=== PATIENT | male | born 1950 | race Caucasian/White ===

== ENCOUNTER 2019-11-18 07:13 | Inpatient (IN) | payer MEDICARE, SELFPAY ==
[2019-11-18] VITALS (26 sets, daily range): BP systolic 80–144; BP diastolic 56–99; PULSE 71–95; RESP 13–24; TEMP 36.4–38.2; O2SAT 86–100; BMI 41.2
--- NOTE | ~2019-11-18 | US_ITS ---
EXAMINATION: US renal BI DATE: 11/18/2019 12:39 INDICATION: Acute kidney injury. TECHNIQUE: Multiple ultrasound grayscale images of the kidneys were obtained. COMPARISON: Abdomen ultrasound 06/03/2017, CT abdomen and pelvis 05/30/2017 FINDINGS: The right kidney measures cm. The left kidney measures 11.8 x 5.9 x 4.8 cm. There is cortical thinnin g of the kidneys. The kidneys demonstrate normal parenchymal echogenicity. There is a 3.4 cm cyst in left kidney. There is a 4.0 cm mass of right kidney. There is a 14 mm cyst in right kidney. There is no hydronephrosis. The bladder is not well distended. IMPRESSION: 1. Cortical thinning of the kidneys. No hydronephrosis. 2. 4.0 cm mass in right kidney, worsened from 3.1 cm on 06/03/2017, consistent with renal cell carcin edy. Reviewed, dictated and finalized at location A. IMPRESSION: 1. Cortical thinning of the kidneys. No hydronephrosis. 2. 4.0 cm mass in right kidney, worsened from 3.1 cm on 06/03/2017, consistent with renal cell carcinoma.
--- NOTE | ~2019-11-18 | XR_ITS ---
EXAMINATION: XR ankle LT 2V DATE: 11/19/2019 20:14 INDICATION: Left ankle pain TECHNIQUE: Two views of the left ankle are obtained. COMPARISON: None. FINDINGS: Bone alignment is normal. No fracture is identified. There is mild lateral soft tissue swel ling of the ankle. A plantar calcaneal enthesophyte is noted. There is mild osteoarthritis of the mid foot. IMPRESSION: 1. No acute osseous abnormality. Reviewed, dictated and finalized at location A.
--- NOTE | ~2019-11-18 | XR_ITS ---
EXAMINATION: XR chest 1V portable EXAM DATE: 11/20/2019 05:48 INDICATION: Pneumonia. TECHNIQUE: Portable AP frontal chest x-ray was obtained. Comparison is made to prior examination from 11/19/2019. FINDINGS: Sternotomy wires are present without findings to suggest sternal dehiscence. Cardiac silhou ette is enlarged but stable in size compared to prior exam. Cardiac valve replacement. Some abnormal reticulation bilaterally, could be edema and/or pneumonia. There is no significant interval change. T here is no pneumothorax suspected. IMPRESSION: 1. Persistent mildly abnormal reticulation, could be pneumonia and/or edema. 2. Cardiomegaly. Reviewed, dictated and finalized at location A.
--- NOTE | ~2019-11-18 | US_ITS ---
EXAMINATION: US venous doppler [facility] DATE: 11/22/2019 11:17 INDICATION: Lower limb swelling. Shortness of breath. TECHNIQUE: Grayscale ultrasound images without and with compression and Doppler ultrasound images of the bilateral lower extremity veins were obtained. COMPARISON: None. FINDINGS: The visualized portions of right common femoral vein, profunda (deep) femoral vein, femoral vein, pop liteal vein, posterior tibial veins, peroneal veins, gastrocnemius vein and greater saphenous vein ou tflow are patent. The visualized portions of left common femoral vein, profunda femoral vein, femoral vein, popliteal v ein, posterior tibial veins, peroneal veins, gastrocnemius vein and greater saphenous vein outflow ar e patent. IMPRESSION: 1. No deep venous thrombosis in either lower limb. Reviewed, dictated and finalized at location A.
--- NOTE | ~2019-11-18 | XR_ITS ---
EXAMINATION: XR chest 1V portable DATE: 11/22/2019 06:23 INDICATION: Pneumonia TECHNIQUE: frontal view of the chest was obtained. COMPARISON: Chest radiograph dated 11/20/2019 and 11/21/[address] dated 02/26/2019 FINDINGS: No significant interval change in primarily reticular opacities in the bilateral lower lung zones. No pleural effusion or pneumothorax. Cardiomegaly. Median sternotomy wires and mitral valve repair. Sta ble appearance of widening of the central mediastinum likely resulting from unfolding of the aortic a rch exaggerated by rightward rotation of the patient. IMPRESSION: 1. Unchanged reticular opacities in the bilateral lower lung zones which could represent atelectasis, pulmonary edema or pneumonia. 2. Cardiomegaly. Reviewed, dictated and finalized at location A.
--- NOTE | ~2019-11-18 | XR_ITS ---
EXAMINATION: XR chest 1V portable INDICATION: Shortness of breath TECHNIQUE: Portable AP chest at 0831 hours COMPARISON: 04/29/2019 FINDINGS: The lung volumes are low. There are patchy bilateral airspace opacities. Cardiomegaly is no cherie. There is no pleural effusion or pneumothorax. There are changes of cardiac valve surgery. IMPRESSION: 1. Diffuse lung disease which could reflect pneumonia, atelectasis, or pulmonary edema. Reviewed, dictated and finalized at location A. IMPRESSION: 1. Diffuse lung disease which could reflect pneumonia, atelectasis, or pulmonar y edema.
--- NOTE | ~2019-11-18 | XR_ITS ---
EXAMINATION: XR chest 1V portable DATE: 11/23/2019 06:15 INDICATION: Pneumonia TECHNIQUE: frontal view of the chest was obtained. COMPARISON: Chest radiograph dated 11/22/2019 FINDINGS: No significant interval change in mild opacities at the bilateral lower lung zones. No pneumothorax o r definitive pleural effusion. Cardiomegaly. Median sternotomy wires and mitral valve repair. Unchang ed mediastinal silhouette suggesting unfolding of the aortic arch is exaggerated by rightward rotatio n of the patient. IMPRESSION: 1. Unchanged mild opacities in the bilateral lower lung zones which could represent atelectasis, pulm onary edema or pneumonia. 2. Cardiomegaly. Reviewed, dictated and finalized at location A. IMPRESSION: 1. Unchanged mild opacities in the bilateral lower lung zones which could repre sent atelectasis, pulmonary edema or pneumonia. 2. Cardiomegaly.
--- NOTE | ~2019-11-18 | XR_ITS ---
EXAMINATION: XR chest 1V portable DATE: 11/19/2019 05:49 INDICATION: Pneumonia. TECHNIQUE: A single frontal view of the chest was obtained. COMPARISON: Chest single view 11/18/2019, chest CT 02/26/2019 FINDINGS: There are mild airspace opacities in right mid and lower lung zones and left lower lung zon e. No pleural effusion or pneumothorax. Cardiomegaly is noted. There are changes of mitral valve repl acement. IMPRESSION: 1. Slightly worsened mild airspace opacities in right mid and lower lung zones and left lower lung zo ne, consistent with atelectasis versus pneumonia. 2. Cardiomegaly. Reviewed, dictated and finalized at location A. IMPRESSION: 1. Slightly worsened mild airspace opacities in right mid and lower lung zones and left lower lung zone, consistent with atelectasis versus pneumonia. 2. Cardiomegaly.
--- NOTE | ~2019-11-18 | XR_ITS ---
EXAMINATION: XR chest 1V portable EXAM DATE: 11/21/2019 06:31 INDICATION: Pneumonia. TECHNIQUE: Portable AP frontal chest x-ray was obtained. Comparison is made to prior examination from 11/20/2019. FINDINGS: Sternotomy wires are present without findings to suggest sternal dehiscence. Cardiac silho uette is enlarged but stable in size compared to prior exam. Cardiac valve replacement. Some abnormal reticulation bilaterally, could be edema and/or pneumonia. There is no significant interval change. There is no pneumothorax suspected. IMPRESSION: 1. Persistent mildly abnormal reticulation, could be pneumonia and/or edema. 2. Cardiomegaly. Reviewed, dictated and finalized at location A.
--- NOTE | ~2019-11-18 | NM_ITS ---
EXAMINATION: NM pulmonary perfusion DATE: 11/22/2019 10:45 INDICATION: Shortness of breath. Elevated d-dimer. TECHNIQUE: 5.2 mCi Tc-99m MAA by intravenous route. Scintigraphic images of the chest were obtained . COMPARISON: FINDINGS: There is relatively homogeneous perfusion throughout the lungs. No focal perfusion defects appreciate d. IMPRESSION: 1. Low probability for pulmonary embolism. Reviewed, dictated and finalized at location A.
--- NOTE | 2019-11-18 07:17 | ECG_ITS ---
Measurements Intervals Force Rate: 95 P: 263 DC: 126 QRS: -24 QRSD: 113 T: -2 QT: 365 QTc: 460 Interpretive Statements SINUS OR ECTOPIC ATRIAL RHYTHM RSR' IN V1 OR V2, CONSIDER RIGHT VENTRICULAR HYPERTROPHY OR RIGHT VCD BORDERLINE ST-T WAVE ABNORMALITY- ANTERIOR LEADS BASELINE ARTIFACT- I, II, III, AVR, AVL, AVF, V1-V3 ABNORMAL ECG Electronically Signed On 11-18-2019 7:24:56 CDT by Александр Covarrubias D.O.
[2019-11-18 07:28] LABS: Basophils Percent Auto 0.2 % (0.2-1.2); Eosinophils Absolute Auto 0.1 K/mm3 (0-0.3); Eosinophils Percent Auto 0.4 % (0-4.4); Hematocrit 39.2 % (42.0-52.0); Hemoglobin 12.1 g/dL (14.0-18.0); Immature Granulocyte Absolute 0.03 K/mm3 (0.00-0.031); Immature Granulocyte Percent A 0.2 % (0-0.5); Lymphocytes Absolute Auto 1.26 K/mm3 (0.9-3.2); Mean Corpuscular HGB Conc 30.9 g/dl (32-36); Mean Corpuscular Volume 97.3 fl (80-100); Mean Platelet Volume 9.7 fl (7.4-10.4); Monocytes Absolute Auto 0.6 K/mm3 (0.1-0.6); Monocytes Percent Auto 5.1 % (2.6-8.5); Neutrophils Absolute Auto 10.5 K/mm3 (1.3-6.7); Neutrophils Percent Auto 84.1 % (45.5-73.1); Platelet Count Result 291 k/mm3 (150-375); Red Blood Count 4.03 M/mm3 (4.6-6.20); Red Cell Distribution Width 15.4 % (11.5-14.5); White Blood Count 12.5 K/mm3 (4.5-10.0)
[2019-11-18 07:42] LABS: Alanine Aminotransferase 29 U/L (4-50); Albumin Level 4.5 g/dL (3.5-5.1); Alkaline Phosphatase 107 U/L (38-126); Aspartate Amino Transferase 64 U/L (17-59); Bilirubin,Total 0.7 mg/dL (0.2-1.3); Blood Urea Nitrogen 36 mg/dL (9-20); Calcium 9.6 mg/dL (8.4-10.2); Carbon Dioxide 28 mmol/L (22-30); Chloride 98 mmol/L (98-107); Estimated Glomerular Filt Rate 22; Glucose 111 mg/dL (75-110); Potassium 4.4 mmol/L (3.4-5.0); Sodium 135 mmol/L (137-145)
[2019-11-18] MEDS: SODIUM CHLORIDE 0.9% IV 1,000 ML 999 ML IV CONT ×2 (07:50→09:35)
[2019-11-18 08:00] LABS: Add Urine Microscopic? YES; Appearance Urine Clear (Clear); Bacteria Urine Trace /hpf; Bilirubin Urine Negative (Negative); Blood Urine Negative (Negative); Color Urine Yellow (Yellow); Glucose Urine UA Negative (Negative); Hyaline Casts Urine 20-29 /lpf; Ketones Urine Negative (Negative); Leukocyte Esterase Ur Negative LEU/UL (Negative); Mucus Urine Rare /lpf; Nitrate Urine Negative (Negative); Protein Urine 1+ mg/dL (Negative); Specific Grav Ur 1.014 (1.001-1.035); Squamous Epithelial Cell Urine Occasional /hpf (Few); Urobilinogen Urine Negative mg/dL (<2.0)
[2019-11-18 08:06] LABS: Lactic Acid 2.5 mmol/L (0.7-2.1)
[2019-11-18] MEDS: ACETAMINOPHEN 325 MG TABLET 650 MG PO (09:00)
--- NOTE | 2019-11-18 09:34 | ED.GENADULT ---
HPI - General Adult General Chief complaint: Weakness Stated complaint: WEAKNESS Time Seen by Provider: 11/18/19 07:29 Source: patient, family and EMS Mode of arrival: EMS Limitations: no limitations History of Present Illness HPI narrative: 68-year-old with a history of hypertension, CHF, A. fib was brought in by ambulance from home with the complaints of marked weakness. Patient states that he woke up to use the bathroom felt extremely weak and dizzy. He denies any chest pain, shortness of breath, cough. He states that he was feeling normal yesterday. No sick contacts at home. No history of nausea, vomiting or diarrhea. Onset (ago): hour(s) (2) Severity scale (1-10): 7 Exacerbating factors: none Associated symptoms: fever/chills Treatments prior to arrival: none Related Data Home Medications Medication Instructions Recorded Confirmed aspirin [Aspir-81] 11/18/19 buspirone mg 11/18/19 carvedilol 12.5 mg PO BID 11/18/19 duloxetine 30 mg PO DAILY 11/18/19 escitalopram oxalate [Lexapro] 10 mg PO DAILY 11/18/19 furosemide 40 mg PO DAILY 11/18/19 gabapentin 100 mg PO TID 11/18/19 lisinopril 5 mg PO DAILY 11/18/19 metoclopramide HCl 11/18/19 pantoprazole PO 11/18/19 polyethylene glycol 3350 [Miralax] 17 g PO DAILY 11/18/19 potassium chloride meq PO 11/18/19 ropinirole [Requip] 0.25 mg PO BID 11/18/19 sotalol 80 mg PO BID 11/18/19 tamsulosin 0.4 mg PO DAILY 11/18/19 trazodone 11/18/19 Allergies Allergy/AdvReac Type Severity Reaction Status Date / Time [id number] Reductase AdvReac Muscle Pain Verified 11/18/19 08:01 Inhibitor Review of Systems Review of Systems: All systems reviewed & are unremarkable except as noted in HPI and below Constitutional: Constitutional: Reports no additional constitutional complaints Eyes: Eyes: Reports no additional eye complaints ENT: Reports system reviewed and no additional complaints, except as documented Cardiovascular: Cardiovascular: Reports no additional cardiovascular complaints Respiratory: Respiratory: Reports no additional respiratory complaints Gastrointestinal: Gastrointestinal: Reports no additional gastrointestinal complaints Musculoskeletal: Musculoskeletal: Reports no additional musculoskeletal complaints Neurologic: Reports system reviewed and no additional complaints, except as documented PMFSH Past Medical History Medical History (Updated 11/18/19 @ 09:51 by Natanael Hawkins MD) Atrial fibrillation CAD (coronary artery disease) CHF (congestive heart failure) Hypertension Surgical History Surgical History (Updated 11/18/19 @ 09:51 by Natanael Hawkins MD) History of knee replacement Hx of CABG Hx of cholecystectomy Social History Social History (Updated 11/18/19 @ 09:52 by Natanael Hawkins MD) Smoking status: Never smoker Alcohol intake: never Substance use: never Living arrangements: with family Occupation/Education: retired Gender identity (if verbalized by the patient): Female Exam Narrative: Exam Narrative: GENERAL: Well-appearing, well-nourished, and in no acute distress. HEAD: Normocephalic, atraumatic. EYES: PERRLA and EOMI. ENT: Nares clear, no rhinorrhea or epistaxis. Mucous membranes moist. NECK: Supple. CHEST: Clear to auscultation. No respiratory distress. HEART: Regular rate and rhythm. No murmur heard. Normal peripheral pulses. ABDOMEN: Soft, non tender, non distended, normal active bowel sounds. EXTREMITIES: Normal range of motion. No edema. SKIN: Warm, dry, no rash. NEURO: No focal deficits. Alert and oriented x3. PSYCH: Normal mood and affect. Course Vital Signs Vital signs: Vital Signs Temperature 38.2 C H 11/18/19 07:18 Pulse Rate 94 11/18/19 07:18 Respiratory Rate 24 H 11/18/19 07:18 Blood Pressure 104/73 11/18/19 07:18 Pulse Oximetry 86 L 11/18/19 07:18 Temperature 37.2 C 11/18/19 09:17 Pulse Rate 82 11/18/19 09:00 Respiratory Rate 19
[2019-11-18 09:46] LABS: Alveolar/Arterial O2 Gradient 73.8 mmHg; Base Excess ABG -2.9 mEq/l (+/-2.0); Fractional Inspired Oxygen 32 %; HCO3 ABG 21.8 mEq/l (22.0-26.0); Oxygen Content ABG 15.4 %vol (16.0-22.0); Oxyhemoglobin 95.8 % THb (90.0-100.0); PCO2 ABG 37.8 mmHg (35.0-45.0); PO2 ABG 110.1 mmHg (80.0-100.0); PO2 FiO2 Ratio Arterial Blood 3.44 %; Total Hemoglobin 11.3 g/dL (12.0-18.0); pH ABG 7.379 (7.350-7.450)
[2019-11-18 09:47] LABS: Device NASAL CANNULA; Modified Allen's Test Pass; Site Drawn LEFT RADIAL
[2019-11-18 09:49] LABS: Lactate Dehydrogenase 430 U/L (313-618)
[2019-11-18 09:52] LABS: D Dimer 3.75 ug/mL (<0.48)
--- NOTE | 2019-11-18 09:53 | ED.WEAKNESS ---
HPI - Weakness General Chief complaint: Weakness Stated complaint: WEAKNESS Time Seen by Provider: 11/18/19 07:29 Source: patient, family and EMS Mode of arrival: EMS Limitations: no limitations History of Present Illness HPI Narrative: 68-year-old with a history of hypertension, CAD, status post CABG, atrial fibrillation, CHF here with complaints of marked weakness since this morning. Patient states he was feeling fine yesterday woke up to use the restroom felt extremely weak and dizzy family called 911 upon arrival to the ER patient denies any chest pain, shortness of breath. He states that he just feels weak. No sick contacts at home. He denies any nausea, vomiting or diarrhea. Patient states that his temperature yesterday at home was 97. MD Complaint: generalized weakness Onset (ago): hour(s) (2) Duration: constant Location: generalized Severity scale (1-10): 7 Related Data Home Medications Medication Instructions Recorded Confirmed aspirin [Aspir-81] 11/18/19 buspirone mg 11/18/19 carvedilol 12.5 mg PO BID 11/18/19 duloxetine 30 mg PO DAILY 11/18/19 escitalopram oxalate [Lexapro] 10 mg PO DAILY 11/18/19 furosemide 40 mg PO DAILY 11/18/19 gabapentin 100 mg PO TID 11/18/19 lisinopril 5 mg PO DAILY 11/18/19 metoclopramide HCl 11/18/19 pantoprazole PO 11/18/19 polyethylene glycol 3350 [Miralax] 17 g PO DAILY 11/18/19 potassium chloride meq PO 11/18/19 ropinirole [Requip] 0.25 mg PO BID 11/18/19 sotalol 80 mg PO BID 11/18/19 tamsulosin 0.4 mg PO DAILY 11/18/19 trazodone 11/18/19 Allergies Allergy/AdvReac Type Severity Reaction Status Date / Time [id number]-Fon-Fde Reductase AdvReac Muscle Pain Verified 11/18/19 08:01 Inhibitor Review of Systems Review of Systems: All systems reviewed & are unremarkable except as noted in HPI and below Constitutional: Constitutional: Reports as per HPI Eyes: Eyes: Reports no additional eye complaints ENT: Reports system reviewed and no additional complaints, except as documented Cardiovascular: Cardiovascular: Reports no additional cardiovascular complaints Respiratory: Respiratory: Reports no additional respiratory complaints Gastrointestinal: Gastrointestinal: Reports no additional gastrointestinal complaints Genitourinary: Genitourinary: Reports no additional male genitourinary complaints Musculoskeletal: Musculoskeletal: Reports no additional musculoskeletal complaints Neurologic: Reports system reviewed and no additional complaints, except as documented PMFSH Past Medical History Medical History (Updated 11/18/19 @ 09:51 by Natanael Hawkins MD) Atrial fibrillation CAD (coronary artery disease) CHF (congestive heart failure) Hypertension Surgical History Surgical History (Updated 11/18/19 @ 09:51 by Natanael Hawkins MD) History of knee replacement Hx of CABG Hx of cholecystectomy Social History Social History (Updated 11/18/19 @ 09:52 by Natanael Hawkins MD) Smoking status: Never smoker Alcohol intake: never Substance use: never Living arrangements: with family Occupation/Education: retired Gender identity (if verbalized by the patient): Female Exam Narrative: Exam Narrative: GENERAL: Well-appearing, well-nourished, and in no acute distress. HEAD: Normocephalic, atraumatic. EYES: PERRLA and EOMI. ENT: Nares clear, Mucous membranes moist. NECK: Supple. CHEST: Clear to auscultation. No respiratory distress. HEART: Regular rate and rhythm. No murmur heard. Normal peripheral pulses. ABDOMEN: Soft, non tender, non distended, normal active bowel sounds. EXTREMITIES: Normal range of motion. No edema. SKIN: Warm, dry, no rash. NEURO: No focal deficits. Alert and oriented x3. PSYCH: Normal mood and affect. Course Vital Signs Vital signs: Vital Signs Temperature 38.2 C H 11/18/19 07:18 Pulse Rate 94 11/18/19 07:18 Respiratory Rate 24 H 11/18/19 07:18 Blood Pressure 104/73 11/18/19 07:18 Pulse
--- NOTE | 2019-11-18 10:47 | ADMGEN ---
This patient, Emil Wallis, was admitted to Intensive Care Unit-7. Patient/family oriented to hospital policies and general routines including ID bracelet, bed and alarms, visiting hours, pain management, procedures, bathroom and other care routines, personal items, smoking policy, room service/diet, and visiting hours. Valuables list has been completed. Information on how to activate the Rapid Response Team has been discussed. Patient/Family are encouraged to report perceived risks to care and to ask questions if they do not understand what they are told or what they should do.
--- NOTE | 2019-11-18 11:28 | WPDCNINT ---
Assessment and Plan Assessment and plan (1) Sepsis: Qualifiers: Sepsis acute organ dysfunction status: unspecified Sepsis type: sepsis due to unspecified organism Qualified Code(s): A41.9 - Sepsis, unspecified organism Code(s): A41.9 - Sepsis, unspecified organism Status: Acute Assessment and Plan: patient presented with generalized weakness, leukocytosis, lactic acidosis, pneumonia on chest x-ray - repeat lactic acid levels are normal - patient given 2 L IV fluid bolus in the ED and continue patient on maintenance IV fluids - ceftriaxone and azithromycin have been started - blood pressures have been stable, will continue to monitor - blood cultures have been sent (2) Pneumonia: Qualifiers: Laterality: bilateral Lung location: lower lobe of lung Pneumonia type: due to unspecified organism Qualified Code(s): J18.9 - Pneumonia, unspecified organism Code(s): J18.9 - Pneumonia, unspecified organism Status: Acute Assessment and Plan: chest x-ray showed bilateral infiltrates - continue antibiotics as above - Ruling out COVID-19 (3) Generalized weakness: Code(s): R53.1 - Weakness Status: Acute Assessment and Plan: patient with generalized weakness could be related to kidney injury and uremia. Denies any myalgias as such - UA showed multiple hyaline casts, patient could be volume depleted - also with possible pneumonia on chest x-ray patient can be weak - will continue to monitor manage underlying issues (4) Acute kidney injury: Code(s): N17.9 - Acute kidney failure, unspecified Status: Acute Assessment and Plan: creatinine of 2.9 on admission - patient has been given 2 L IV fluids - continue maintenance IV fluids - lactic acid has normalized - will continue monitor renal function, electrolytes and urine output - renal ultrasound has been ordered to rule out obstructive uropathy, also patient stated that there was a lesion on one of his kidneys. (5) Suspected 2019 novel coronavirus infection: Code(s): R68.89 - Other general symptoms and signs Status: Acute Assessment and Plan: Patient presented with weakness, pneumonia on chest x-ray, leukocytosis, fevers of 100.8? F in the ED - [id number]-COV-[id number] PCR swab was sent on 11/18/2019 from the ED. (6) DVT prophylaxis: Code(s): Z29.9 - Encounter for prophylactic measures, unspecified Status: Acute Assessment and Plan: Lovenox renally dosed Additional Plan discussed with patient and updated him with his condition and plan of care. I answered all questions. Patient will be started on healthy diet code status: Full code Critical care time spent: 43 minutes Due to a high probability of clinically significant, life threatening deterioration, the patient required my highest level of preparedness to intervene emergently and I personally spent this critical care time directly and personally managing the patient. This critical care time included obtaining a history; examining the patient; pulse oximetry; ordering and review of studies; arranging urgent treatment with development of a management plan; evaluation of patient's response to treatment; frequent reassessment; and discussions with other providers. It was exclusive of separately billable procedures and treating other patients and teaching time. Please see Assessment and Plan section and the rest of the note for further information on patient assessment and treatment Shift Superintendent Caustic Cresylate Consult Note Consult date: 11/18/19 Time Seen: 10:54 Reason for consult: pneumonia, sepsis, rule out COVID-19, acute kidney injury, lactic acidosis HPI: Emil Wallis is a 68 year old male with past medical history of atrial fibrillation, coronary artery disease with history of CABG, history of CHF, hypertension, history of cholecystectomy and history of knee replacement presented to the ED on
--- NOTE | 2019-11-18 13:19 | PM.IMHP ---
H&P: HPI History of Present Illness Chief complaint: pneumonia Narrative: Emil Wallis is a 68 year old male with sleep apnea and CAD here for weakness. Patient states yesterday was having chills. Had chest ?pressure? off and on for an hour. There is no radiation of the painor shortness of breath. No cough. He denies fever. He has been feeling weak and dizzy. He had a T medications at home. Does feel confused although is oriented. Denies any abdominal pain or diarrhea. No dysuria or hematuria. He denies any exposure to COVID. No sick contacts. No neck pain. He feels weak 'all over'. Patient this morning but up to use the bathroom. As patient try to rise, he slid to the floor. He denies falling. He crawled on the floor until EMS was contacted. Patient was brought to the emergency room for evaluation. In the ER, the patietn noted to have a BP of 80/65 treated with IV fluids. Temp 100.8. CXR reviewed personally showing diffuse lung disease. He was started on Rocephin and Azithromycin. Blood Cx collected. He was tested for COVID. He was admitted for further care. Talked with . PCP started patient on Morphine 15mg Q6hr scheduled. Since starting morphine, patietn more confused and having low BP. Morphine dose was decreased 7.5mg Q6hr about 2 weeks ago with improvement but has been increasing slowly back to the 15mg Q6hr. 2 days ago he was on 15mg Q6hr but yesterday patient was weak and decreased Morphine. No morphine given today. states patient having occasional SOB but could felt to be chronic. Decreasing appetite over the past few weeks. Was on Bactrim (started on 11/09) for the tendon surgery to the right 2nd toe past week. Review of Systems Review of Systems: All systems reviewed & are unremarkable except as noted in HPI and below PMFSH Past Medical History Medical History (System 11/22/19 @ 11:01 by Millie English) Atrial fibrillation CAD (coronary artery disease) with 6 stents CHF (congestive heart failure) Echo in February 2019 EF 40-45% Chronic pain syndrome CKD (chronic kidney disease) stage 3, GFR 30-59 ml/min Depression with anxiety Hyperlipidemia Hypertension Mitral valve regurgitation CHI (obstructive sleep apnea) intolerant to CPAP Renal mass [place] to have Renal Cell CA Spinal stenosis Thoracic aortic aneurysm Surgical History Surgical History (System 11/22/19 @ 11:01 by Millie English) H/O mitral valve replacement [facility] in February 2019 showing severe MR History of knee replacement History of tonsillectomy and adenoidectomy History of total left knee replacement History of total right knee replacement Hx of CABG x3v in 2016 Hx of cholecystectomy Hx of hernia repair Hx of repair of right rotator cuff Hx of toe surgery Family History Family History (System 11/22/19 @ 11:01 by Millie English) Father Pancreatic cancer Father Family history of malignant neoplasm Mother Family history of malignant neoplasm Social History Social History (System 11/22/19 @ 11:01 by Millie English) Social History: Lifelong nonsmoker. Denies drug use. Drinks occasional alcholic beverage. Lives as home with his . 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 He is a full code. he nominates his to be the individual who would make decisions for him if he is unable Smoking status: Never smoker Alcohol intake: never Substance use: never Substance use type: does not use Living arrangements: with family Occupation/Education: retired Gender identity (if verbalized by the patient): Male Spiritual care concerns: No Agree to blood products: Yes Meds Home Medications and Allergies Home Medications Medication Instructions Recorded Confirmed Type furosemide 40 mg tablet 40 mg PO BID #180 tablet 06/10/19 Rx aspirin 81 mg tablet,delayed 81 mg PO DAILY 06/18/19 History release docusate sodium 100 mg capsule 100 mg PO
[2019-11-18] MEDS: PANTOPRAZOLE SODIUM IV 40 MG VIAL IV PUSH (14:20)
[2019-11-18] MEDS: ENOXAPARIN 30 MG/0.3 ML SYRINGE SUB-Q (14:20)
[2019-11-18] MEDS: ESCITALOPRAM OXALATE 10 MG TABLET PO (14:21)
[2019-11-18] MEDS: busPIRone HCL 10 MG TABLET PO ×2 (14:21→20:26)
[2019-11-18] MEDS: DULOXETINE HCL 30 MG CAPSULE.DR 90 MG PO (14:21)
[2019-11-18] MEDS: GABAPENTIN 100 MG CAPSULE PO ×2 (14:22→17:16)
[2019-11-18 21:19] LABS: Influenza Control Positive
[2019-11-19] VITALS (17 sets, daily range): BP systolic 108–142; BP diastolic 65–88; PULSE 86–98; RESP 14–24; TEMP 36.8–37.5; O2SAT 94–100
[2019-11-19] LABS: Creatinine Urine 95.6 mg/dL
[2019-11-19 00:14] LABS: Sodium Urine Random 49 meq/L
[2019-11-19 04:31] LABS: Base Excess ABG -0.1 mEq/l (+/-2.0); Carboxyhemoglobin 0.6 % THb (0-2.0); Fractional Inspired Oxygen 36 %; HCO3 ABG 25.2 mEq/l (22.0-26.0); Methemoglobin ABG 0.3 %THb (0-1.5); Oxygen Content ABG 14.3 %vol (16.0-22.0); Oxygen Saturation ABG 95.9 % (95.0-100.0); Oxyhemoglobin 94.3 % THb (90.0-100.0); PCO2 ABG 43.3 mmHg (35.0-45.0); PO2 ABG 82.5 mmHg (80.0-100.0); PO2 FiO2 Ratio Arterial Blood 2.29 %; Reduced Hemoglobin 4.8 %THb (0-5.0); Total Hemoglobin 10.7 g/dL (12.0-18.0); pH ABG 7.382 (7.350-7.450)
[2019-11-19 04:32] LABS: Device NASAL CANNULA; Modified Allen's Test Pass; Site Drawn LEFT RADIAL
[2019-11-19 05:18] LABS: Basophils Percent Auto 0.4 % (0.2-1.2); Eosinophils Absolute Auto 0.1 K/mm3 (0-0.3); Eosinophils Percent Auto 1.1 % (0-4.4); Hematocrit 33.8 % (42.0-52.0); Hemoglobin 10.7 g/dL (14.0-18.0); Immature Granulocyte Absolute 0.02 K/mm3 (0.00-0.031); Immature Granulocyte Percent A 0.2 % (0-0.5); Lymphocytes Absolute Auto 1.12 K/mm3 (0.9-3.2); Lymphocytes Percent Auto 13.8 % (18.3-44.2); Mean Corpuscular HGB Conc 31.7 g/dl (32-36); Mean Corpuscular Hemoglobin 30.1 pg (26-34); Mean Corpuscular Volume 95.2 fl (80-100); Mean Platelet Volume 9.9 fl (7.4-10.4); Monocytes Absolute Auto 0.7 K/mm3 (0.1-0.6); Monocytes Percent Auto 8.1 % (2.6-8.5); Neutrophils Absolute Auto 6.2 K/mm3 (1.3-6.7); Neutrophils Percent Auto 76.4 % (45.5-73.1); Platelet Count Result 270 k/mm3 (150-375); Red Blood Count 3.55 M/mm3 (4.6-6.20); Red Cell Distribution Width 15.2 % (11.5-14.5); White Blood Count 8.1 K/mm3 (4.5-10.0)
[2019-11-19 05:39] LABS: Blood Urea Nitrogen 30 mg/dL (9-20); Calcium 8.8 mg/dL (8.4-10.2); Carbon Dioxide 24 mmol/L (22-30); Chloride 103 mmol/L (98-107); Estimated CRCL calculation 47 ml/min; Estimated Glomerular Filt Rate 37; Glucose 102 mg/dL (75-110); Lactic Acid 0.7 mmol/L (0.7-2.1); Magnesium 1.8 mg/dL (1.6-2.3); Phosphorus 3.9 mg/dL (2.5-4.5); Potassium 4.1 mmol/L (3.4-5.0); Sodium 137 mmol/L (137-145)
[2019-11-19 05:43] LABS: Complement C3 141 mg/dL (88-165)
[2019-11-19] MEDS: PANTOPRAZOLE SODIUM IV 40 MG VIAL IV PUSH (08:12)
[2019-11-19] MEDS: ENOXAPARIN 30 MG/0.3 ML SYRINGE SUB-Q (08:12)
[2019-11-19] MEDS: GABAPENTIN 100 MG CAPSULE PO ×3 (08:13→16:13)
[2019-11-19] MEDS: DULOXETINE HCL 30 MG CAPSULE.DR 90 MG PO (08:13)
[2019-11-19] MEDS: ESCITALOPRAM OXALATE 10 MG TABLET PO (08:13)
[2019-11-19] MEDS: busPIRone HCL 10 MG TABLET PO ×2 (08:13→20:44)
[2019-11-19] MEDS: polyethylene glycoL 3350 17 GM POWD.PACK PO (08:13)
[2019-11-19 08:19] LABS: Creatine Kinase 780 U/L (55-170)
[2019-11-19] MEDS: ACETAMINOPHEN 325 MG TABLET 650 MG PO ×2 (08:22→20:46)
[2019-11-19] MEDS: ONDANSETRON INJ 4 MG/2 ML VIAL IV PUSH (08:35)
--- NOTE | 2019-11-19 10:07 | PM.IMPN ---
Progress Note: A&P Assessment and Plan (1) Sepsis: Qualifiers: Sepsis acute organ dysfunction status: unspecified Sepsis type: sepsis due to unspecified organism Qualified Code(s): A41.9 - Sepsis, unspecified organism Code(s): A41.9 - Sepsis, unspecified organism Status: Acute Assessment and Plan: Present on admission with fever, tachypnea, hypoxia and leukocytosis. Lactic acid 2.5 and patient with HoTN responsive to IVF. Related to PNA with CXR showing diffuse lung disease. Currently on Rocephin and Azithromycin. (2) Pneumonia: Qualifiers: Laterality: bilateral Lung location: lower lobe of lung Pneumonia type: due to unspecified organism Qualified Code(s): J18.9 - Pneumonia, unspecified organism Code(s): J18.9 - Pneumonia, unspecified organism Status: Acute Assessment and Plan: CXR as mentioned above. Concern for COVID and that his symptoms may worsen. Now on 4L. Continue close observation but okaty to move to IMU. (3) Suspected 2019 novel coronavirus infection: Code(s): R68.89 - Other general symptoms and signs Status: Acute Assessment and Plan: SARS-CcV-2 RNA ordered out of ER. DDimer 3.75 but LDH and Ferritin normal. Influenza negative. Persistent hypoxia and now up to 4L. CXR showing multilobar airspace disease. Continue to follow serial CXR. (4) Acute on chronic kidney failure: Qualifiers: Acute renal failure type: unspecified Chronic kidney disease stage: stage 3 (moderate) Qualified Code(s): N17.9 - Acute kidney failure, unspecified; N18.3 - Chronic kidney disease, stage 3 (moderate) Code(s): N17.9 - Acute kidney failure, unspecified; N18.9 - Chronic kidney disease, unspecified Status: Acute Assessment and Plan: Cr 2.9 on admission. Baseline Cr runs 1.3-1.8 in 2019 so patient well above baseline. states patient has not been eating well over the past few weeks probably related to the morphine. Patient is on Lasix at home. The Bactrim could also have caused MIRNA as well. Also consider related to current infectious process or possibly multifactorial. IVF started and Cr back down to 1.8. Good UOP and pateitn able to tolerate oral intake. DALTON showing no obstructive process. Follow renal function. IVF stopped. (5) Generalized weakness: Code(s): R53.1 - Weakness Status: Acute Assessment and Plan: Suspect this is related to the scheduled Morphine and PNA. His spinal stenosis may also be contributing to his weakness. The severe MR noted by Echo last year also could be causing the weakness as well. He christelle need PT/OT when more stable. Will have him out of bed today. (6) CHF (congestive heart failure): Qualifiers: Heart failure chronicity: chronic Heart failure type: systolic Qualified Code(s): I50.22 - Chronic systolic (congestive) heart failure Code(s): I50.9 - Heart failure, unspecified Status: Acute Assessment and Plan: Echo in February 2019 showing EF 40-45%. CXR reviewed but doubt pulmonary edema. Lasix, Coreg and Lisinopril on hold. Monitor closely. (7) Renal mass: Code(s): N28.89 - Other specified disorders of kidney and ureter Status: Acute Assessment and Plan: Patient with know renal mass concerning for renal cell CA. This has been noted back in 2017 but slow growing. Defer to outpatient for further workup. (8) Atrial fibrillation: Qualifiers: Atrial fibrillation type: paroxysmal Qualified Code(s): I48.0 - Paroxysmal atrial fibrillation Code(s): I48.91 - Unspecified atrial fibrillation Status: Acute Assessment and Plan: Patient with a hx of AFib. Tele showing NSR. Sotalol on hold currently. QTc 460 by EKG on admission. Also on Coreg but not on anticoagulation. Will add back Sotalol and monitor QTc since patient on Azithro as well. Hold Coreg for now.
[2019-11-19] MEDS: MORPHINE SULFATE 2 MG/ML INJ IV PUSH ×2 (10:14→16:11)
[2019-11-19] MEDS: ASPIRIN 81 MG ENTERIC TABLET PO (11:38)
[2019-11-19] MEDS: TAMSULOSIN HCL 0.4 MG CAPSULE PO (11:38)
--- NOTE | 2019-11-19 12:26 | WPDINTPN ---
Progress Note: A&P Assessment and Plan (1) Sepsis: Qualifiers: Sepsis acute organ dysfunction status: unspecified Sepsis type: sepsis due to unspecified organism Qualified Code(s): A41.9 - Sepsis, unspecified organism Code(s): A41.9 - Sepsis, unspecified organism Status: Acute Assessment and Plan: patient presented with generalized weakness, leukocytosis, lactic acidosis, pneumonia on chest x-ray - Lactic acid has normalized, patient taking adequate p.o. intake, urine output has been adequate,creatinine trending down - continue ceftriaxone and azithromycin. - blood pressures have been stable, will continue to monitor - blood cultures have been sent (2) Pneumonia: Qualifiers: Laterality: bilateral Lung location: lower lobe of lung Pneumonia type: due to unspecified organism Qualified Code(s): J18.9 - Pneumonia, unspecified organism Code(s): J18.9 - Pneumonia, unspecified organism Status: Acute Assessment and Plan: chest x-ray showed bilateral infiltrates - continue antibiotics as above - Ruling out COVID-19, SARS-COV-2 PCR has been obtained (3) Generalized weakness: Code(s): R53.1 - Weakness Status: Acute Assessment and Plan: patient with generalized weakness could be related to Uremia, possible weakness secondary to chronic morphine use, Possible due to severe MR. Denies any myalgias as such . Strength 5/5 in all extremities, sensations intact - UA showed multiple hyaline casts, patient could be volume depleted - also with possible pneumonia on chest x-ray, could be causing some weakness - patient will require PT/OT evaluation (4) Acute kidney injury: Code(s): N17.9 - Acute kidney failure, unspecified Status: Acute Assessment and Plan: creatinine of 2.9 on admission - patient was adequately fluid resuscitated, adequate p.o. intake. IV fluids were discontinued on 11/18/2019. - Creatinine down to 1.7 today - lactic acid has normalized - will continue monitor renal function, electrolytes and urine output - renal ultrasound 11/18/2019 showed cortical thickening of kidneys, no hydronephrosis. 4.0 cm mass in the right kidney, worsened from 3.1 cm on 06/03/2017 consistent with renal cell carcinoma. (5) Suspected 2019 novel coronavirus infection: Code(s): R68.89 - Other general symptoms and signs Status: Acute Assessment and Plan: Patient presented with weakness, pneumonia on chest x-ray, leukocytosis, fevers of 100.8? F in the ED - KRUPA-COV-2 PCR swab was sent on 11/18/2019 from the ED - Patient has been afebrile overnight (6) DVT prophylaxis: Code(s): Z29.9 - Encounter for prophylactic measures, unspecified Status: Acute Assessment and Plan: Lovenox renally dosed Additional Plan discussed with patient and updated him with his condition and plan of care. I answered all questions. code status: Full code Critical care time spent: 32 minutes Due to a high probability of clinically significant, life threatening deterioration, the patient required my highest level of preparedness to intervene emergently and I personally spent this critical care time directly and personally managing the patient. This critical care time included obtaining a history; examining the patient; pulse oximetry; ordering and review of studies; arranging urgent treatment with development of a management plan; evaluation of patient's response to treatment; frequent reassessment; and discussions with other providers. It was exclusive of separately billable procedures and treating other patients and teaching time. Please see Assessment and Plan section and the rest of the note for further information on patient assessment and treatment Subjective Date/time seen: 11/19/19 12:26 Reason for consult: pneumonia, sepsis, rule out COVID-19, acute kidney injury, lactic acidosis 11/18
[2019-11-19 13:31] LABS: SARS-CoV-2 RNA PCR Negative
--- NOTE | 2019-11-19 14:52 | PCDIET ---
This patient, Emil Wallis, was received from ICU-7 on 11/19/19 at 1452. Personal belongings list checked and signed. Patient/family oriented to unit policies and routines
[2019-11-19] MEDS: SOTALOL HCL 80 MG TABLET PO (16:13)
[2019-11-19] MEDS: TRAZODONE HCL 50 MG TABLET 100 MG PO (20:45)
[2019-11-19] MEDS: ALPRAZOLAM 0.5 MG TABLET PO (20:48)
[2019-11-20] VITALS (18 sets, daily range): BP systolic 121–137; BP diastolic 68–86; PULSE 81–110; RESP 20–30; TEMP 36.6–39.8; O2SAT 93–99
[2019-11-20] MEDS: MORPHINE SULFATE 2 MG/ML INJ IV PUSH ×3 (00:40→20:49)
[2019-11-20] MEDS: ACETAMINOPHEN 325 MG TABLET 650 MG PO ×2 (04:33→18:47)
[2019-11-20] MEDS: ALPRAZOLAM 0.5 MG TABLET PO (04:33)
[2019-11-20 04:53] LABS: Hematocrit 32.5 % (42.0-52.0); Hemoglobin 10.3 g/dL (14.0-18.0); Mean Corpuscular HGB Conc 31.7 g/dl (32-36); Mean Corpuscular Hemoglobin 30.4 pg (26-34); Mean Corpuscular Volume 95.9 fl (80-100); Mean Platelet Volume 10.2 fl (7.4-10.4); Platelet Count Result 260 k/mm3 (150-375); Red Blood Count 3.39 M/mm3 (4.6-6.20); Red Cell Distribution Width 15.5 % (11.5-14.5)
[2019-11-20 05:06] LABS: Lactic Acid 0.8 mmol/L (0.7-2.1)
[2019-11-20 05:13] LABS: Blood Urea Nitrogen 22 mg/dL (9-20); Carbon Dioxide 27 mmol/L (22-30); Chloride 102 mmol/L (98-107); Estimated CRCL calculation 60 ml/min; Estimated Glomerular Filt Rate 50; Glucose 110 mg/dL (75-110); Magnesium 1.7 mg/dL (1.6-2.3); Phosphorus 3.8 mg/dL (2.5-4.5); Potassium 4.1 mmol/L (3.4-5.0); Sodium 136 mmol/L (137-145)
--- NOTE | 2019-11-20 07:00 | ECG_ITS ---
Measurements Intervals [place] Rate: 81 P: -78 UT: 123 QRS: -22 QRSD: 112 T: 19 QT: 398 QTc: 465 Interpretive Statements SINUS OR ECTOPIC ATRIAL RHYTHM ATRIAL AND VENTRICULAR PREMATURE COMPLEXES INTRAVENTRICULAR CONDUCTION DELAY VOLTAGE CRITERIA FOR LVH NONSPECIFIC ST & T-WAVE ABNORMALITY- ANTEROLAT/LAT LEADS ABNORMAL ECG Electronically Signed On 11-20-2019 7:56:12 CDT by Александр Covarrubias D.O.
[2019-11-20] MEDS: SOTALOL HCL 80 MG TABLET PO ×2 (08:44→18:47)
[2019-11-20] MEDS: ENOXAPARIN 30 MG/0.3 ML SYRINGE SUB-Q (08:44)
[2019-11-20] MEDS: GABAPENTIN 100 MG CAPSULE PO ×3 (08:44→18:47)
[2019-11-20] MEDS: DULOXETINE HCL 30 MG CAPSULE.DR 90 MG PO (08:44)
[2019-11-20] MEDS: busPIRone HCL 10 MG TABLET PO ×2 (08:44→20:48)
[2019-11-20] MEDS: PANTOPRAZOLE 40 MG TABLET PO (08:44)
[2019-11-20] MEDS: TAMSULOSIN HCL 0.4 MG CAPSULE PO (08:45)
[2019-11-20] MEDS: polyethylene glycoL 3350 17 GM POWD.PACK PO (08:45)
[2019-11-20] MEDS: ESCITALOPRAM OXALATE 10 MG TABLET PO (08:45)
[2019-11-20] MEDS: ASPIRIN 81 MG ENTERIC TABLET PO (08:45)
--- NOTE | 2019-11-20 11:56 | PM.IMPN ---
Progress Note: A&P Assessment and Plan (1) Sepsis: Qualifiers: Sepsis acute organ dysfunction status: unspecified Sepsis type: sepsis due to unspecified organism Qualified Code(s): A41.9 - Sepsis, unspecified organism Code(s): A41.9 - Sepsis, unspecified organism Status: Acute Assessment and Plan: Present on admission with fever, tachypnea, hypoxia and leukocytosis. Lactic acid 2.5 and patient with HoTN responsive to IVF. Related to PNA with CXR showing persistent reticulation. Currently on Rocephin and Azithromycin. Wean O2 as toelrated. Consider Lasix as BP toerlates. (2) Pneumonia: Qualifiers: Laterality: bilateral Lung location: lower lobe of lung Pneumonia type: due to unspecified organism Qualified Code(s): J18.9 - Pneumonia, unspecified organism Code(s): J18.9 - Pneumonia, unspecified organism Status: Acute Assessment and Plan: CXR as mentioned above. Was on 4L but wean to 3.5 L now. Continue IV Rocephin and azithromycin. Wean oxygen as tolerated. Blood cultures no growth to date. (3) Suspected 2019 novel coronavirus infection: Code(s): R68.89 - Other general symptoms and signs Status: Acute Assessment and Plan: SARS-CcV-2 RNA ordered out of ER but negative. (4) Acute on chronic kidney failure: Qualifiers: Acute renal failure type: unspecified Chronic kidney disease stage: stage 3 (moderate) Qualified Code(s): N17.9 - Acute kidney failure, unspecified; N18.3 - Chronic kidney disease, stage 3 (moderate) Code(s): N17.9 - Acute kidney failure, unspecified; N18.9 - Chronic kidney disease, unspecified Status: Acute Assessment and Plan: Cr 2.9 on admission. Baseline Cr runs 1.3-1.8 in 2019 so patient well above baseline. states patient has not been eating well over the past few weeks probably related to the morphine. Patient is on Lasix at home. The Bactrim could also have caused MIRNA as well. Also consider related to current infectious process or possibly multifactorial. IVF given and Cr dropped to 1.8. Cr continues to improve off Lasix to 1.4. DALTON showing no obstructive process. Tolerating small amounts of oral intake. Add supplements. Continue to hold lisinopril and Lasix for now. (5) Generalized weakness: Code(s): R53.1 - Weakness Status: Acute Assessment and Plan: Suspect this is related to the scheduled Morphine and PNA. His spinal stenosis may also be contributing to his weakness. The severe MR noted by Echo last year also could be causing the weakness as well. PT/OT started. Adjust pain medications. (6) CHF (congestive heart failure): Qualifiers: Heart failure type: systolic Heart failure chronicity: chronic Qualified Code(s): I50.22 - Chronic systolic (congestive) heart failure Code(s): I50.9 - Heart failure, unspecified Status: Acute Assessment and Plan: Echo in February 2019 showing EF 40-45%. CXR reviewed but doubt pulmonary edema. Lasix, Coreg and Lisinopril on hold. Will resume Coreg first. Monitor closely. (7) Renal mass: Code(s): N28.89 - Other specified disorders of kidney and ureter Status: Acute Assessment and Plan: Patient with know renal mass concerning for renal cell CA. This has been noted back in 2017 but slow growing. Defer to outpatient for further workup/treatment. (8) Atrial fibrillation: Qualifiers: Atrial fibrillation type: paroxysmal Qualified Code(s): I48.0 - Paroxysmal atrial fibrillation Code(s): I48.91 - Unspecified atrial fibrillation Status: Acute Assessment and Plan: Patient with a hx of AFib. Tele showing NSR. Sotalol resumed. QTc 460 on admission and now at 465. Coreg on hold. BP and HR stable so will resume. Per , patient no longer on Xarelto. Continue tele. (9) Depression with anxiety: Code(s): F41
[2019-11-20] MEDS: MAGNESIUM SULF 2 GM/WATER 50ML 2 GM/50 ML BAG IVPB (12:41)
[2019-11-20 19:17] LABS: Complement Total CH50 >60 U/mL (31-60)
[2019-11-20] MEDS: carvediloL 12.5 MG TABLET PO (20:48)
[2019-11-20] MEDS: TRAZODONE HCL 50 MG TABLET 100 MG PO (20:49)
[2019-11-21] VITALS (19 sets, daily range): BP systolic 98–130; BP diastolic 65–88; PULSE 79–119; RESP 18–30; TEMP 36.3–38.4; O2SAT 91–100
[2019-11-21] MEDS: MORPHINE SULFATE 2 MG/ML INJ IV PUSH (02:45)
[2019-11-21] MEDS: ALPRAZOLAM 0.5 MG TABLET PO (04:19)
[2019-11-21 04:52] LABS: Blood Urea Nitrogen 20 mg/dL (9-20); Calcium 9.3 mg/dL (8.4-10.2); Carbon Dioxide 29 mmol/L (22-30); Chloride 99 mmol/L (98-107); Estimated CRCL calculation 69 ml/min; Estimated Glomerular Filt Rate 60; Glucose 111 mg/dL (75-110); Magnesium 1.9 mg/dL (1.6-2.3); Potassium 4.1 mmol/L (3.4-5.0); Sodium 133 mmol/L (137-145)
[2019-11-21] MEDS: ESCITALOPRAM OXALATE 10 MG TABLET PO (08:14)
[2019-11-21] MEDS: TAMSULOSIN HCL 0.4 MG CAPSULE PO (08:14)
[2019-11-21] MEDS: ASPIRIN 81 MG ENTERIC TABLET PO (08:15)
[2019-11-21] MEDS: SOTALOL HCL 80 MG TABLET PO ×2 (08:15→17:43)
[2019-11-21] MEDS: PANTOPRAZOLE 40 MG TABLET PO (08:15)
[2019-11-21] MEDS: DULOXETINE HCL 30 MG CAPSULE.DR 90 MG PO (08:15)
[2019-11-21] MEDS: carvediloL 12.5 MG TABLET PO ×2 (08:15→20:42)
[2019-11-21] MEDS: GABAPENTIN 100 MG CAPSULE PO ×3 (08:15→17:43)
[2019-11-21] MEDS: ENOXAPARIN 30 MG/0.3 ML SYRINGE SUB-Q (08:15)
[2019-11-21] MEDS: AZITHROMYCIN 250 MG TABLET PO (08:15)
[2019-11-21] MEDS: polyethylene glycoL 3350 17 GM POWD.PACK PO (08:15)
[2019-11-21] MEDS: busPIRone HCL 10 MG TABLET PO ×2 (08:15→20:43)
[2019-11-21] MEDS: ACETAMINOPHEN 325 MG TABLET 650 MG PO ×2 (10:11→18:44)
--- NOTE | 2019-11-21 16:31 | PM.IMPN ---
Progress Note: A&P Assessment and Plan (1) Sepsis: Qualifiers: Sepsis acute organ dysfunction status: unspecified Sepsis type: sepsis due to unspecified organism Qualified Code(s): A41.9 - Sepsis, unspecified organism Code(s): A41.9 - Sepsis, unspecified organism Status: Acute Assessment and Plan: Present on admission with fever, tachypnea, hypoxia and leukocytosis. Lactic acid 2.5 and patient with HoTN responsive to IVF. Related to PNA. Currently on Rocephin and Azithromycin. CXR today reviewed showing persistent reticulation. Still having fevers. Wean O2 as tolerated. Consider adjusting abx if fevers persist. (2) Pneumonia: Qualifiers: Laterality: bilateral Lung location: lower lobe of lung Pneumonia type: due to unspecified organism Qualified Code(s): J18.9 - Pneumonia, unspecified organism Code(s): J18.9 - Pneumonia, unspecified organism Status: Acute Assessment and Plan: CXR as mentioned above. Was on 4L but wean to 2L now. Better overall except still with fevers. Continue IV Rocephin and azithromycin. Wean oxygen as tolerated. Blood cultures no growth to date. (3) Suspected 2019 novel coronavirus infection: Code(s): R68.89 - Other general symptoms and signs Status: Acute Assessment and Plan: SARS-CoV-2 RNA ordered out of ER and negative. D-Dimer was positive and felt related to COVID. Could be related to the PNA but will check for VTE now that the COVID test was negative. Was on anticoagulation recently after his knee replacement. Will give Eliquis one dose to cover while awaiting for study results. (4) Acute on chronic kidney failure: Qualifiers: Acute renal failure type: unspecified Chronic kidney disease stage: stage 3 (moderate) Qualified Code(s): N17.9 - Acute kidney failure, unspecified; N18.3 - Chronic kidney disease, stage 3 (moderate) Code(s): N17.9 - Acute kidney failure, unspecified; N18.9 - Chronic kidney disease, unspecified Status: Acute Assessment and Plan: Cr 2.9 on admission. Baseline Cr runs 1.3-1.8 in 2019 so patient well above baseline. states patient has not been eating well over the past few weeks probably related to the morphine. Patient is on Lasix at home. The Bactrim could also have caused MIRNA as well. Also consider related to current infectious process or possibly multifactorial. IVF given and Cr dropped to 1.8. Cr continues to improve off IV fluids to 1.2 today. DALTON showing no obstructive process. Encourage oral intake. Continue to hold lisinopril and Lasix for now given the soft BP (98/48). (5) Generalized weakness: Code(s): R53.1 - Weakness Status: Acute Assessment and Plan: Suspect this is related to the scheduled Morphine and PNA. His spinal stenosis may also be contributing to his weakness. The severe MR noted by Echo last year also could be causing the weakness as well. Continue PT/OT. Advance the Ultram and change Morphine to Percocet. (6) CHF (congestive heart failure): Qualifiers: Heart failure chronicity: chronic Heart failure type: systolic Qualified Code(s): I50.22 - Chronic systolic (congestive) heart failure Code(s): I50.9 - Heart failure, unspecified Status: Acute Assessment and Plan: Echo in February 2019 showing EF 40-45%. CXR as mentioned above. Lasix and Lisinopril on hold. Continue Coreg. Monitor closely. Check Echo given the severe MR. (7) Renal mass: Code(s): N28.89 - Other specified disorders of kidney and ureter Status: Acute Assessment and Plan: Patient with know renal mass concerning for renal cell CA. This has been noted back in 2017 but slow growing. Defer to outpatient for further workup/treatment. (8) Atrial fibrillation: Qualifiers: Atrial fibrillation type: paroxysmal Qualified Code(s): I48.0 - Paroxysmal atr
[2019-11-21] MEDS: TRAZODONE HCL 50 MG TABLET 200 MG PO (20:42)
[2019-11-21] MEDS: APIXABAN 5 MG TABLET 10 MG PO (20:43)
[2019-11-21 22:10] LABS: ANCA Screen Negative (Negative)
[2019-11-22] VITALS (23 sets, daily range): BP systolic 98–130; BP diastolic 50–96; PULSE 75–93; RESP 16–30; TEMP 36.3–36.9; O2SAT 92–99
--- NOTE | 2019-11-22 | ECHO_ITS ---
Patient Info Name: Emil Wallis Age: 68 years : 1950 Gender: Male Ht: 70 in Wt: 285 lbs BSA: 2.58 m2 HR: 80 bpm BP: 127 / 80 mmHg Heart Rhythm: Sinus Rhythm Technical Quality: Poor Exam Date: 11/22/2019 1:04 PM Exam Location: [facility] Pulmonary Patient Status: Inpatient Admit Date: 11/18/2019 Staff Ordering Physician: Mundo Farr MD Trommel Tender: Sharda Lawrence RDCS Attending Provider: Mundo Farr MD Exam Type: CA echo dop color flow w con Study Info Indications - mitral reguritation Complete two-dimensional, color flow and Doppler transthoracic echocardiogram is performed with contrast to opacify the left ventrical and to improve the deliniation of the left ventrical endocarial boarders. Contrast/Agitated Saline Contrast/Ag. Saline: Definity Amount: 1.00 ml Reason for Poor Study: patient body habitus Summary 1. Left ventricular chamber dimension is normal. 2. Left ventricular systolic function is normal, estimated at 55-60%. 3. Left atrial chamber dimension is moderately enlarged. 4. There is mild aortic valve sclerosis. 5. There is trace mitral valve regurgitation. 6. 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 7. Compared to the prior exam from February of 2019 there is no apparent difference. Mitral valve repair continues to be nicely intact. 8. There is some hypokinesis of the inferior segment. Left Ventricle Left ventricular chamber dimension is normal. Left ventricular systolic function is normal, estimated at 55-60%. The left ventricular diastolic function is normal. There is some hypokinesis of the inferior segment. Right Ventricle Right ventricular chamber dimension is normal. Left Atria Left atrial chamber dimension is moderately enlarged. Right Atria Right atrial chamber dimension is normal. Aortic Valve The aortic valve is trileaflet. There is mild aortic valve sclerosis. Pulmonic Valve The pulmonic valve is not well visualized. Mitral Valve The mitral valve has normal leaflets. There is trace mitral valve regurgitation. 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 Tricuspid Valve The tricuspid valve leaflets are normal. Pericardium/Pleural The pericardium appears normal. Aorta The aortic root size at the sinus of Valsalva is normal. Left Ventricular Outflow Tract Name Value Normal LVOT 2D LVOT Diameter 2.44 cm LVOT Doppler LVOT Peak Gradient 4 mmHg LVOT Mean Gradient 3 mmHg LVOT VTI 19.92 cm LVOT VTI/AV VTI Ratio 0.73 LVOT Stroke Volume 92.78 ml LVOT CO 7.99 l/min LVOT CI 3.09 L/min/m2 Pulmonic Valve Name Value Normal RVOT Doppler
[2019-11-22] MEDS: ACETAMINOPHEN 325 MG TABLET 650 MG PO (02:36)
[2019-11-22 04:31] LABS: Albumin 3.4 g/dL (3.8-4.8); Alpha 1 Globulin 0.4 g/dL (0.2-0.3); Alpha 2 Globulin 0.7 g/dL (0.5-0.9); Beta 1 Globulin 0.4 g/dL (0.4-0.6); Protein, Total 6.4 g/dL (6.1-8.1)
[2019-11-22 05:22] LABS: Blood Urea Nitrogen 26 mg/dL (9-20); Calcium 9.3 mg/dL (8.4-10.2); Carbon Dioxide 27 mmol/L (22-30); Chloride 97 mmol/L (98-107); Estimated CRCL calculation 57 ml/min; Estimated Glomerular Filt Rate 50; Glucose 103 mg/dL (75-110); Magnesium 1.8 mg/dL (1.6-2.3); Potassium 3.9 mmol/L (3.4-5.0); Sodium 134 mmol/L (137-145)
[2019-11-22] MEDS: APIXABAN 5 MG TABLET 10 MG PO (09:31)
[2019-11-22] MEDS: ASPIRIN 81 MG ENTERIC TABLET PO (09:32)
[2019-11-22] MEDS: AZITHROMYCIN 250 MG TABLET PO (09:33)
[2019-11-22] MEDS: busPIRone HCL 10 MG TABLET PO ×2 (09:33→20:14)
[2019-11-22] MEDS: carvediloL 12.5 MG TABLET PO ×2 (09:33→20:14)
[2019-11-22] MEDS: GABAPENTIN 100 MG CAPSULE PO ×3 (09:38→18:18)
[2019-11-22] MEDS: PANTOPRAZOLE 40 MG TABLET PO (09:38)
[2019-11-22] MEDS: DULOXETINE HCL 30 MG CAPSULE.DR 90 MG PO (09:38)
[2019-11-22] MEDS: SOTALOL HCL 80 MG TABLET PO ×2 (09:39→18:18)
[2019-11-22] MEDS: polyethylene glycoL 3350 17 GM POWD.PACK PO ×2 (09:40→18:17)
[2019-11-22] MEDS: TAMSULOSIN HCL 0.4 MG CAPSULE PO (09:40)
--- NOTE | 2019-11-22 10:20 | PCOTNOTE ---
Patient unavailable to be seen for OT, in procedure. Will attempt later again this date.
[2019-11-22] MEDS: ESCITALOPRAM OXALATE 10 MG TABLET PO (12:30)
--- NOTE | 2019-11-22 13:46 | PM.IMPN ---
Progress Note: A&P Assessment and Plan (1) Sepsis: Qualifiers: Sepsis acute organ dysfunction status: unspecified Sepsis type: sepsis due to unspecified organism Qualified Code(s): A41.9 - Sepsis, unspecified organism Code(s): A41.9 - Sepsis, unspecified organism Status: Acute Assessment and Plan: Present on admission with fever, tachypnea, hypoxia and leukocytosis. Lactic acid 2.5 and patient with HoTN responsive to IVF. Probably related to PNA. Currently on Rocephin and Azithromycin. CXR today(11/21) showing unchanged reticular opacities. Still with fever again last night. Fevers seem to occur at night. Check MRSA nasal swab and add Vanco. (2) Pneumonia: Qualifiers: Laterality: bilateral Lung location: lower lobe of lung Pneumonia type: due to unspecified organism Qualified Code(s): J18.9 - Pneumonia, unspecified organism Code(s): J18.9 - Pneumonia, unspecified organism Status: Acute Assessment and Plan: CXR as mentioned above. Was on 4L but wean to 2L and remaining stable. Continue IV Rocephin and azithromycin. Vanco to be added today. Wean oxygen as tolerated. Blood cultures no growth to date. (3) Suspected 2019 novel coronavirus infection: Code(s): R68.89 - Other general symptoms and signs Status: Acute Assessment and Plan: SARS-CoV-2 RNA ordered out of ER and negative. D-Dimer was positive and initally felt related to COVID. Bilateral LE venous doppler negative. VQ scan low probability. Resume Lovenox for DVT prophylaxis. (4) Acute on chronic kidney failure: Qualifiers: Acute renal failure type: unspecified Chronic kidney disease stage: stage 3 (moderate) Qualified Code(s): N17.9 - Acute kidney failure, unspecified; N18.3 - Chronic kidney disease, stage 3 (moderate) Code(s): N17.9 - Acute kidney failure, unspecified; N18.9 - Chronic kidney disease, unspecified Status: Acute Assessment and Plan: Cr 2.9 on admission. Baseline Cr runs 1.3-1.8 in 2019 so patient well above baseline. states patient has not been eating well over the past few weeks probably related to the morphine. Patient is on Lasix at home. The Bactrim could also have caused MIRNA as well. Also consider related to current infectious process or possibly multifactorial. IVF given and Cr back to baseline. DALTON showing no obstructive process. BP better so will add back low dose oral Lasix and advance as tolerated. Monitor closely (5) Generalized weakness: Code(s): R53.1 - Weakness Status: Acute Assessment and Plan: Suspect this is related to the scheduled Morphine and PNA. His spinal stenosis may also be contributing to his weakness. The severe MR noted by [facility] last year also could be causing the weakness as well. Continue PT/OT. Pain medications adjusted. Continue to follow. Will likely need SNF placement. (6) CHF (congestive heart failure): Qualifiers: Heart failure chronicity: chronic Heart failure type: systolic Qualified Code(s): I50.22 - Chronic systolic (congestive) heart failure Code(s): I50.9 - Heart failure, unspecified Status: Acute Assessment and Plan: Echo in February 2019 showing EF 40-45%. CXR as mentioned above. Lasix and Lisinopril on hold. Continue Coreg. Echo ordered given the severe MR and is pending. Low dose lasix. (7) Renal mass: Code(s): N28.89 - Other specified disorders of kidney and ureter Status: Acute Assessment and Plan: Patient with know renal mass concerning for renal cell CA. This has been noted back in 2017 but slow growing. Defer to outpatient for further workup/treatment. (8) Atrial fibrillation: Qualifiers: Atrial fibrillation type: paroxysmal Qualified Code(s): I48.0 - Paroxysmal atrial fibrillation Code(s): I48.91 - Unspecified atrial fibrillation Status: Acute
[2019-11-22] MEDS: PERFLUTREN LIPID MICROSPHERES 1.5 ML VIAL DILUTED TO 10 ML TOTAL VOLUME (13:47)
[2019-11-22] MEDS: FUROSEMIDE 20 MG TABLET PO ×2 (15:24→18:19)
[2019-11-22] MEDS: TRAMADOL HCL 50 MG TABLET PO (15:25)
[2019-11-22] MEDS: TRAZODONE HCL 50 MG TABLET 200 MG PO (20:13)
[2019-11-22] MEDS: ALPRAZOLAM 0.5 MG TABLET PO (21:47)
[2019-11-22 23:13] LABS: Abnormal Protein Band 1 3 mg/dL; Creatinine, Random Urine 95 mg/dL (20-320); Total Protein/Creatinine Ratio 137 mg/g creat (22-128)
[2019-11-23] VITALS (14 sets, daily range): BP systolic 121–136; BP diastolic 55–99; PULSE 64–88; RESP 16–30; TEMP 36.7–37.7; O2SAT 92–94
[2019-11-23 05:20] LABS: Basophils Percent Auto 0.2 % (0.2-1.2); Eosinophils Absolute Auto 0.1 K/mm3 (0-0.3); Eosinophils Percent Auto 0.8 % (0-4.4); Hematocrit 28.1 % (42.0-52.0); Hemoglobin 9.2 g/dL (14.0-18.0); Immature Granulocyte Absolute 0.03 K/mm3 (0.00-0.031); Immature Granulocyte Percent A 0.4 % (0-0.5); Lymphocytes Absolute Auto 1.61 K/mm3 (0.9-3.2); Lymphocytes Percent Auto 19.5 % (18.3-44.2); Mean Corpuscular HGB Conc 32.7 g/dl (32-36); Mean Corpuscular Hemoglobin 30.4 pg (26-34); Mean Corpuscular Volume 92.7 fl (80-100); Mean Platelet Volume 10.4 fl (7.4-10.4); Monocytes Absolute Auto 1.3 K/mm3 (0.1-0.6); Monocytes Percent Auto 15.8 % (2.6-8.5); Neutrophils Absolute Auto 5.2 K/mm3 (1.3-6.7); Neutrophils Percent Auto 63.3 % (45.5-73.1); Platelet Count Result 307 k/mm3 (150-375); Red Blood Count 3.03 M/mm3 (4.6-6.20); Red Cell Distribution Width 15.7 % (11.5-14.5); White Blood Count 8.3 K/mm3 (4.5-10.0)
[2019-11-23 05:41] LABS: Blood Urea Nitrogen 29 mg/dL (9-20); Calcium 8.9 mg/dL (8.4-10.2); Carbon Dioxide 30 mmol/L (22-30); Chloride 97 mmol/L (98-107); Estimated CRCL calculation 67 ml/min; Estimated Glomerular Filt Rate 60; Glucose 94 mg/dL (75-110); Magnesium 1.7 mg/dL (1.6-2.3); Potassium 3.9 mmol/L (3.4-5.0); Sodium 133 mmol/L (137-145)
[2019-11-23] MEDS: TRAMADOL HCL 50 MG TABLET PO ×2 (08:02→18:53)
[2019-11-23] MEDS: SOTALOL HCL 80 MG TABLET PO ×2 (08:04→20:44)
[2019-11-23] MEDS: GABAPENTIN 100 MG CAPSULE PO ×3 (08:04→20:36)
[2019-11-23] MEDS: PANTOPRAZOLE 40 MG TABLET PO (08:04)
[2019-11-23] MEDS: busPIRone HCL 10 MG TABLET PO ×2 (08:04→20:37)
[2019-11-23] MEDS: carvediloL 12.5 MG TABLET PO ×2 (08:05→20:36)
[2019-11-23] MEDS: FUROSEMIDE 20 MG TABLET PO ×2 (08:06→20:39)
[2019-11-23] MEDS: DULOXETINE HCL 30 MG CAPSULE.DR 90 MG PO (08:06)
[2019-11-23] MEDS: ASPIRIN 81 MG ENTERIC TABLET PO (08:06)
[2019-11-23] MEDS: ESCITALOPRAM OXALATE 10 MG TABLET PO (08:09)
[2019-11-23] MEDS: polyethylene glycoL 3350 17 GM POWD.PACK PO ×2 (08:10→18:53)
[2019-11-23] MEDS: TAMSULOSIN HCL 0.4 MG CAPSULE PO (08:11)
--- NOTE | 2019-11-23 10:37 | PM.IMPN ---
Progress Note: A&P Assessment and Plan (1) Sepsis: Qualifiers: Sepsis acute organ dysfunction status: unspecified Sepsis type: sepsis due to unspecified organism Qualified Code(s): A41.9 - Sepsis, unspecified organism Code(s): A41.9 - Sepsis, unspecified organism Status: Acute Assessment and Plan: Criteria met on admission. Result of pneumonia. Remains on IV vancomycin, ceftriaxone and azithromycin. Currently without fever and on room air. Telemetry reviewed on 11/23/2019 with sinus rhythm. Will transfer to medical floor as improving. Continue PT/OT. Anticipate will need SNF at discharge. (2) Pneumonia: Qualifiers: Laterality: bilateral Lung location: lower lobe of lung Pneumonia type: due to unspecified organism Qualified Code(s): J18.9 - Pneumonia, unspecified organism Code(s): J18.9 - Pneumonia, unspecified organism Status: Acute Assessment and Plan: Chest x-ray on admission with diffuse lung disease. Follow up chest x-ray on 11/23/2019 with unchanged mild opacities in bilateral lower lung zones. Clinically appears improved. Will continue IV vancomycin and ceftriaxone. On room air. Will monitor. (3) Acute on chronic kidney failure: Qualifiers: Acute renal failure type: unspecified Chronic kidney disease stage: stage 3 (moderate) Qualified Code(s): N17.9 - Acute kidney failure, unspecified; N18.3 - Chronic kidney disease, stage 3 (moderate) Code(s): N17.9 - Acute kidney failure, unspecified; N18.9 - Chronic kidney disease, unspecified Status: Acute Assessment and Plan: Creatinine elevated on admission but now improved to 1.20 today. No longer on IV fluids. Will monitor. (4) Generalized weakness: Code(s): R53.1 - Weakness Status: Acute Assessment and Plan: Suspect this is related to the scheduled morphine and pneumonia. His spinal stenosis may also be contributing to his weakness. Severe MR noted by [facility] last year also could be causing the weakness as well. Continue PT/OT. Pain medications adjusted. Anticipate need for SNF as noted above. (5) Suspected 2019 novel coronavirus infection: Code(s): R68.89 - Other general symptoms and signs Status: Acute Assessment and Plan: SARS-CoV-2 RNA ordered out of ER and negative. D-Dimer was positive and initally felt related to COVID. Bilateral lower extremity venous Dopplers negative. V/Q scan low probability. (6) Renal mass: Code(s): N28.89 - Other specified disorders of kidney and ureter Status: Acute Assessment and Plan: Patient with know renal mass concerning for renal cell cancer. This has been noted back in 2017 but slow growing. Will need follow-up as outpatient. (7) CHF (congestive heart failure): Qualifiers: Heart failure chronicity: chronic Heart failure type: systolic Qualified Code(s): I50.22 - Chronic systolic (congestive) heart failure Code(s): I50.9 - Heart failure, unspecified Status: Acute Assessment and Plan: Echocardiogram in February 2019 with EF 40-45%. New echocardiogram with EF 55-60%. Some hypokinesis of inferior segment. CXR as mentioned above. Continue Coreg and Lasix. Resume lisinopril in a.m.. Will monitor. (8) Atrial fibrillation: Qualifiers: Atrial fibrillation type: paroxysmal Qualified Code(s): I48.0 - Paroxysmal atrial fibrillation Code(s): I48.91 - Unspecified atrial fibrillation Status: Acute Assessment and Plan: Current telemetry with sinus rhythm. Continue sotalol and Coreg. No longer on Xarelto. Will monitor. (9) DVT prophylaxis: Code(s): Z29.9 - Encounter for prophylactic measures, unspecified Status: Acute Assessment and Plan: Lovenox. Time Spent With Patient Time with patient: 15 - 25 minutes Subjective Date/time seen: 11/23/19 10:37 Interval history: Date of Service: 11/22
[2019-11-23] MEDS: ENOXAPARIN 40 MG/0.4 ML SYRINGE SUB-Q (10:59)
[2019-11-23] MEDS: TOLNAFTATE 1% POWDER 45 GM BTL 1 APPLIC TOPICAL ×2 (12:30→20:45)
[2019-11-23] MEDS: ALPRAZOLAM 0.5 MG TABLET PO (12:31)
--- NOTE | 2019-11-23 13:56 | PC.NURSE ---
1030- status changed to med/surg status; 1350- report given to Angelica RN - pt transferred to room [id number] bed accompanied by staff
--- NOTE | 2019-11-23 14:00 | PC.NURSE ---
Transfer received from IMU. Report received from BASIL Ch.
--- NOTE | 2019-11-23 16:45 | PC.NURSE ---
Call to pharmacy to request 1700 meds. Meds will be administered when delivered from pharmacy.
[2019-11-23] MEDS: TRAZODONE HCL 50 MG TABLET 200 MG PO (20:39)
[2019-11-24] VITALS (13 sets, daily range): BP systolic 103–130; BP diastolic 53–78; PULSE 70–98; RESP 16–22; TEMP 36.3–37.7; O2SAT 91–100; BMI 10.0
[2019-11-24 07:00] LABS: Blood Urea Nitrogen 27 mg/dL (9-20); Carbon Dioxide 29 mmol/L (22-30); Chloride 97 mmol/L (98-107); Estimated CRCL calculation 67 ml/min; Estimated Glomerular Filt Rate 60; Glucose 103 mg/dL (75-110); Magnesium 1.8 mg/dL (1.6-2.3); Sodium 134 mmol/L (137-145)
[2019-11-24] MEDS: ALPRAZOLAM 0.5 MG TABLET PO ×2 (07:00→17:33)
[2019-11-24] MEDS: ENOXAPARIN 40 MG/0.4 ML SYRINGE SUB-Q (08:57)
[2019-11-24] MEDS: TOLNAFTATE 1% POWDER 45 GM BTL 1 APPLIC TOPICAL ×2 (09:02→20:28)
[2019-11-24] MEDS: lisinopriL 5 MG TABLET PO (09:02)
[2019-11-24] MEDS: PANTOPRAZOLE 40 MG TABLET PO (09:03)
[2019-11-24] MEDS: DULOXETINE HCL 30 MG CAPSULE.DR 90 MG PO (09:03)
[2019-11-24] MEDS: ESCITALOPRAM OXALATE 10 MG TABLET PO (09:03)
[2019-11-24] MEDS: ASPIRIN 81 MG ENTERIC TABLET PO (09:03)
[2019-11-24] MEDS: TAMSULOSIN HCL 0.4 MG CAPSULE PO (09:04)
[2019-11-24] MEDS: carvediloL 12.5 MG TABLET PO ×2 (09:04→20:38)
[2019-11-24] MEDS: SOTALOL HCL 80 MG TABLET PO ×2 (09:05→16:40)
[2019-11-24] MEDS: FUROSEMIDE 20 MG TABLET PO (09:05)
[2019-11-24] MEDS: GABAPENTIN 100 MG CAPSULE PO ×3 (09:05→16:35)
[2019-11-24] MEDS: busPIRone HCL 10 MG TABLET PO ×2 (09:06→20:27)
[2019-11-24] MEDS: polyethylene glycoL 3350 17 GM POWD.PACK PO (09:06)
--- NOTE | 2019-11-24 15:31 | PM.IMPN ---
Progress Note: A&P Assessment and Plan (1) Sepsis: Qualifiers: Sepsis acute organ dysfunction status: unspecified Sepsis type: sepsis due to unspecified organism Qualified Code(s): A41.9 - Sepsis, unspecified organism Code(s): A41.9 - Sepsis, unspecified organism Status: Acute Assessment and Plan: Criteria met on admission. Result of pneumonia. On IV vancomycin and ceftriaxone. Conmpleted azithromycin. Blood and urine cultures all final and negative. Continue PT/ OT. Has been accepted at [facility] for SNF. Will discharge today as stable. (2) Pneumonia: Qualifiers: Laterality: bilateral Lung location: lower lobe of lung Pneumonia type: due to unspecified organism Qualified Code(s): J18.9 - Pneumonia, unspecified organism Code(s): J18.9 - Pneumonia, unspecified organism Status: Acute Assessment and Plan: Chest x-ray on admission with diffuse lung disease. Follow up chest x-ray on 11/23/2019 with unchanged mild opacities in bilateral lower lung zones. Clinically now improved. Has been on IV antibiotics since 11/18/2019. Remaining on room air. Will not continue antibiotics at nursing facility as he has had 7 days IV here and clinically improved. (3) Acute on chronic kidney failure: Qualifiers: Acute renal failure type: unspecified Chronic kidney disease stage: stage 3 (moderate) Qualified Code(s): N17.9 - Acute kidney failure, unspecified; N18.3 - Chronic kidney disease, stage 3 (moderate) Code(s): N17.9 - Acute kidney failure, unspecified; N18.9 - Chronic kidney disease, unspecified Status: Acute Assessment and Plan: Creatinine elevated on admission but now improved and stable at 1.20 again today. No longer on IV fluids. Can follow at SNF. (4) Generalized weakness: Code(s): R53.1 - Weakness Status: Acute Assessment and Plan: Suspect this is related to the scheduled morphine and pneumonia. His spinal stenosis may also be contributing to his weakness. Severe MR noted by [facility] last year also could be causing the weakness as well. Continue PT/OT. Pain medications adjusted. Plan to discharge to [facility] as noted above. (5) Suspected 2019 novel coronavirus infection: Code(s): R68.89 - Other general symptoms and signs Status: Ruled-out Assessment and Plan: SARS-CoV-2 RNA ordered out of ER and negative. D-Dimer was positive and initally felt related to COVID. Bilateral lower extremity venous Dopplers negative. V/Q scan low probability. (6) Renal mass: Code(s): N28.89 - Other specified disorders of kidney and ureter Status: Acute Assessment and Plan: Patient with known renal mass concerning for renal cell cancer. This has been noted back in 2017 but slow growing. Will need follow-up as outpatient. (7) CHF (congestive heart failure): Qualifiers: Heart failure type: systolic Heart failure chronicity: chronic Qualified Code(s): I50.22 - Chronic systolic (congestive) heart failure Code(s): I50.9 - Heart failure, unspecified Status: Acute Assessment and Plan: Echocardiogram in February 2019 with EF 40-45%. New echocardiogram with EF 55-60%. Some hypokinesis of inferior segment. CXR as mentioned above. Currently stable. Continue Coreg, lisinopril and Lasix. (8) Atrial fibrillation: Qualifiers: Atrial fibrillation type: paroxysmal Qualified Code(s): I48.0 - Paroxysmal atrial fibrillation Code(s): I48.91 - Unspecified atrial fibrillation Status: Acute Assessment and Plan: Remains in sinus rhythm. Continue sotalol and Coreg. No longer on Xarelto. (9) DVT prophylaxis: Code(s): Z29.9 - Encounter for prophylactic measures, unspecified Status: Acute Assessment and Plan: Lovenox. Time Spent With Patient Time with patient: 15 - 25 minutes Subjective Date/time seen: 11/24/19
--- NOTE | 2019-11-24 17:43 | PM.DS ---
DS: Diagnosis Admitting Diagnosis Admitting Diagnosis: Sepsis, unspecified organism Discharge Diagnosis (1) Sepsis: Qualifiers: Sepsis acute organ dysfunction status: unspecified Sepsis type: sepsis due to unspecified organism Qualified Code(s): A41.9 - Sepsis, unspecified organism Code(s): A41.9 - Sepsis, unspecified organism Status: Acute (2) Pneumonia: Qualifiers: Laterality: bilateral Lung location: lower lobe of lung Pneumonia type: due to unspecified organism Qualified Code(s): J18.9 - Pneumonia, unspecified organism Code(s): J18.9 - Pneumonia, unspecified organism Status: Acute (3) Acute on chronic kidney failure: Qualifiers: Acute renal failure type: unspecified Chronic kidney disease stage: stage 3 (moderate) Qualified Code(s): N17.9 - Acute kidney failure, unspecified; N18.3 - Chronic kidney disease, stage 3 (moderate) Code(s): N17.9 - Acute kidney failure, unspecified; N18.9 - Chronic kidney disease, unspecified Status: Acute (4) Generalized weakness: Code(s): R53.1 - Weakness Status: Acute (5) Suspected 2019 novel coronavirus infection: Code(s): R68.89 - Other general symptoms and signs Status: Ruled-out (6) Renal mass: Code(s): N28.89 - Other specified disorders of kidney and ureter Status: Acute (7) CHF (congestive heart failure): Qualifiers: Heart failure chronicity: chronic Heart failure type: systolic Qualified Code(s): I50.22 - Chronic systolic (congestive) heart failure Code(s): I50.9 - Heart failure, unspecified Status: Acute (8) Atrial fibrillation: Qualifiers: Atrial fibrillation type: paroxysmal Qualified Code(s): I48.0 - Paroxysmal atrial fibrillation Code(s): I48.91 - Unspecified atrial fibrillation Status: Acute DS: Summary Hospital Course Reason for hospitalization: Weakness. Hospital Course: Date of Service of Discharge: November 24, 2019. History of Present Illness: Patient is a 68-year-old male with sleep apnea and coronary artery disease who presented to the emergency room with complaint of weakness. Patient also reports having chest pressure off and on for 1 hour along with chills the day before presentation. No radiation of pain or shortness of breath. No recorded fever. He did notice dizziness in addition to weakness. Reports feeling confused although oriented. No abdominal pain or diarrhea. No urinary symptoms. No exposure to COVID to his knowledge. Patient reports getting up to the bathroom on the morning of presentation. As he tried to rise, he slid to the floor was unable to get up. He was able to crawl on the floor until EMS was contacted and subsequently brought into the emergency room. In the emergency room, he was noted to be hypotensive with low-grade temperature of 100.8?. Chest x-ray with diffuse lung disease. Of note, recently patient was started on morphine scheduled. Given his findings, COVID-19 testing was initiated patient was admitted for further evaluation and treatment. Course in Hospital: Patient was initially admitted to the IMU with isolation until COVID-19 testing was negative. He was started on IV azithromycin and ceftriaxone for pneumonia. Eventually IV vancomycin was added as he was still having some fevers but this resolved prior to discharge. Azithromycin was changed from IV to oral formulation prior to completion of that treatment. Blood cultures were performed and negative. Urine culture was negative. Respiratory status gradually improved with patient having no cough or shortness of breath by discharge. Lungs were clear. Patient was not requiring oxygen at discharge. He was actually able to transfer from the IMU to the medical floor on 11/23/2019 and remained there for the duration of his stay. He was also noted to have acute kidney injury which improved with rehydration. He does
[2019-11-24] MEDS: TRAMADOL HCL 50 MG TABLET PO (19:37)
[2019-11-24] MEDS: TRAZODONE HCL 50 MG TABLET 200 MG PO (20:27)
[2019-11-24] MEDS: ACETAMINOPHEN 325 MG TABLET 650 MG PO (20:37)
== END 2019-11-24 21:35 | DRG 871 ==
LOC: ANHED 09:41 → ANHICU 11-19 14:38 → ANHIMU 11-19 23:18 → ANH3MED 11-23 15:17 → ANHICU 11-26 07:59 → ANHIMU 11-26 07:59
PROVIDERS: Internal Medicine; Admitting Provider Internal Medicine; Emergency Provider Family Medicine; PCP Internal Medicine; Visit Provider Hospitalist
DX: A41.9 Sepsis, unspecified organism (principal); J18.9 Pneumonia, unspecified organism; I13.0 Hypertensive heart and chronic kidney disease with heart failure and stage 1 through stage 4 chronic kidney disease, or unspecified chronic kidney disease; I50.22 Chronic systolic (congestive) heart failure; I48.20 Chronic atrial fibrillation, unspecified; N17.9 Acute kidney failure, unspecified; N18.3 Chronic kidney disease, stage 3 (moderate); Z20.828 Contact with and (suspected) exposure to other viral communicable diseases; I25.10 Atherosclerotic heart disease of native coronary artery without angina pectoris; F41.8 Other specified anxiety disorders; G89.4 Chronic pain syndrome; G47.33 Obstructive sleep apnea (adult) (pediatric); M48.00 Spinal stenosis, site unspecified; E78.5 Hyperlipidemia, unspecified; N28.89 Other specified disorders of kidney and ureter; Z95.2 Presence of prosthetic heart valve; Z96.653 Presence of artificial knee joint, bilateral; Z95.1 Presence of aortocoronary bypass graft; Z90.49 Acquired absence of other specified parts of digestive tract; E66.01 Morbid (severe) obesity due to excess calories; Z68.38 Body mass index [BMI] 38.0-38.9, adult
CPT/HCPCS: 36415; 36600; 51701; 71045; 73600; 76775; 78580; 80048; 80053; 81001; 82375; 82550; 82570; 82728; 82805; 83050; 83605; 83615; 83735; 84100; 84155; 84156; 84165; 84166; 84300; 85025; 85027; 85380; 85999; 86021; 86038; 86140; 86160; 86162; 87040; 87086; 87088; 87635; 87804; 93005; 93970; 96361; 96365; 96375; 97110; 97116; 97161; 97165; 97530; 97535; 99285; A9270; A9540; C8929; C9113; J0456; J0696; J1650; J2270; J2405; J3370; J3475; J7030; Q9957; U0003

== ENCOUNTER 2019-12-20 14:31 | Outpatient (CLI) | payer MEDICARE, SELFPAY ==
--- NOTE | ~2019-12-20 | CT_ITS ---
EXAMINATION: CT wrist RT wo con DATE: 12/20/2019 15:22 INDICATION: Right wrist pain TECHNIQUE: High resolution computed tomography (CT) of the right wrist was performed without intraven ous contrast. Additional sagittal and coronal reconstructions were performed. Automated exposure cont rol and iterative reconstruction technique were employed. The dose-length product was 286.66 mGy-cm. COMPARISON: None FINDINGS: Bone alignment is normal. No fracture. There is chondrocalcinosis and dystrophic calcifications in th e soft tissues surrounding the joints of the wrist and carpus. There are several small juxta articula r erosions with overhanging edges including at the distal pole of the scaphoid, at the triquetrum, at the radial styloid process and at the base of the fourth and fifth metacarpals. Mild polyarticular o steoarthritis at the wrist, triscaphe and first and second carpal metacarpal joints. Subarticular lyt ic lesions at the second carpometacarpal joint which could represent osteoarthritis related degenerat norma subarticular cysts or additional erosions. IMPRESSION: 1. Several scattered small juxta articular erosions along with large amount of dystrophic calcificati on in the soft tissues about the carpus which is strongly suggestive of a crystalline arthropathy suc h as gout or calcium pyrophosphate deposition (CPPD) disease. Reviewed, dictated and finalized at location A. IMPRESSION: 1. Several scattered small juxta articular erosions along with large amount of dystrophic calcification in the soft tissues about the carpus which is strongly suggestive of a crystalline arthropathy such as gout or calcium pyrophosphate deposition (CPPD) disease.
[2019-12-20 15:37] LABS: Basophils Percent Auto 0.5 % (0.2-1.2); Eosinophils Absolute Auto 0.2 K/mm3 (0-0.3); Eosinophils Percent Auto 2.5 % (0-4.4); Hematocrit 35.8 % (42.0-52.0); Immature Granulocyte Absolute 0.01 K/mm3 (0.00-0.031); Immature Granulocyte Percent A 0.1 % (0-0.5); Lymphocytes Percent Auto 27.5 % (18.3-44.2); Mean Corpuscular HGB Conc 30.7 g/dl (32-36); Mean Corpuscular Hemoglobin 28.5 pg (26-34); Mean Corpuscular Volume 92.7 fl (80-100); Mean Platelet Volume 9.7 fl (7.4-10.4); Monocytes Absolute Auto 0.9 K/mm3 (0.1-0.6); Monocytes Percent Auto 10.7 % (2.6-8.5); Neutrophils Absolute Auto 4.7 K/mm3 (1.3-6.7); Neutrophils Percent Auto 58.7 % (45.5-73.1); Platelet Count Result 408 k/mm3 (150-375); Red Blood Count 3.86 M/mm3 (4.6-6.20); Red Cell Distribution Width 16.9 % (11.5-14.5)
[2019-12-20 15:51] LABS: Alanine Aminotransferase 18 U/L (4-50); Albumin Level 3.9 g/dL (3.5-5.1); Alkaline Phosphatase 114 U/L (38-126); Aspartate Amino Transferase 22 U/L (17-59); Bilirubin,Total 0.4 mg/dL (0.2-1.3); Blood Urea Nitrogen 24 mg/dL (9-20); Calcium 9.3 mg/dL (8.4-10.2); Carbon Dioxide 33 mmol/L (22-30); Chloride 102 mmol/L (98-107); Estimated Glomerular Filt Rate 55; Glucose 67 mg/dL (75-110); Potassium 4.4 mmol/L (3.4-5.0); Sodium 139 mmol/L (137-145)
== END 2019-12-20 14:32 | disposition home or self-care (01) ==
PROVIDERS: PCP Internal Medicine; Visit Provider Internal Medicine
DX: D64.9 Anemia, unspecified (principal); M25.531 Pain in right wrist; I10 Essential (primary) hypertension; Z79.899 Other long term (current) drug therapy; M79.89 Other specified soft tissue disorders
CPT/HCPCS: 36415; 73200; 80053; 85025

== ENCOUNTER 2020-01-17 15:33 | Outpatient (CLI) | payer MEDICARE, SELFPAY ==
--- NOTE | ~2020-01-17 | XR_ITS ---
EXAMINATION: XR foot RT min 3V DATE: 01/17/2020 16:28 INDICATION: 10 months of right foot pain TECHNIQUE: Dorsoplantar, two oblique and lateral views of the right foot were obtained. COMPARISON: 01/28/2019 FINDINGS: Mild varus angulation at the fifth metatarsophalangeal joint. Third hammertoes deformity and clot fou rth toe. Second toe crosses over the dorsum of the tip of the great toe. No acute fracture. [place] d fracture deformity versus sessile osteochondroma at the posterior right fibular diaphysis. Polyarti cular osteoarthritis, moderate severity at the first tarsal metatarsal joint and mild at many of the remaining tarsal metatarsal, metatarsophalangeal and interphalangeal joints. Moderate-sized plantar c alcaneal spur. IMPRESSION: 1. By articular osteoarthritis in the right mid and forefoot. No acute osseous abnormality. Reviewed, dictated and finalized at location A.
--- NOTE | ~2020-01-17 | XR_ITS ---
EXAMINATION: XR foot LT min 3V DATE: 01/17/2020 16:28 INDICATION: 10 month of left foot pain TECHNIQUE: Dorsoplantar, two oblique and lateral views of the left foot were obtained. COMPARISON: None. FINDINGS: Mild varus angulation at the fifth metatarsophalangeal joint. Alignment is otherwise normal. No acute fracture. The articular osteoarthritis, moderate severity at the first tarsal metatarsal joint and m ild at multiple tarsometatarsal, metatarsophalangeal and interphalangeal joints. Small plantar calcan eal spur. Diffuse mild soft tissue swelling over the dorsum of the fore and midfoot. No left ankle eddi int effusion. IMPRESSION: 1. Polyarticular osteoarthritis in the mid and forefoot. No acute osseous abnormality. Reviewed, dictated and finalized at location A. IMPRESSION: 1. Polyarticular osteoarthritis in the mid and forefoot. No acute osseous abnor mality.
== END 2020-01-17 15:34 | disposition home or self-care (01) ==
PROVIDERS: PCP Internal Medicine; Visit Provider Internal Medicine
DX: M19.071 Primary osteoarthritis, right ankle and foot (principal); M19.072 Primary osteoarthritis, left ankle and foot
CPT/HCPCS: 73630

== ENCOUNTER 2020-01-31 15:31 | Outpatient (CLI) | payer MEDICARE, SELFPAY ==
[2020-01-31 16:17] LABS: Basophils Absolute Auto 0.1 K/mm3 (0.0-0.1); Basophils Percent Auto 0.7 % (0.2-1.2); Eosinophils Absolute Auto 0.1 K/mm3 (0-0.3); Eosinophils Percent Auto 1.5 % (0-4.4); Hematocrit 41.9 % (42.0-52.0); Hemoglobin 13.4 g/dL (14.0-18.0); Immature Granulocyte Absolute 0.02 K/mm3 (0.00-0.031); Immature Granulocyte Percent A 0.3 % (0-0.5); Lymphocytes Absolute Auto 2.19 K/mm3 (0.9-3.2); Lymphocytes Percent Auto 31.9 % (18.3-44.2); Mean Corpuscular Hemoglobin 28.7 pg (26-34); Mean Corpuscular Volume 89.7 fl (80-100); Mean Platelet Volume 9.7 fl (7.4-10.4); Monocytes Absolute Auto 0.7 K/mm3 (0.1-0.6); Monocytes Percent Auto 10.8 % (2.6-8.5); Neutrophils Absolute Auto 3.8 K/mm3 (1.3-6.7); Neutrophils Percent Auto 54.8 % (45.5-73.1); Platelet Count Result 294 k/mm3 (150-375); Red Blood Count 4.67 M/mm3 (4.6-6.20); Red Cell Distribution Width 18.3 % (11.5-14.5); White Blood Count 6.9 K/mm3 (4.5-10.0)
[2020-01-31 16:28] LABS: Partial Thromboplastin Time 31.1 SECONDS (22.3-36.8)
== END 2020-01-31 15:32 | disposition home or self-care (01) ==
PROVIDERS: PCP Internal Medicine
DX: N28.89 Other specified disorders of kidney and ureter (principal); Z01.818 Encounter for other preprocedural examination
CPT/HCPCS: 36415; 85025; 85610; 85730

== ENCOUNTER 2020-04-01 17:11 | Inpatient (IN) | payer MEDICARE, SELFPAY ==
[2020-04-01] VITALS (9 sets, daily range): BP systolic 139–148; BP diastolic 85–99; PULSE 93–105; RESP 20–30; TEMP 36.9–38.2; O2SAT 90–96; BMI 40.0
--- NOTE | ~2020-04-01 | XR_ITS ---
EXAMINATION: XR chest 1V portable 04/01/2020 18:14 INDICATION: Weakness. Dyspnea. PROCEDURE: AP portable chest COMPARISON: Comparison to multiple prior studies sequentially, with oldest reviewed study dated 11/19. FINDINGS: The lungs are clear. The lungs are hyperinflated which is consistent with, but not diagnost ic of chronic obstructive pulmonary disease. Status post median sternotomy for CABG. The cardiomedias tinal silhouette is within normal limits. There are no pleural effusions. There is no pneumothorax suspected. IMPRESSION: 1: NO ACUTE CARDIOPULMONARY DISEASE. Reviewed, dictated and finalized at location A.
--- NOTE | ~2020-04-01 | US_ITS ---
EXAMINATION: US venous doppler [facility] DATE: 04/02/2020 12:30 INDICATION: Lower limb pain and swelling TECHNIQUE: Grayscale ultrasound images without and with compression and Doppler ultrasound images of the bilateral lower extremity veins were obtained. COMPARISON: None. FINDINGS: The visualized portions of right common femoral vein, profunda (deep) femoral vein, femoral vein, pop liteal vein, posterior tibial veins, peroneal veins, gastrocnemius vein and greater saphenous vein ou tflow are patent. The visualized portions of left common femoral vein, profunda femoral vein, femoral vein, popliteal v ein, posterior tibial veins, peroneal veins, gastrocnemius vein and greater saphenous vein outflow ar e patent. IMPRESSION: 1. No deep venous thrombosis in either lower limb. Reviewed, dictated and finalized at location A.
--- NOTE | ~2020-04-01 | CT_ITS ---
EXAMINATION: CTA chest PE protocol DATE: 04/01/2020 20:25 CDT INDICATION: Possible pneumonia.. Shortness of breath. Weakness. TECHNIQUE: Computed tomographic angiography (CTA) of the chest was performed with 100 mL Omnipaque-35 0 intravenous contrast. The dose-length product was 946.20 mGy-cm. Maximum intensity projection 3D-re constructions of the aorta and other arteries were constructed by the technologist on a separate work station. Automated exposure control and iterative reconstruction technique were employed. COMPARISON: CT dated 02/26/2019 FINDINGS: Moderate atherosclerosis. Cardiomegaly. No thoracic lymphadenopathy. No significant pleural or pericardial effusion. There is subcutaneous gas in the anterior wall of the abdomen and chest. Th ere are cholecystectomy clips. Study is limited for evaluation of pulmonary embolism no large central pulmonary embolism. There is patchy right upper and lower lobe airspace disease, compatible with pne umonia. No pneumothorax. No endobronchial lesion. Mild thoracic spondylosis with accentuated kyphosis . Status post median sternotomy for CABG. IMPRESSION: 1. No large central pulmonary embolism. Evaluation for peripheral pulmonary arteries limited by contr ast bolus timing. 2: Patchy right upper and lower lobe airspace disease, compatible with pneumonia. 3: Right anterior abdominal and chest wall of uncertain origin. 4: Cardiomegaly. Reviewed, dictated and finalized at location A. IMPRESSION: 1. No large central pulmonary embolism. Evaluation for peripheral pulmonary art eries limited by contrast bolus timing. 2: Patchy right upper and lower lobe airspace disease, compatible with pneumoni a. 3: Right anterior abdominal and chest wall of uncertain origin. 4: Cardiomegaly.
--- NOTE | ~2020-04-01 | CT_ITS ---
EXAMINATION: CT brain wo con DATE: 04/01/2020 20:13 INDICATION: Weakness. TECHNIQUE: Computed tomography (CT) of the head was performed without intravenous contrast. The dose- length product was 946.20 mGy-cm. The mA was adjusted according to patient size. Iterative reconstruc tion technique was employed. COMPARISON: CT dated 11/10/2018 FINDINGS: Chronic right lacunar infarction of the internal capsule. Mild atrophy. There are scattered mild periventricular and subcortical white matter changes, most likely related to small vessel ische brittany disease (microangiopathy). No acute intracranial hemorrhage, infarction, mass or mass effect. Bas ilar cisterns are patent. There is intracranial atherosclerosis. Paranasal sinuses and mastoids are p neumatized. IMPRESSION: 1. No acute intracranial abnormality. 2: Chronic right lacunar infarction. 3: Chronic age-related findings. Reviewed, dictated and finalized at location A.
--- NOTE | 2020-04-01 17:43 | ECG_ITS ---
Measurements Intervals Benedict Rate: 86 P: -74 AL: 143 QRS: -22 QRSD: 105 T: 36 QT: 377 QTc: 451 Interpretive Statements SINUS OR ECTOPIC ATRIAL RHYTHM INCOMPLETE RIGHT BUNDLE BRANCH BLOCK LEFT VENTRICULAR HYPERTROPHY AND ST-T CHANGE INFERIOR INFARCT, AGE INDETERMINATE BORDERLINE ST-T WAVE ABNORMALITY- ANTEROLAT/HIGH LAT LEADS BASELINE WANDER- V6 ABNORMAL ECG Electronically Signed On 04-02-2020 7:25:52 CDT by Александр Covarrubias D.O.
[2020-04-01 17:52] LABS: Basophils Absolute Auto 0.1 K/mm3 (0.0-0.1); Basophils Percent Auto 1.5 % (0.2-1.2); Eosinophils Absolute Auto 0.2 K/mm3 (0-0.3); Eosinophils Percent Auto 3.5 % (0-4.4); Hematocrit 39.5 % (42.0-52.0); Hemoglobin 12.9 g/dL (14.0-18.0); Immature Granulocyte Absolute 0.02 K/mm3 (0.00-0.031); Immature Granulocyte Percent A 0.4 % (0-0.5); Lymphocytes Absolute Auto 0.89 K/mm3 (0.9-3.2); Lymphocytes Percent Auto 16.4 % (18.3-44.2); Mean Corpuscular HGB Conc 32.7 g/dl (32-36); Mean Corpuscular Hemoglobin 29.9 pg (26-34); Mean Corpuscular Volume 91.4 fl (80-100); Mean Platelet Volume 10.2 fl (7.4-10.4); Monocytes Percent Auto 18.3 % (2.6-8.5); Neutrophils Absolute Auto 3.3 K/mm3 (1.3-6.7); Neutrophils Percent Auto 59.9 % (45.5-73.1); Platelet Count Result 328 k/mm3 (150-375); Red Blood Count 4.32 M/mm3 (4.6-6.20); Red Cell Distribution Width 16.1 % (11.5-14.5); White Blood Count 5.4 K/mm3 (4.5-10.0)
[2020-04-01 18:03] LABS: Alanine Aminotransferase 23 U/L (4-50); Albumin Level 4.3 g/dL (3.5-5.1); Alkaline Phosphatase 106 U/L (38-126); Anion Gap 9 mmol/L (8-16); Aspartate Amino Transferase 33 U/L (17-59); Bilirubin,Total 0.5 mg/dL (0.2-1.3); Blood Urea Nitrogen 22 mg/dL (9-20); Calcium 9.1 mg/dL (8.4-10.2); Carbon Dioxide 25 mmol/L (22-30); Chloride 104 mmol/L (98-107); Estimated CRCL calculation 59 ml/min; Estimated Glomerular Filt Rate 50; Glucose 93 mg/dL (75-110); Sodium 138 mmol/L (137-145)
[2020-04-01 19:07] LABS: Add Urine Microscopic? YES; Appearance Urine Clear (Clear); Bilirubin Urine Negative (Negative); Blood Urine Negative (Negative); Color Urine Amber (Yellow); Glucose Urine UA Negative (Negative); Ketones Urine Negative (Negative); Leukocyte Esterase Ur Negative LEU/UL (Negative); Mucus Urine Rare /lpf; Nitrate Urine Negative (Negative); Protein Urine 1+ mg/dL (Negative); Specific Grav Ur 1.017 (1.001-1.035); Squamous Epithelial Cell Urine Rare /hpf (Few); Urobilinogen Urine Negative mg/dL (<2.0); WBC Urine 0-3 /hpf
--- NOTE | 2020-04-01 19:43 | ED.WEAKNESS ---
HPI - Weakness General Chief complaint: Weakness Stated complaint: covid + worsening weakness Time Seen by Provider: 04/01/20 19:00 Source: patient Mode of arrival: ambulatory Limitations: no limitations History of Present Illness HPI Narrative: This patient is a 69 year old male who presents for evaluation of weakness. He states he was diagnosed with COVID on Friday. He states at that time he did not have any symptoms but his thought she had it so they got tested. AFter his diagnosis he has developed progressive generalized weakness. He states he is working harder to get up and walk around. He denies cough, chest pain, abdominal pain, nausea, vomiting or diarrhea. He reports chronic shortness of breath. He also had a surgery 2 weeks ago to have lesions of RCC removed. He denies any worsening pain from the surgery. Related Data Home Medications Medication Instructions Recorded Confirmed aspirin [Aspir-81] 81 mg PO DAILY 11/18/19 04/01/20 buspirone 10 mg PO TID 11/18/19 04/01/20 duloxetine 90 mg PO DAILY 11/18/19 04/01/20 escitalopram oxalate [Lexapro] 10 mg PO DAILY 11/18/19 04/01/20 gabapentin 100 mg PO TID 11/18/19 04/01/20 nitroglycerin 0.4 mg SUBLINGUAL Q5-15M PRN 11/18/19 04/01/20 pantoprazole 40 mg PO DAILY 11/18/19 04/01/20 polyethylene glycol 3350 [Miralax] 17 g PO DAILY 11/18/19 04/01/20 ropinirole [Requip] 0.5 mg PO BID 11/18/19 04/01/20 sotalol 80 mg PO BID 11/18/19 04/01/20 tamsulosin 0.4 mg PO DAILY 11/18/19 04/01/20 trazodone 200 mg PO HS PRN 11/18/19 04/01/20 metoclopramide HCl 10 mg PO BID 04/01/20 04/01/20 metoclopramide HCl 10 mg PO BID PRN 04/01/20 04/01/20 oxycodone-acetaminophen [Percocet] 1 tablet PO Q6H PRN 04/01/20 04/01/20 Allergies Allergy/AdvReac Type Severity Reaction Status Date / Time [id number] Reductase AdvReac Muscle Pain Verified 04/01/20 17:44 Inhibitor Review of Systems Review of Systems: All systems reviewed & are unremarkable except as noted in HPI and below Constitutional: Constitutional: Denies chills, Denies fever(s) and Reports weakness ENT: Denies nasal congestion and Denies sore throat Cardiovascular: Cardiovascular: Denies chest pain Respiratory: Respiratory: Denies cough, Reports dyspnea and Denies wheezing Gastrointestinal: Gastrointestinal: Denies abdominal pain, Denies diarrhea, Denies nausea and Denies vomiting Genitourinary: Genitourinary: Denies hematuria and Denies oliguria Neurologic: Denies vertigo, Denies focal weakness and Denies numbness PMFSH Past Medical History Medical History Atrial fibrillation CAD (coronary artery disease) with 6 stents CHF (congestive heart failure) Echo in February 2019 EF 40-45% Chronic pain syndrome CKD (chronic kidney disease) stage 3, GFR 30-59 ml/min Depression with anxiety Hyperlipidemia Hypertension Mitral valve regurgitation CHI (obstructive sleep apnea) intolerant to CPAP Renal mass [place] to have Renal Cell CA Spinal stenosis Thoracic aortic aneurysm Surgical History Surgical History (System 11/22/19 @ 11:01 by Millie English) H/O mitral valve replacement [facility] in February 2019 showing severe MR History of knee replacement History of tonsillectomy and adenoidectomy History of total left knee replacement History of total right knee replacement Hx of CABG x3v in 2016 Hx of cholecystectomy Hx of hernia repair Hx of repair of right rotator cuff Hx of toe surgery Social History Social History (System 11/22/19 @ 11:01 by Millie English) Social History: Lifelong nonsmoker. Denies drug use. Drinks occasional alcholic beverage. Lives as home with his . 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 He is a full code. he nominates his to be the individual who would make decisions for him if he is unable Smoking status: Never smoker Alcohol intake: never Substance use: never Substanc
[2020-04-01] MEDS: SODIUM CHLORIDE 0.9% IV 500 ML 999 ML IV CONT (20:20)
[2020-04-01 21:27] LABS: Alveolar/Arterial O2 Gradient 54.4 mmHg; Base Excess ABG -0.3 mEq/l (+/-2.0); Carboxyhemoglobin 1.1 % THb (0-2.0); Fractional Inspired Oxygen 21 %; HCO3 ABG 22.6 mEq/l (22.0-26.0); Methemoglobin ABG 0.3 %THb (0-1.5); Oxygen Content ABG 17.3 %vol (16.0-22.0); Oxygen Saturation ABG 91.8 % (95.0-100.0); Oxyhemoglobin 89.3 % THb (90.0-100.0); PCO2 ABG 31.8 mmHg (35.0-45.0); PO2 ABG 57.3 mmHg (80.0-100.0); PO2 FiO2 Ratio Arterial Blood 2.73 %; Reduced Hemoglobin 9.3 %THb (0-5.0); Total Hemoglobin 13.8 g/dL (12.0-18.0); pH ABG 7.469 (7.350-7.450)
[2020-04-01 21:28] LABS: Device ROOM AIR; Modified Allen's Test Pass; Site Drawn LEFT RADIAL
[2020-04-01 22:09] LABS: CRP 2.4 mg/dL (<1.0); Lactate Dehydrogenase 488 U/L (313-618)
[2020-04-01] MEDS: DEXAMETHASONE 2 MG TABLET 6 MG PO (22:09)
--- NOTE | 2020-04-01 23:00 | ADMGEN ---
This patient, Emil Wallis, was admitted to 3 Med Surg Room 328-01. Patient/family oriented to hospital policies and general routines including ID bracelet, bed and alarms, visiting hours, pain management, procedures, bathroom and other care routines, personal items, smoking policy, room service/diet, and visiting hours. Valuables list has been completed. Information on how to activate the Rapid Response Team has been discussed. Patient/Family are encouraged to report perceived risks to care and to ask questions if they do not understand what they are told or what they should do.
[2020-04-01] MEDS: SOTALOL HCL 80 MG TABLET PO (23:50)
[2020-04-02] VITALS (10 sets, daily range): BP systolic 114–120; BP diastolic 67–105; PULSE 78–101; RESP 16–20; TEMP 36.2–36.9; O2SAT 92–96
[2020-04-02] MEDS: SOTALOL HCL 80 MG TABLET PO ×3 (00:27→20:39)
[2020-04-02] MEDS: carvediloL 12.5 MG TABLET PO ×3 (00:27→20:39)
[2020-04-02] MEDS: oxyCODONE/ACETAMINOPHEN 5-325 MG TABLET 1 TABLET PO ×2 (00:27→12:27)
[2020-04-02 07:04] LABS: Basophils Percent Auto 0.8 % (0.2-1.2); Hematocrit 38.2 % (42.0-52.0); Hemoglobin 12.2 g/dL (14.0-18.0); Immature Granulocyte Absolute 0.01 K/mm3 (0.00-0.031); Immature Granulocyte Percent A 0.3 % (0-0.5); Lymphocytes Absolute Auto 0.81 K/mm3 (0.9-3.2); Mean Corpuscular HGB Conc 31.9 g/dl (32-36); Mean Corpuscular Hemoglobin 29.5 pg (26-34); Mean Corpuscular Volume 92.5 fl (80-100); Mean Platelet Volume 10.1 fl (7.4-10.4); Monocytes Absolute Auto 0.2 K/mm3 (0.1-0.6); Monocytes Percent Auto 4.2 % (2.6-8.5); Neutrophils Absolute Auto 2.8 K/mm3 (1.3-6.7); Neutrophils Percent Auto 73.7 % (45.5-73.1); Platelet Count Result 316 k/mm3 (150-375); Red Blood Count 4.13 M/mm3 (4.6-6.20); Red Cell Distribution Width 16.2 % (11.5-14.5); White Blood Count 3.9 K/mm3 (4.5-10.0)
[2020-04-02 07:14] LABS: Alanine Aminotransferase 26 U/L (4-50); Albumin Level 4.2 g/dL (3.5-5.1); Alkaline Phosphatase 95 U/L (38-126); Anion Gap 10 mmol/L (8-16); Aspartate Amino Transferase 38 U/L (17-59); Bilirubin,Total 0.5 mg/dL (0.2-1.3); Blood Urea Nitrogen 21 mg/dL (9-20); Calcium 9.3 mg/dL (8.4-10.2); Carbon Dioxide 25 mmol/L (22-30); Chloride 103 mmol/L (98-107); Estimated CRCL calculation 58 ml/min; Estimated Glomerular Filt Rate 50; Glucose 153 mg/dL (75-110); Potassium 4.1 mmol/L (3.4-5.0); Sodium 138 mmol/L (137-145)
[2020-04-02] MEDS: DEXAMETHASONE 2 MG TABLET 6 MG PO (08:13)
[2020-04-02] MEDS: polyethylene glycoL 3350 17 GM POWD.PACK PO (08:13)
[2020-04-02] MEDS: PANTOPRAZOLE 40 MG TABLET PO (08:13)
[2020-04-02] MEDS: METOCLOPRAMIDE HCL 10 MG TABLET PO ×2 (08:13→17:14)
[2020-04-02] MEDS: FUROSEMIDE 40 MG TABLET PO (08:13)
[2020-04-02] MEDS: GABAPENTIN 100 MG CAPSULE PO ×3 (08:14→17:12)
[2020-04-02] MEDS: busPIRone HCL 10 MG TABLET PO ×3 (08:14→17:12)
[2020-04-02] MEDS: TAMSULOSIN HCL 0.4 MG CAPSULE PO (08:14)
[2020-04-02] MEDS: POTASSIUM CHLORIDE 20 MEQ TABLET.ER PO (08:14)
[2020-04-02] MEDS: rOPINIRole HCL 0.25 MG TABLET 0.5 MG PO ×2 (08:14→17:12)
[2020-04-02] MEDS: lisinopriL 5 MG TABLET PO (08:14)
[2020-04-02] MEDS: ASPIRIN 81 MG ENTERIC TABLET PO (08:15)
[2020-04-02] MEDS: ESCITALOPRAM OXALATE 10 MG TABLET PO (08:15)
[2020-04-02] MEDS: ONDANSETRON INJ 4 MG/2 ML VIAL IV PUSH (08:18)
--- NOTE | 2020-04-02 10:55 | PM.IMHP ---
H&P: HPI History of Present Illness Date/Time: 04/02/20 1100 Chief complaint: Weakness Narrative: Date of Service 04/02/20 The supervising physician for this history and physical is Dr. Acosta. Mr. Wallis is a pleasant 69yo M with history of coronary artery disease s/p coronary stents and CABG x2, CHF, atrial fibrillation, obstructive sleep apnea intolerant to CPAP, chronic kidney disease, hypertension, recently diagnosed renal cell carcinoma who presented to the ED for evaluation of generalized weakness. He describes his began feeling sick last week and they both got tested for COVID. He was asymptomatic at the time but he did test positive for COVID-19 on 03/31/20. The following day, yesterday, he noted that he began to feel very fatigued, weak all over, and having some shortness of breath with activity. He is also having nausea without vomiting. He denies any chest pain. ER documentation notes the patient was saturating 88% on room air and was then placed on 4 L nasal cannula. He does not use oxygen at home. Workup thus far includes a CTA chest which demonstrates no large central PE but evaluation of the peripheral pulmonary arteries is limited, cardiomegaly, patchy right upper and lower lobe airspace disease compatible with pneumonia. He was started on oral dexamethasone and admitted to the hospitalist service for further management of COVID-19 pneumonia. I suspect he will require at least a 2 midnight stay for treatment of same and other comorbidities. Review of Systems Review of Systems: Narrative: Patient's biggest concern is generalized weakness that began 2 days ago after tested positive for COVID. He reports some mild shortness of breath with activity. Denies chest pain. Reports nausea without vomiting. No diarrhea, constipation, hematochezia, melena, hematemesis. No dysuria or hematuria. No dizziness, lightheadedness, syncope. Twelve systems were reviewed with pertinent positives and negatives as per HPI. Except as documented, all other systems were reviewed and are negative. [facility] Past Medical History Medical History (Updated 04/02/20 @ 18:01 by Madelyn Cohen PA-C) Anxiety CAD (coronary artery disease) with 6 stents CHF (congestive heart failure) Echo in November 2019 EF 55-60%; improved from a previous echocardiogram in February 2019 demonstrating EF 40-45%. Chronic pain syndrome CKD (chronic kidney disease) stage 3, GFR 30-59 ml/min Depression with anxiety Hyperlipidemia Hypertension Mitral valve regurgitation CHI (obstructive sleep apnea) intolerant to CPAP Paroxysmal atrial fibrillation Cardioversion February 2019 Renal cell carcinoma Diagnosed by right renal mass biopsy 02/07/20. Right partial nephrectomy at [place] 03/14/20. Urologist is Dr. Israel at [facility]. Spinal stenosis Thoracic aortic aneurysm Surgical History Surgical History (Updated 04/02/20 @ 17:37 by Madelyn Cohen PA-C) H/O mitral valve replacement TORY in February 2019 showing severe MR History of knee replacement History of partial nephrectomy 03/14/20 right -secondary to renal cell carcinoma. History of tonsillectomy and adenoidectomy History of total left knee replacement History of total right knee replacement Hx of CABG History of CABG x2; most recent was 3 vessel in 2015 Hx of cholecystectomy Hx of hernia repair Hx of repair of right rotator cuff Hx of toe surgery Family History Family History Father Pancreatic cancer Father Family history of malignant neoplasm Mother Family history of malignant neoplasm Social History Social History (Updated 04/02/20 @ 17:39 by Madelyn Cohen PA-C) Social History: Mr. Wallis lives at home in [place] with his , Laverne. 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 Drinks occasional alcoholic beverage. Never smoker. No other drug use. He designates his , Laverne, to be his surrogate
[2020-04-02] MEDS: ENOXAPARIN 40 MG/0.4 ML SYRINGE SUB-Q ×2 (12:27→20:39)
[2020-04-02] MEDS: DULoxetine HCL 30 MG CAPSULE.DR 90 MG PO (12:29)
[2020-04-02] MEDS: REMDESIVIR 200 MG/NS 250 ML 200 MG/250 ML BAG 250 MG IVPB (13:47)
[2020-04-02] MEDS: diphenhydrAMINE HCl CAP 25 MG CAPSULE PO (21:36)
[2020-04-03] VITALS (9 sets, daily range): BP systolic 119–140; BP diastolic 76–94; PULSE 61–93; RESP 18–20; TEMP 36.3–36.7; O2SAT 92–97
[2020-04-03 05:24] LABS: Hematocrit 36.5 % (42.0-52.0); Hemoglobin 11.7 g/dL (14.0-18.0); Mean Corpuscular HGB Conc 32.1 g/dl (32-36); Mean Corpuscular Hemoglobin 29.8 pg (26-34); Mean Corpuscular Volume 92.9 fl (80-100); Mean Platelet Volume 10.2 fl (7.4-10.4); Platelet Count Result 296 k/mm3 (150-375); Red Blood Count 3.93 M/mm3 (4.6-6.20); Red Cell Distribution Width 16.6 % (11.5-14.5); White Blood Count 4.9 K/mm3 (4.5-10.0)
[2020-04-03 05:38] LABS: Potassium 4.1 mmol/L (3.4-5.0)
[2020-04-03 05:39] LABS: Alanine Aminotransferase 22 U/L (4-50)
[2020-04-03 05:58] LABS: Band Neutrophils Percent 3 % (0-6); Lymphocytes Absolute Manual 1.51 K/mm3 (1.1-4.5); Monocytes Absolute Manual 0.73 K/mm3 (0.1-0.90); Monocytes Percent Manual 15 % (3-9); Neutrophils Absolute Manual 2.64 K/mm3 (1.3-6.7); Neutrophils Percent Manual 51 % (46-73); Platelet Estimate Adequate (Adequate); Total Cells Counted 100
[2020-04-03] MEDS: SOTALOL HCL 80 MG TABLET PO ×2 (08:41→21:38)
[2020-04-03] MEDS: METOCLOPRAMIDE HCL 10 MG TABLET PO ×2 (08:41→17:13)
[2020-04-03] MEDS: DEXAMETHASONE 2 MG TABLET 6 MG PO (08:41)
[2020-04-03] MEDS: rOPINIRole HCL 0.25 MG TABLET 0.5 MG PO ×2 (08:41→17:13)
[2020-04-03] MEDS: polyethylene glycoL 3350 17 GM POWD.PACK PO (08:41)
[2020-04-03] MEDS: DULoxetine HCL 30 MG CAPSULE.DR 90 MG PO (08:42)
[2020-04-03] MEDS: GABAPENTIN 100 MG CAPSULE PO ×3 (08:42→17:13)
[2020-04-03] MEDS: FUROSEMIDE 40 MG TABLET PO (08:42)
[2020-04-03] MEDS: lisinopriL 5 MG TABLET PO (08:42)
[2020-04-03] MEDS: ESCITALOPRAM OXALATE 10 MG TABLET PO (08:42)
[2020-04-03] MEDS: TAMSULOSIN HCL 0.4 MG CAPSULE PO (08:42)
[2020-04-03] MEDS: busPIRone HCL 10 MG TABLET PO ×3 (08:42→17:13)
[2020-04-03] MEDS: carvediloL 12.5 MG TABLET PO ×2 (08:42→21:38)
[2020-04-03] MEDS: ASPIRIN 81 MG ENTERIC TABLET PO (08:42)
[2020-04-03] MEDS: POTASSIUM CHLORIDE 20 MEQ TABLET.ER PO (08:42)
[2020-04-03] MEDS: PANTOPRAZOLE 40 MG TABLET PO (08:43)
[2020-04-03 10:42] LABS: Alanine Aminotransferase 23 U/L (4-50); Albumin Level 3.7 g/dL (3.5-5.1); Alkaline Phosphatase 80 U/L (38-126); Anion Gap 8 mmol/L (8-16); Aspartate Amino Transferase 34 U/L (17-59); Bilirubin,Total 0.3 mg/dL (0.2-1.3); Blood Urea Nitrogen 31 mg/dL (9-20); CRP 2.3 mg/dL (<1.0); Calcium 8.7 mg/dL (8.4-10.2); Carbon Dioxide 27 mmol/L (22-30); Chloride 103 mmol/L (98-107); Estimated CRCL calculation 58 ml/min; Estimated Glomerular Filt Rate 50; Glucose 106 mg/dL (75-110); Lactate Dehydrogenase 422 U/L (313-618); Sodium 138 mmol/L (137-145)
[2020-04-03 10:44] LABS: Potassium 4.1 mmol/L (3.4-5.0)
[2020-04-03] MEDS: REMDESIVIR 100 MG/NS 250 ML 100 MG/250 ML BAG 250 MG IVPB (12:53)
--- NOTE | 2020-04-03 15:31 | PCOTNOTE ---
The OT treatment was unable to be completed today, 04/03/2020. Will continue plan of care tomorrow, 04/04/2020.
--- NOTE | 2020-04-03 15:38 | P.PNIM_ITS ---
Progress Note: A&P Assessment and Plan (1) COVID-19: Code(s): U07.1 - COVID-19 Status: Acute Assessment and Plan: * Pneumonia secondary to COVID-19. Tested positive 03/31/20. * Continue oral dexamethasone (day 3) and IV Remdesivir (day 2). * Continue supportive care with supplemental O2, albuterol if needed, ant ipyretics. Incentive spirometer. * Improving with decreasing O2 requirements today. (2) Generalized weakness: Code(s): R53.1 - Weakness Status: Acute Assessment and Plan: * His main complaint. Suspect secondary to above. Appreciate PT/OT evaluations. He discharged to [facility] after hospitalization in November this year. Doing home health PT/OT up until a few weeks ago. DC plan is home with home health. (3) Acute respiratory failure with hypoxia: Code(s): J96.01 - Acute respiratory failure with hypoxia Status: Acute Assessment and Plan: * Secondary to COVID-19 pneumonia. Wean O2 as tolerated to keep O2 saturations > 90%. * No acute respiratory distress today. (4) Renal cell carcinoma: Qualifiers: Laterality: right Qualified Code(s): C64.1 - Malignant neoplasm of right kidney, except renal pelvis Code(s): C64.9 - Malignant neoplasm of unspecified kidney, except renal pelvis Status: Acute Assessment and Plan: * He was diagnosed with renal cell carcinoma in February 2020. Recently underwent right partial nephrectomy 03/14/2020 at [place] by . (5) Essential hypertension: Code(s): I10 - Essential (primary) hypertension Status: Chronic Assessment and Plan: * Stable. Maintained on his home lisinopril, Coreg and Lasix (decreased dose). Monitor BP and adjust treatment as needed. (6) Paroxysmal atrial fibrillation: Code(s): I48.0 - Paroxysmal atrial fibrillation Status: Chronic Assessment and Plan: * Rate controlled on his home metoprolol and sotalol. He used to be anticoagulated with Xarelto, discontinued by his oxygen therapy teacher earlier this year per the patient. * He follows with Dr. Sue. (7) CAD (coronary artery disease): Qualifiers: Coronary Disease-Associated Artery/Lesion type: bypass graft [place] vs. transplanted heart: [place] heart Associated angina: without angina Qualified Code(s): I25.810 - Atherosclerosis of coronary artery bypass graft(s) without angina pectoris Code(s): I25.10 - Atherosclerotic heart disease of [place] coronary artery without angina pectoris Status: Chronic Assessment and Plan: * History of multiple coronary stents and CABG x2. Stable. No chest pain. Continue his home medications. (8) CHF (congestive heart failure): Qualifiers: Heart failure type: systolic Heart failure chronicity: chronic Qualified Code(s): I50.22 - Chronic systolic (congestive) heart failure Code(s): I50.9 - Heart failure, unspecified Status: Acute Assessment and Plan: * Chronic diastolic. Appears well compensated. Most recent echocardiogram demonstrated EF of 55-60% in November 2019. * Continue his home beta-blockade, KAMILLA-inhibitor and diuresis. (9) CKD (chronic kidney disease) stage 3, GFR 30-59 ml/min: Code(s): N18.3 -
--- NOTE | 2020-04-03 15:38 | PM.IMPN ---
Progress Note: A&P Assessment and Plan (1) COVID-19: Code(s): U07.1 - COVID-19 Status: Acute Assessment and Plan: Pneumonia secondary to COVID-19. Tested positive 03/31/20. Continue oral dexamethasone (day 3) and IV Remdesivir (day 2). Continue supportive care with supplemental O2, albuterol if needed, antipyretics. Incentive spirometer. Improving with decreasing O2 requirements today. (2) Generalized weakness: Code(s): R53.1 - Weakness Status: Acute Assessment and Plan: His main complaint. Suspect secondary to above. Appreciate PT/OT evaluations. He discharged to [facility] after hospitalization in November this year. Doing home health PT/OT up until a few weeks ago. DC plan is home with home health. (3) Acute respiratory failure with hypoxia: Code(s): J96.01 - Acute respiratory failure with hypoxia Status: Acute Assessment and Plan: Secondary to COVID-19 pneumonia. Wean O2 as tolerated to keep O2 saturations > 90%. No acute respiratory distress today. (4) Renal cell carcinoma: Qualifiers: Laterality: right Qualified Code(s): C64.1 - Malignant neoplasm of right kidney, except renal pelvis Code(s): C64.9 - Malignant neoplasm of unspecified kidney, except renal pelvis Status: Acute Assessment and Plan: He was diagnosed with renal cell carcinoma in February 2020. Recently underwent right partial nephrectomy 03/14/2020 at [place] by . (5) Essential hypertension: Code(s): I10 - Essential (primary) hypertension Status: Chronic Assessment and Plan: Stable. Maintained on his home lisinopril, Coreg and Lasix (decreased dose). Monitor BP and adjust treatment as needed. (6) Paroxysmal atrial fibrillation: Code(s): I48.0 - Paroxysmal atrial fibrillation Status: Chronic Assessment and Plan: Rate controlled on his home metoprolol and sotalol. He used to be anticoagulated with Xarelto, discontinued by his technical business analyst earlier this year per the patient. He follows with Dr. Sue. (7) CAD (coronary artery disease): Qualifiers: Coronary Disease-Associated Artery/Lesion type: bypass graft [place] vs. transplanted heart: [place] heart Associated angina: without angina Qualified Code(s): I25.810 - Atherosclerosis of coronary artery bypass graft(s) without angina pectoris Code(s): I25.10 - Atherosclerotic heart disease of [place] coronary artery without angina pectoris Status: Chronic Assessment and Plan: History of multiple coronary stents and CABG x2. Stable. No chest pain. Continue his home medications. (8) CHF (congestive heart failure): Qualifiers: Heart failure type: systolic Heart failure chronicity: chronic Qualified Code(s): I50.22 - Chronic systolic (congestive) heart failure Code(s): I50.9 - Heart failure, unspecified Status: Acute Assessment and Plan: Chronic diastolic. Appears well compensated. Most recent echocardiogram demonstrated EF of 55-60% in November 2019. Continue his home beta-blockade, KAMILLA-inhibitor and diuresis. (9) CKD (chronic kidney disease) stage 3, GFR 30-59 ml/min: Code(s): N18.3 - Chronic kidney disease, stage 3 (moderate) Status: Chronic Assessment and Plan: Cr appears to be near his baseline. Avoid nephrotoxic medications and monitor renal function. Subjective Date/time seen: 04/03/20 1345 Interval history: Mr. Wallis is a 69yo M admitted for COVID pneumonia. He reports feeling improved to
[2020-04-03] MEDS: oxyCODONE/ACETAMINOPHEN 5-325 MG TABLET 1 TABLET PO (18:47)
[2020-04-03] MEDS: ENOXAPARIN 40 MG/0.4 ML SYRINGE SUB-Q (21:38)
[2020-04-04] VITALS (8 sets, daily range): BP systolic 120–145; BP diastolic 67–91; PULSE 63–101; RESP 16–22; TEMP 36.3–37.4; O2SAT 92–96
[2020-04-04 06:47] LABS: Hematocrit 38.8 % (42.0-52.0); Hemoglobin 12.6 g/dL (14.0-18.0); Immature Granulocyte Absolute 0.02 K/mm3 (0.00-0.031); Immature Granulocyte Percent A 0.4 % (0-0.5); Lymphocytes Absolute Auto 1.67 K/mm3 (0.9-3.2); Lymphocytes Percent Auto 35.3 % (18.3-44.2); Mean Corpuscular HGB Conc 32.5 g/dl (32-36); Mean Corpuscular Volume 92.4 fl (80-100); Mean Platelet Volume 10.4 fl (7.4-10.4); Monocytes Absolute Auto 0.6 K/mm3 (0.1-0.6); Monocytes Percent Auto 11.8 % (2.6-8.5); Neutrophils Absolute Auto 2.5 K/mm3 (1.3-6.7); Neutrophils Percent Auto 52.5 % (45.5-73.1); Platelet Count Result 305 k/mm3 (150-375); Red Cell Distribution Width 16.6 % (11.5-14.5); White Blood Count 4.7 K/mm3 (4.5-10.0)
[2020-04-04 07:01] LABS: Anion Gap 7 mmol/L (8-16); Blood Urea Nitrogen 31 mg/dL (9-20); Calcium 8.9 mg/dL (8.4-10.2); Carbon Dioxide 27 mmol/L (22-30); Chloride 105 mmol/L (98-107); Estimated CRCL calculation 67 ml/min; Estimated Glomerular Filt Rate 60; Glucose 89 mg/dL (75-110); Potassium 4.1 mmol/L (3.4-5.0); Sodium 139 mmol/L (137-145)
[2020-04-04 07:03] LABS: Alanine Aminotransferase 27 U/L (4-50)
[2020-04-04] MEDS: polyethylene glycoL 3350 17 GM POWD.PACK PO (09:11)
[2020-04-04] MEDS: traZODone HCL 50 MG TABLET 100 MG PO (09:11)
[2020-04-04] MEDS: POTASSIUM CHLORIDE 20 MEQ TABLET.ER PO (09:12)
[2020-04-04] MEDS: PANTOPRAZOLE 40 MG TABLET PO (09:12)
[2020-04-04] MEDS: rOPINIRole HCL 0.25 MG TABLET 0.5 MG PO ×2 (09:13→16:34)
[2020-04-04] MEDS: DEXAMETHASONE 2 MG TABLET 6 MG PO (09:13)
[2020-04-04] MEDS: TAMSULOSIN HCL 0.4 MG CAPSULE PO (09:13)
[2020-04-04] MEDS: SOTALOL HCL 80 MG TABLET PO (09:13)
[2020-04-04] MEDS: GABAPENTIN 100 MG CAPSULE PO ×3 (09:13→16:35)
[2020-04-04] MEDS: carvediloL 12.5 MG TABLET PO (09:14)
[2020-04-04] MEDS: busPIRone HCL 10 MG TABLET PO ×3 (09:14→16:34)
[2020-04-04] MEDS: lisinopriL 5 MG TABLET PO (09:14)
[2020-04-04] MEDS: DULoxetine HCL 30 MG CAPSULE.DR 90 MG PO (09:14)
[2020-04-04] MEDS: METOCLOPRAMIDE HCL 10 MG TABLET PO ×2 (09:14→16:35)
[2020-04-04] MEDS: ESCITALOPRAM OXALATE 10 MG TABLET PO (09:14)
[2020-04-04] MEDS: ASPIRIN 81 MG ENTERIC TABLET PO (09:15)
[2020-04-04] MEDS: ENOXAPARIN 40 MG/0.4 ML SYRINGE SUB-Q (09:15)
[2020-04-04] MEDS: FUROSEMIDE 40 MG TABLET PO (09:15)
[2020-04-04] MEDS: REMDESIVIR 100 MG/NS 250 ML 100 MG/250 ML BAG 250 MG IVPB (12:01)
--- NOTE | 2020-04-04 16:33 | HOMEO2EVAL ---
Home Oxygen Evaluation RC: Home Oxygen (O2) Evaluation Start: 04/04/20 08:23 Freq: ONCE Status: Active Protocol: RPE Activity Type Activity Date Activity User E-Sign Co-Sign Detail Recorded Client Recorded Date Recorded By Document 04/04/20 15:35 [email or web address] [email or web address] 04/04/20 16:33 JASPER Document 04/04/20 15:40 [email or web address] [email or web address] 04/04/20 16:33 JASPER Document 04/04/20 15:45 [email or web address] [email or web address] 04/04/20 16:33 JASPER 04/04/20 04/04/20 04/04/20 15:35 15:40 15:45 Home O2 Evaluation Test Phase Resting Exercise Resting Oxygen Delivery Room Air Room Air Room Air Pulse Oximetry (90-100 %) 94 95 95 Pulse Rate (60-100 beats/min) 87 101 H 90 Activity Tolerance Excellent Home Oxygen Evaluation Comments PT WALKED IN NO HOME O2 ROOM NEEDED Treatment Charges O2 Evaluation
--- NOTE | 2020-04-04 16:33 | PCRCNOTE ---
HOME O2 EVAL COMPLETED. NO HOME O2 NEEDED AT THIS TIME.
[2020-04-04] MEDS: oxyCODONE/ACETAMINOPHEN 5-325 MG TABLET 1 TABLET PO (16:35)
--- NOTE | 2020-04-04 16:50 | PM.DS ---
DS: Admitting Diagnosis Admitting Diagnosis Admitting Diagnosis: Weakness DS: Discharge Diagnosis Discharge Diagnosis (1) COVID-19: Code(s): U07.1 - COVID-19 Status: Acute Assessment and Plan: Pneumonia secondary to COVID-19. Tested positive 03/31/20. He had a home o2 evaluation which did not show any need for O2. Pt feeling better day of discharge and did well with PT according to ALUMINUM SIDING APPLICATOR Francis. He was given remdesivir during hospitalization but did not complete the course. He was given oral dexamethasone to go home on. Pt educated on the worrisome s/s to come back to the ER for and was stable at discharge. Educated on quarantining guidelines (2) Generalized weakness: Code(s): R53.1 - Weakness Status: Acute Assessment and Plan: ----Improved and did well with PT. Suspect secondary to above. Home with PT/OT (3) Acute respiratory failure with hypoxia: Code(s): J96.01 - Acute respiratory failure with hypoxia Status: Acute Assessment and Plan: -----Secondary to COVID-19 pneumonia. No distress or o2 requirement. (4) Renal cell carcinoma: Qualifiers: Laterality: right Qualified Code(s): C64.1 - Malignant neoplasm of right kidney, except renal pelvis Code(s): C64.9 - Malignant neoplasm of unspecified kidney, except renal pelvis Status: Acute Assessment and Plan: -----He was diagnosed with renal cell carcinoma in February 2020. Recently underwent right partial nephrectomy 03/14/2020 at [place] by .f/u with them as recommended (5) Essential hypertension: Code(s): I10 - Essential (primary) hypertension Status: Chronic Assessment and Plan: Stable. Last bp 135/84. Maintained on his home lisinopril, Coreg and Lasix (6) Paroxysmal atrial fibrillation: Code(s): I48.0 - Paroxysmal atrial fibrillation Status: Chronic Assessment and Plan: -----Rate controlled on his home metoprolol and sotalol. He used to be anticoagulated with Xarelto, discontinued by his online banking specialist earlier this year per the patient. He follows with Dr. Sue. (7) CAD (coronary artery disease): Qualifiers: Coronary Disease-Associated Artery/Lesion type: bypass graft [place] vs. transplanted heart: [place] heart Associated angina: without angina Qualified Code(s): I25.810 - Atherosclerosis of coronary artery bypass graft(s) without angina pectoris Code(s): I25.10 - Atherosclerotic heart disease of [place] coronary artery without angina pectoris Status: Chronic Assessment and Plan: ----History of multiple coronary stents and CABG x2. Stable. No chest pain. Continue his home medications. (8) CHF (congestive heart failure): Qualifiers: Heart failure type: systolic Heart failure chronicity: chronic Qualified Code(s): I50.22 - Chronic systolic (congestive) heart failure Code(s): I50.9 - Heart failure, unspecified Status: Acute Assessment and Plan: -----Chronic diastolic. Appears well compensated. Most recent echocardiogram demonstrated EF of 55-60% in November 2019. Continue his home beta-blockade, KAMILLA-inhibitor and diuresis. (9) CKD (chronic kidney disease) stage 3, GFR 30-59 ml/min: Code(s): N18.3 - Chronic kidney disease, stage 3 (moderate) Status: Chronic Assessment and Plan: -----Cr appears to be near his baseline. Avoid nephrotoxic medications and monitor renal function. DS: Summary Hospital Course Reason for hospitalization: COVID-19 pneumonia Hospital Course: Patient is a 69-year-old male who presented emergency room for weakness after being diagnosed with COVID-19 the Friday prior. In the ER, white blood cell count 3.9, hemoglobin 12.2, hematocrit 30.8, platelets 316. BMP relatively normal with exception of creatinine 1.4. Chest x-ray was negative. CT of the brain negative. CTA demonstrated no l
--- NOTE | 2020-04-04 18:37 | PC.NURSE ---
Pt is A&O x 3. pt has discharge orders. Pt has had IV removed, and discharge paperwork reviewed. Opportunities for questions was provided, and pt exhibited good understanding of discharge instructions. Pt was assisted to the front lobby, in a wheelchair and by staff.
--- NOTE | 2020-04-13 14:24 | PC.NURSE ---
Blood cx are negative.
== END 2020-04-04 18:30 | disposition home health service (06) | DRG 177 ==
LOC: ANHED 21:58 → ANH3MEDSUR 04-02 01:26
PROVIDERS: Emergency Medicine; Physician Assistant; Admitting Provider Family Medicine; Emergency Provider General Practice; PCP Internal Medicine; Visit Provider Physician Assistant
DX: U07.1 COVID-19 (principal); J12.89 Other viral pneumonia; J96.01 Acute respiratory failure with hypoxia; C64.9 Malignant neoplasm of unspecified kidney, except renal pelvis; I25.810 Atherosclerosis of coronary artery bypass graft(s) without angina pectoris; I50.22 Chronic systolic (congestive) heart failure; I13.0 Hypertensive heart and chronic kidney disease with heart failure and stage 1 through stage 4 chronic kidney disease, or unspecified chronic kidney disease; Z68.41 Body mass index [BMI] 40.0-44.9, adult; N18.3 Chronic kidney disease, stage 3 (moderate); I48.0 Paroxysmal atrial fibrillation; G89.4 Chronic pain syndrome; F41.8 Other specified anxiety disorders; E78.5 Hyperlipidemia, unspecified; G47.33 Obstructive sleep apnea (adult) (pediatric); M48.00 Spinal stenosis, site unspecified; I71.2 Thoracic aortic aneurysm, without rupture; Z96.653 Presence of artificial knee joint, bilateral; E66.9 Obesity, unspecified; Z95.5 Presence of coronary angioplasty implant and graft; Z95.1 Presence of aortocoronary bypass graft; Z95.2 Presence of prosthetic heart valve; Z90.49 Acquired absence of other specified parts of digestive tract
CPT/HCPCS: 36415; 36600; 70450; 71045; 71275; 80048; 80053; 81001; 82375; 82728; 82805; 83050; 83615; 83735; 84132; 84460; 85025; 86140; 87040; 87635; 93005; 93970; 94618; 96360; 97110; 97116; 97161; 97165; 97535; 99285; A9270; C9803; J1650; J2405; J2543; J7040; J8540; Q9967; U0003

== ENCOUNTER 2020-04-09 14:01 | Inpatient (IN) | payer MEDICARE, SELFPAY ==
--- NOTE | ~2020-04-09 | US_ITS ---
EXAMINATION: US renal BI DATE: 04/12/2020 12:32 INDICATION: Right renal mass, acute kidney injury TECHNIQUE: Multiple grayscale and Doppler ultrasound images of the kidneys were obtained. COMPARISON: 11/18/2019 FINDINGS: The right kidney measures 11.3 x 4.5 x 5.8 cm. There is a 4.5 x 2.5 cm right kidney mass, s lightly increased in size since the comparison examination. The left kidney measures 11.4 x 5.6 x 5 c m and contains cysts measuring up to 2.9 cm. The kidneys demonstrate normal parenchymal echogenicity. There is no hydronephrosis. The bladder is decompressed by Head catheter. IMPRESSION: 1. Right kidney lower pole mass, consistent with renal cell carcinoma. Reviewed, dictated and finalized at location B.
--- NOTE | ~2020-04-09 | XR_ITS ---
EXAMINATION: XR chest 1V portable DATE: 04/14/2020 05:51 INDICATION: COVID 19 pneumonia TECHNIQUE: frontal view of the chest was obtained. COMPARISON: Chest radiograph dated 04/13/20 FINDINGS: Diffuse bilateral patchy bilateral airspace opacities with some increase in the right mid to upper kailee ng zone. Possible small left pleural effusion. No pneumothorax. Cardiomegaly. Median sternotomy wires , ostial markers and mediastinal surgical clips consistent with prior coronary artery bypass grafting . Mitral valve repair. Right upper extremity peripherally inserted central venous catheter (PICC) tip at the superior vena cava. IMPRESSION: 1. Scattered bilateral airspace opacities consistent with multifocal pneumonia with some worsening in the right upper lung zone. 2. Possible small left pleural effusion. 3. Cardiomegaly. Reviewed, dictated and finalized at location A.
--- NOTE | ~2020-04-09 | US_ITS ---
EXAMINATION: US arterial duplex LE DATE: 04/18/2020 15:24 INDICATION: Cold feet. Weak pulses. Abnormal left toe brachial index on prior study. TECHNIQUE: Multiple grayscale and Doppler ultrasound images of the arteries of the left and right low er limbs were obtained. COMPARISON: None FINDINGS: There is a small amount of scattered atherosclerotic plaque throughout the arteries of the both lower limbs with no evident hemodynamically significant stenosis on grayscale imaging. There are triphasic waveforms with brisk systolic upstrokes in the right common femoral, profunda femoral, superficial f emoral, popliteal, posterior tibial and dorsalis pedis arteries. There are also triphasic waveforms w ith brisk systolic upstrokes in the left common femoral, profunda femoral, superficial femoral, popli teal, and posterior tibial arteries. Biphasic waveforms with brisk systolic upstroke at the left dors eleonora pedis artery. IMPRESSION: 1. Small amount of scattered atherosclerotic plaque with no hemodynamically significant stenosis on g rayscale imaging and with brisk systolic upstrokes throughout the arteries of both lower limbs. Reviewed, dictated and finalized at location A. IMPRESSION: 1. Small amount of scattered atherosclerotic plaque with no hemodynamically sig nificant stenosis on grayscale imaging and with brisk systolic upstrokes throug hout the arteries of both lower limbs.
--- NOTE | ~2020-04-09 | CT_ITS ---
EXAMINATION: CT brain wo con DATE: 04/09/2020 15:33 INDICATION: Confusion TECHNIQUE: Computed tomography (CT) of the head was performed without intravenous contrast. The mA wa s adjusted according to patient size. Iterative reconstruction technique was employed. Exam dose: 68 1.00 mGy-cm total exam DLP. COMPARISON: None FINDINGS: Vertebral and internal carotid artery calcifications. There is nonspecific diminished atten uation of the cerebral white matter, likely due to chronic small vessel ischemic changes. There is evidence of chronic infarct in the right basal ganglia. There is moderate cerebral atrophy. No intracranial mass lesion or hemorrhage, midline shift or mass effect is evident. No subdural or epidural hematoma is detected. There is an approximately 2 cm mucous retention cyst or polyp in the floor of the left maxillary sinu s. The paranasal sinuses and mastoid air cells otherwise are unremarkable. No fracture or bone destruction of the cranial vault. IMPRESSION: Cerebral atherosclerosis and chronic small vessel ischemic changes, chronic right basal ganglia infarct No acute intracranial finding or skull fracture Reviewed, dictated and finalized at Location A. Reviewed, dictated and finalized at location A. IMPRESSION: Cerebral atherosclerosis and chronic small vessel ischemic changes , chronic right basal ganglia infarct No acute intracranial finding or skull fracture
--- NOTE | ~2020-04-09 | XR_ITS ---
EXAMINATION: XR chest ET placement DATE: 04/14/2020 07:17 INDICATION: Endotracheal tube placement. Orogastric tube placement. TECHNIQUE: 1. Frontal view of the chest was obtained. 2. AP view of the upper abdomen was obtained. COMPARISON: Chest radiograph dated 04/14/2020 at 5:29 AM FINDINGS: Chest: Endotracheal tube tip 2.5 cm above the kateryna. No significant interval change accounting for differen anita in technique in bilateral patchy airspace opacities throughout the right lung and in the left mid to lower lung zone. Possible small left pleural effusion. No pneumothorax. Cardiomegaly. Median ster notomy wires and mediastinal surgical clips are seen, likely from prior coronary artery bypass grafti ng. Mitral valve repair. Abdomen: Nasogastric tube tip in the body of the stomach. Nondistended gas-filled colon in the visualized uppe r abdomen. IMPRESSION: 1. Endotracheal tube and orogastric tube in expected positions. 2. No interval change in diffuse bilateral lung disease which could represent pneumonia, pulmonary ed deyvi, atelectasis or some combination thereof. 3. Possible small left pleural effusion. 4. Cardiomegaly. Reviewed, dictated and finalized at location A. IMPRESSION: 1. Endotracheal tube and orogastric tube in expected positions. 2. No interval change in diffuse bilateral lung disease which could represent p neumonia, pulmonary edema, atelectasis or some combination thereof. 3. Possible small left pleural effusion. 4. Cardiomegaly.
--- NOTE | ~2020-04-09 | XR_ITS ---
XR chest 1V portable 04/15/2020 03:37 Indication: Pneumonia. Shortness of breath. Procedure: AP portable chest Comparison: 04/12/2020 Findings: Endotracheal tube 5.8 cm above the kateryna. NG tube in the stomach. Heart size upper normal. There is pulmonary edema. Probable small effusions. No pneumothorax. Right subclavian PICC line tip in the SVC. Impression: 1: Mild interstitial edema with possible small effusions. Reviewed, dictated and finalized at location A. Impression: 1: Mild interstitial edema with possible small effusions.
--- NOTE | ~2020-04-09 | XR_ITS ---
EXAMINATION: XR chest 1V portable EXAM DATE: 04/20/2020 05:32 INDICATION: Respiratory failure. TECHNIQUE: Portable AP frontal chest x-ray was obtained. Comparison is made to prior examination from 04/19, 04/18, 04/17. FINDINGS: Sternotomy wires are present without findings to suggest sternal dehiscence. Cardiac valve replacement. Endotracheal tube tip is 3 centimeters above the kateryna (ideal range is between 2 to 5 c m). There is a nasogastric tube seen with tip collimated off the study, but below the left hemidiaph ragm. There is a right-sided PICC line. Again there is extensive left-sided and moderate right-sided acute airspace disease probably acute kailee ng injury from COVID-19 given the history provided. There are no sizable pleural effusions. There is no pneumothorax suspected. Cardiac silhouette is stable in size compared to prior exam. Some th oracic spondylosis. Compared to last several days, there may be slight interval improvement in airspace disease. IMPRESSION: 1. Line(s) and tube(s) in position. 2. Extensive left, moderate right-sided acute airspace disease. Reviewed, dictated and finalized at location A.
--- NOTE | ~2020-04-09 | XR_ITS ---
EXAMINATION: XR chest 1V portable DATE: 04/13/2020 06:15 INDICATION: COVID 19 pneumonia TECHNIQUE: frontal view of the chest was obtained. COMPARISON: Chest radiograph dated 04/12/2020 FINDINGS: Patient rotated towards the right. Right upper extremity peripherally inserted central venous cathete r (PICC) tip at the superior vena cava. Increasing airspace opacities in the left mid to lower lung zones and scattered throughout the right lung. Possible small left pleural effusion. No pneumothorax. Cardiomegaly. Median sternotomy wires, ostial markers and mediastinal surgical clips consistent with prior coronary artery bypass grafting. Mitral valve repair. IMPRESSION: 1. Increasing scattered bilateral airspace opacities concerning for worsening pneumonia with differen tial including pulmonary edema and atelectasis. 2. Possible small left pleural effusion. 2. Cardiomegaly. Reviewed, dictated and finalized at location A. IMPRESSION: 1. Increasing scattered bilateral airspace opacities concerning for worsening p neumonia with differential including pulmonary edema and atelectasis. 2. Possible small left pleural effusion. 2. Cardiomegaly.
--- NOTE | ~2020-04-09 | XR_ITS ---
XR chest 1V portable 04/16/2020 05:59 Indication: Pneumonia. Procedure: AP portable chest Comparison: Comparison to multiple prior studies sequentially, with oldest reviewed study dated 04/13. Findings: Endotracheal tube tip 4.2 cm above the kateryna. Status post median sternotomy. Cardiomegaly. Diffuse bilateral airspace disease. Small pleural effusions. Impression: 1: Diffuse bilateral airspace disease, consistent with pneumonia. Other considerations include edema and ARDS. 2: Small pleural effusions. Reviewed, dictated and finalized at location A. Impression: 1: Diffuse bilateral airspace disease, consistent with pneumonia. Other conside rations include edema and ARDS. 2: Small pleural effusions.
--- NOTE | ~2020-04-09 | XR_ITS ---
XR chest 1V portable DATE: 04/17/2020 05:57 INDICATION: Covid 19 pneumonia TECHNIQUE: Portable upright AP chest on 04/17/2020 at 0519 hours COMPARISON: 04/16/2020 portable AP chest FINDINGS: ET tube in satisfactory position 2.9 cm above kateryna. An nasogastric tube is identified, obscured distally. Status post sternotomy. Cardiac valve replacement. There is extensive bilateral pulmonary infiltrates which predominate centrally and in the lower lung zones suggesting possible pulmonary edema and/or bilateral pneumonia. There is prominence of the torie r fissure which may indicate subpleural edema and/or fluid along the fissure. Diffuse osteopenia. IMPRESSION: Extensive increased bilateral pulmonary infiltrates which may be due to congestive heart failure and associated pulmonary edema and/or bilateral pneumonia Reviewed, dictated and finalized at location A. IMPRESSION: Extensive increased bilateral pulmonary infiltrates which may be du e to congestive heart failure and associated pulmonary edema and/or bilateral p neumonia
--- NOTE | ~2020-04-09 | XR_ITS ---
EXAMINATION: XR chest 1V portable INDICATION: Pneumonia, shortness of breath TECHNIQUE: Portable AP chest at 1020 hours COMPARISON: 04/09/2020 FINDINGS: Patchy bilateral airspace opacities persist with slight worsening throughout the left lung. No definite pleural effusion or pneumothorax is identified. Cardiomegaly is noted. There are changes of prior cardiac surgery. No pneumothorax is identified. IMPRESSION: 1. Patchy bilateral airspace opacities with interval worsening in the left lung, consistent with atel ectasis versus pneumonia. Reviewed, dictated and finalized at location B. IMPRESSION: 1. Patchy bilateral airspace opacities with interval worsening in the left lung , consistent with atelectasis versus pneumonia.
--- NOTE | ~2020-04-09 | XR_ITS ---
EXAMINATION: XR chest 1V portable EXAM DATE: 04/18/2020 05:52 INDICATION: Respiratory failure. TECHNIQUE: Portable AP frontal chest x-ray was obtained. Comparison is made to prior examination from 04/17/2020. FINDINGS: Sternotomy wires are present without findings to suggest sternal dehiscence. Cardiac valve replacement. Endotracheal tube tip is 3 centimeters above the kateryna (ideal range is between 2 to 5 cm). There is a nasogastric tube seen with tip collimated off the study, but below the left hemidiap hragm. There is a right-sided PICC line. Again there is extensive left-sided and moderate right-sided acute airspace disease probably acute kailee ng injury from COVID-19 given the history provided. There are no sizable pleural effusions. There is no pneumothorax suspected. Cardiac silhouette is stable in size compared to prior exam. Some th oracic spondylosis. There is no significant interval change compared to prior exam. IMPRESSION: 1. Line(s) and tube(s) in position. 2. Extensive left, moderate right-sided acute airspace disease unchanged. Reviewed, dictated and finalized at location A.
--- NOTE | ~2020-04-09 | US_ITS ---
EXAMINATION: US art doppler w press LE DATE: 04/15/2020 18:23 INDICATION: Peripheral arterial disease. TECHNIQUE: Segmental pressures and plethysmographic and Doppler waveforms of the brachial and lower e xtremity arteries were obtained. COMPARISON: None. FINDINGS: The right brachial artery pressure was not measured. The left brachial artery pressure was 112 mm Hg. The right ankle-brachial index (MICHELET) is 1.13 (normal >= 0.9-1.0). The right great toe-brachial index (TBI) is 0.71 (normal >= 0.65). Arterial Doppler waveforms are triphasic from common femoral artery t o posterior tibial artery and biphasic in dorsalis pedis. The left MICHELET is 1.12. The left TBI is 0.50. Arterial Doppler waveforms are at least triphasic from co mmon femoral artery to posterior tibial artery and biphasic in dorsalis pedis. IMPRESSION: 1. Decreased left TBI and normal left MICHELET, consistent with left-sided arterial occlusive disease. Not e that MICHELET may be overestimated if arteries are calcified. Reviewed, dictated and finalized at location A. IMPRESSION: 1. Decreased left TBI and normal left MICHELET, consistent with left-sided arterial occlusive disease. Note that MICHELET may be overestimated if arteries are calcified .
--- NOTE | ~2020-04-09 | XR_ITS ---
EXAMINATION: XR chest PICC line DATE: 04/12/2020 13:20 INDICATION: PICC line placement TECHNIQUE: frontal view of the chest was obtained. COMPARISON: Chest radiograph dated 04/12/2020 FINDINGS: Right upper extremity peripherally inserted central venous catheter (PICC) tip at the caudal superio r vena cava. Patient is rotated towards the right. Persistent patchy airspace opacities in the left l ower lung zone. Calcified nodules in the left midlung zone consistent with old granulomatous disease. Streaky opacity likely discoid atelectasis at the right midlung zone. No pleural effusion or pneumot horax. Cardiomegaly. Median sternotomy wires, ostial markers and mediastinal surgical clips consisten t with prior coronary artery bypass grafting. There has also been prior mitral valve repair. Tortuous thoracic aorta. IMPRESSION: 1. Right PICC line tip in the caudal superior vena cava. 2. Persistent opacities in the left lower lung zone which could represent pneumonia and/or atelectasi s. Reviewed, dictated and finalized at location A. IMPRESSION: 1. Right PICC line tip in the caudal superior vena cava. 2. Persistent opacities in the left lower lung zone which could represent pneum onia and/or atelectasis.
--- NOTE | ~2020-04-09 | XR_ITS ---
XR chest 1V portable DATE: 04/09/2020 14:31 INDICATION: Paresis. Covid 19 Positive patient. TECHNIQUE: Portable AP chest on 04/09/2020 at 1429 hours COMPARISON: 04/01/2020 portable AP chest 04/01/2020 CT pulmonary scan FINDINGS: There is patchy infiltrate or atelectasis in the lower lung zones, left greater than right. Cardiomegaly. Aortic calcification, ectasia and tortuosity. Status post sternotomy and mitral valve r eplacement. No pleural effusion. Pulmonary vascularity is within normal limits. No pneumothorax. Diffuse osteopenia. IMPRESSION: Patchy bilateral infiltrate and/atelectasis, primarily in the left lower lung Reviewed, dictated and finalized at location A.
--- NOTE | ~2020-04-09 | XR_ITS ---
EXAMINATION: XR chest 1V portable EXAM DATE: 04/19/2020 05:54 INDICATION: Respiratory failure. TECHNIQUE: Portable AP frontal chest x-ray was obtained. Comparison is made to prior examination from 04/18/2020. FINDINGS: Sternotomy wires are present without findings to suggest sternal dehiscence. Cardiac valve replacement. Endotracheal tube tip is 3 centimeters above the kateryna (ideal range is between 2 to 5 c m). There is a nasogastric tube seen with tip collimated off the study, but below the left hemidiaph ragm. There is a right-sided PICC line. Again there is extensive left-sided and moderate right-sided acute airspace disease probably acute kailee ng injury from COVID-19 given the history provided. There are no sizable pleural effusions. There is no pneumothorax suspected. Cardiac silhouette is stable in size compared to prior exam. Some th oracic spondylosis. There is no significant interval change compared to prior exam. IMPRESSION: 1. Line(s) and tube(s) in position. 2. Extensive left, moderate right-sided acute airspace disease unchanged. Reviewed, dictated and finalized at location A.
--- NOTE | 2020-04-09 14:10 | ECG_ITS ---
Measurements Intervals [place] Rate: 105 P: -42 DE: 159 QRS: -20 QRSD: 107 T: 30 QT: 347 QTc: 460 Interpretive Statements SINUS TACHYCARDIA ATRIAL PREMATURE COMPLEX INCOMPLETE RIGHT BUNDLE BRANCH BLOCK EARLY PRECORDIAL R/S TRANSITION ST-T WAVE ABNORMALITY IN ANT/HIGH LAT LEADS- CONSIDER ISCHEMIA BASELINE ARTIFACT- I, II, III, AVR, AVL, AVF ABNORMAL ECG Electronically Signed On 04-09-2020 15:35:18 CDT by Александр Covarrubias D.O.
[2020-04-09 14:15] VITALS: BP 160/100; PULSE 107; RESP 22; TEMP 36.5; O2SAT 98
--- NOTE | 2020-04-09 14:16 | ED.AMS ---
HPI - Altered Mental Status General Chief Complaint: Altered Mental Status <Gamaliel PonceJOSÉ LUIS - Last Filed: 04/09/20 17:33> Stated Complaint: AMS <Gamaliel PonceJOSÉ LUIS - Last Filed: 04/09/20 17:33> Source: patient, family, EMS and old records reviewed <Gamaliel Glass JOSÉ LUIS Ponce - Last Filed: 04/09/20 17:33> Mode of arrival: EMS <JOSÉ LUIS Carver Last Filed: 04/09/20 17:33> Limitations: no limitations and altered mental status <Gamaliel PonceJOSÉ LUIS - Last Filed: 04/09/20 17:33> History of Present Illness HPI narrative: Patient is a 69-year-old male who presents per EMS with generalized weakness and altered mentation patient is approximately 12 days into his COVID-19 diagnosis was recently admitted and discharged from the hospital with weakness patient was brought in on April 01 and discharged April 04. Patient since being discharged home is continued to have weakness and gradual decline and then this morning was found to be confused on the toilet slumped over. Patient on arrival to emergency department is alert and oriented to self place reason for being in the emergency department and the month and year. Patient notes generalized weakness denying any pain does note dyspnea. Patient has multiple comorbidities. Patient did have recent surgery for kidney cancer at [facility]. Patient on arrival appears ill. Spoke with the patient's who is at home and is also COVID-19 positive. She notes that the patient has had worsening condition since being discharged home denies any falls injury or trauma. notes that the patient was more confused today and had been slightly confused yesterday <Gamaliel Ponce PA-C - Last Filed: 04/09/20 17:33> Related Data Home Medications: Home Medications Medication Instructions Recorded Confirmed aspirin [Aspir-81] 81 mg PO DAILY 11/18/19 04/01/20 buspirone 10 mg PO TID 11/18/19 04/01/20 duloxetine 90 mg PO DAILY 11/18/19 04/01/20 escitalopram oxalate [Lexapro] 10 mg PO DAILY 11/18/19 04/01/20 gabapentin 100 mg PO TID 11/18/19 04/01/20 nitroglycerin 0.4 mg SUBLINGUAL Q5-15M PRN 11/18/19 04/01/20 pantoprazole 40 mg PO DAILY 11/18/19 04/01/20 polyethylene glycol 3350 [Miralax] 17 g PO DAILY 11/18/19 04/01/20 ropinirole [Requip] 0.5 mg PO BID 11/18/19 04/01/20 sotalol 80 mg PO BID 11/18/19 04/01/20 tamsulosin 0.4 mg PO DAILY 11/18/19 04/01/20 trazodone 200 mg PO HS PRN 11/18/19 04/01/20 metoclopramide HCl 10 mg PO BID 04/01/20 04/01/20 metoclopramide HCl 10 mg PO BID PRN 04/01/20 04/01/20 oxycodone-acetaminophen [Percocet] 1 tablet PO Q6H PRN 04/01/20 04/01/20 <Gamaliel Ponce PA-C - Last Filed: 04/09/20 17:33> Allergies/Adverse Reactions: Allergies Allergy/AdvReac Type Severity Reaction Status Date / Time amiodarone Allergy Unknown Verified 04/09/20 14:23 Uiezsiy-Flz-Fnl Reductase AdvReac Muscle Pain Verified 04/01/20 17:44 Inhibitor <Gamaliel Ponce PA-C - Last Filed: 04/09/20 17:33> [facility] Past Medical History Medical History: Medical History (Updated 04/09/20 @ 17:33 by Gamaliel Ponce PA-C) Anxiety CAD (coronary artery disease) with 6 stents CHF (congestive heart failure) Echo in November 2019 EF 55-60%; improved from a previous echocardiogram in February 2019 demonstrating EF 40-45%. Chronic pain syndrome CKD (chronic kidney disease) stage 3, GFR 30-59 ml/min Depression with anxiety Hyperlipidemia Hypertension Mitral valve regurgitation CHI (obstructive sleep apnea) intolerant to CPAP Paroxysmal atrial fibrillation Cardioversion February 2019 Renal cell carcinoma Diagnosed by right renal mass biopsy 02/07/20. Right partial nephrectomy at [place] 03/14/20. Urologist is Dr. Israel at [facility]. Spinal stenosis Thoracic aortic aneurysm <Gamaliel Ponce PA-C - Last Filed: 04/09/20 17:33> Surgical History Surgical History: Surgical History (Updated 04/02/20 @ 17:37 by LENY Vivas-
[2020-04-09] MEDS: SODIUM CHLORIDE 0.9% IV 500 ML 999 ML IV CONT (14:41)
[2020-04-09 14:46] LABS: Basophils Percent Auto 0.1 % (0.2-1.2); Hematocrit 42.4 % (42.0-52.0); Hemoglobin 14.4 g/dL (14.0-18.0); Immature Granulocyte Absolute 0.08 K/mm3 (0.00-0.031); Immature Granulocyte Percent A 0.7 % (0-0.5); Lymphocytes Absolute Auto 0.82 K/mm3 (0.9-3.2); Lymphocytes Percent Auto 7.2 % (18.3-44.2); Mean Corpuscular Hemoglobin 30.3 pg (26-34); Mean Corpuscular Volume 89.3 fl (80-100); Mean Platelet Volume 10.6 fl (7.4-10.4); Monocytes Percent Auto 8.9 % (2.6-8.5); Neutrophils Absolute Auto 9.5 K/mm3 (1.3-6.7); Neutrophils Percent Auto 83.1 % (45.5-73.1); Platelet Count Result 254 k/mm3 (150-375); Red Blood Count 4.75 M/mm3 (4.6-6.20); Red Cell Distribution Width 16.2 % (11.5-14.5); White Blood Count 11.4 K/mm3 (4.5-10.0)
[2020-04-09 14:47] LABS: Alveolar/Arterial O2 Gradient 45.5 mmHg; Base Excess ABG -0.2 mEq/l (+/-2.0); Fractional Inspired Oxygen 21 %; HCO3 ABG 21.8 mEq/l (22.0-26.0); Methemoglobin ABG 0.3 %THb (0-1.5); Oxygen Content ABG 18.7 %vol (16.0-22.0); Oxygen Saturation ABG 95.5 % (95.0-100.0); Oxyhemoglobin 93.2 % THb (90.0-100.0); PCO2 ABG 28.9 mmHg (35.0-45.0); PO2 ABG 69.6 mmHg (80.0-100.0); PO2 FiO2 Ratio Arterial Blood 3.31 %; Reduced Hemoglobin 5.5 %THb (0-5.0); Total Hemoglobin 14.3 g/dL (12.0-18.0); pH ABG 7.496 (7.350-7.450)
[2020-04-09 14:49] LABS: Device ROOM AIR; Modified Allen's Test Pass; Site Drawn LEFT RADIAL
[2020-04-09 14:54] LABS: INR 1.1
[2020-04-09 14:55] LABS: Partial Thromboplastin Time 26.6 SECONDS (22.3-36.8)
[2020-04-09 14:58] LABS: Lactic Acid Reflex 2.9 mmol/L (0.7-2.1)
[2020-04-09 14:59] LABS: Lactate Dehydrogenase 478 U/L (313-618)
[2020-04-09 15:02] LABS: Magnesium 1.6 mg/dL (1.6-2.3); Phosphorus 2.1 mg/dL (2.5-4.5)
[2020-04-09 15:03] LABS: Alanine Aminotransferase 54 U/L (4-50); Albumin Level 4.1 g/dL (3.5-5.1); Alkaline Phosphatase 89 U/L (38-126); Anion Gap 12 mmol/L (8-16); Aspartate Amino Transferase 41 U/L (17-59); Bilirubin,Total 1.2 mg/dL (0.2-1.3); Blood Urea Nitrogen 30 mg/dL (9-20); CRP 6.6 mg/dL (<1.0); Calcium 9.2 mg/dL (8.4-10.2); Carbon Dioxide 21 mmol/L (22-30); Chloride 104 mmol/L (98-107); Estimated CRCL calculation 67 ml/min; Estimated Glomerular Filt Rate 60; Glucose 109 mg/dL (75-110); Lipase 44 U/L (23-300); Potassium 3.7 mmol/L (3.4-5.0); Sodium 137 mmol/L (137-145)
[2020-04-09 15:10] LABS: NT Pro B Type Natriuretic Pept 1830 PG/ML (5-100)
[2020-04-09 15:21] LABS: Troponin I 0.038 ng/mL (0.000-0.034)
[2020-04-09 16:04] LABS: Add Urine Microscopic? YES; Appearance Urine Clear (Clear); Bacteria Urine Trace /hpf; Bilirubin Urine Negative (Negative); Blood Urine 1+ (Negative); Color Urine Yellow (Yellow); Glucose Urine UA Negative (Negative); Ketones Urine Negative (Negative); Leukocyte Esterase Ur Negative LEU/UL (Negative); Mucus Urine Rare /lpf; Nitrate Urine Negative (Negative); Protein Urine 2+ mg/dL (Negative); RBC Urine 21-50 /hpf (0-2); Specific Grav Ur 1.018 (1.001-1.035); WBC Urine 0-3 /hpf
[2020-04-09 17:24] VITALS: BP 159/78; PULSE 88; RESP 25; O2SAT 100
[2020-04-09 17:30] VITALS: BP 151/76; PULSE 91; RESP 28; O2SAT 93
[2020-04-09 17:44] LABS: Reflex Lactic Acid Yes or No Add Lactic
[2020-04-09 18:18] LABS: Lactic Acid 2.3 mmol/L (0.7-2.1)
[2020-04-09 18:34] LABS: Cholesterol 238 mg/dL (0-200); HDL Direct 46 mg/dL; Triglycerides 375 mg/dL (<150)
[2020-04-09 18:44] LABS: LDL Cholesterol Direct 100 mg/dL
[2020-04-09] MEDS: ONDANSETRON INJ 4 MG/2 ML VIAL IV PUSH (19:17)
[2020-04-09 20:00] VITALS: BP 107/73; PULSE 81; PULSE 88; RESP 21; TEMP 36.7; O2SAT 93
[2020-04-09 21:32] LABS: Troponin I 0.053 ng/mL (0.000-0.034)
[2020-04-09 22:00] VITALS: PULSE 88; RESP 20; O2SAT 92
[2020-04-09 23:00] VITALS: BP 133/64; PULSE 92; RESP 17; O2SAT 93
[2020-04-09 23:10] LABS: Glucose Point of Care 103 (65-105)
--- NOTE | 2020-04-09 23:30 | PM.IMHP ---
H&P: HPI History of Present Illness Date/Time: 04/09/20 22:30 <Carla Gracia PA-C - Last Filed: 04/10/20 23:27> Chief complaint: Generalized weakness, confusion. <Carla Gracia PA-C - Last Filed: 04/10/20 23:27> Narrative: Emil Wallis is a a 71-year-old male with coronary artery disease status, congestive heart failure, atrial fibrillation, obstructive sleep apnea, chronic kidney disease, hypertension, and renal cell carcinoma who presented to the emergency department earlier today via EMS from home for evaluation of generalized weakness and confusion. He is known to the hospitalist service with a recent stay from 04/01 to 04/04 in which he was admitted and treated for COVID-19 with hypoxia. He received remdesivir while in the hospital however did not complete a full course as he was discharged before the 5 day course was finished. He was also treated with dexamethasone and was discharged on such. He reports feeling better on discharge however he has become progressively more weak since that time. He has suffered from nausea for many months, it does not sound as though he has good oral intake. Today he had several episodes of loose stools, and not long prior to arrival it sounds as though he may have had a near syncopal episode on the toilet as he became confused, ashen, and he slumped over without loss of consciousness. Pertinent labs obtained emergency department included an elevated lactic acid level of 2.9 and troponin of 0.038. his white count was also elevated at 11.4 and he is being admitted in this setting. At the time my evaluation he is alert and oriented x4. Other than his chronic nausea and gradual decline over the last 3 days, he has no other complaints. He still has mild shortness of breath and nonproductive cough. He denies fever, sweats, sinus congestion, chest pain, blood in mucus in the stool, or dysuria. Of note, I received a phone call from the nurse after I examined the patient, that when he attempted to eat a sandwich he began complaining of severe nausea and did become bradycardic into the 30s. <Carla Gracia PA-C - Last Filed: 04/10/20 23:27> Review of Systems Review of Systems: Narrative: Twelve systems were reviewed with pertinent positives and negatives as per HPI. No headache. He denies lightheadedness and dizziness. No falls. No chest or pleuritic pain. He denies palpitations. He has chronic nausea as detailed above. He denies significant indigestion, bloating, and belching. No melena or hematochezia. He denies dysuria and hematuria. Except as documented, all other systems were reviewed and are negative. <Carla Gracia PA-C - Last Filed: 04/10/20 23:27> [facility] Past Medical History Medical History: Medical History (Updated 04/15/20 @ 08:57 by Arianna Sampson MD) Anxiety Benign prostatic hyperplasia Cerebrovascular accident Chronic right basal ganglia infarct noted on brain CT on 04/09/2020. Chronic kidney disease, stage 3 Chronic pain syndrome Congestive heart failure Echo in November 2019 EF 55-60%; improved from a previous echocardiogram in February 2019 demonstrating EF 40-45%. Coronary artery disease Status post stent x6 and CABG x2. COVID-19 (~03/31/20) Depression with anxiety Gastroesophageal reflux Hyperlipidemia Hypertension Mitral valve regurgitation Obstructive sleep apnea Intolerant to CPAP. Osteoarthritis Paroxysmal atrial fibrillation Status post cardioversion in 2018. No longer on long-term anticoagulation. Renal cell carcinoma Diagnosed by right renal mass biopsy on 02/07/20. Right partial nephrectomy at [facility] 03/14/20. Urologist is Dr. Israel at [facility]. Spinal stenosis Thoracic aortic aneurysm <Carla Gracia PA-C - Last Filed: 04/10/20 23:27> Surgical History Surgical History: Surgical History (Updated 04/10/20 @ 00:35 by Carla Gracia PA-C) History of cholecystectomy History of coronary artery bypass maurisio
--- NOTE | 2020-04-09 23:34 | ECG_ITS ---
Measurements Intervals [place] Rate: 93 P: [place]: 0 QRS: -26 QRSD: 109 T: 86 QT: 365 QTc: 455 Interpretive Statements SINUS RHYTHM ATRIAL AND VENTRICULAR PREMATURE COMPLEXES EARLY PRECORDIAL R/S TRANSITION ST-T WAVE ABNORMALITY IN ANT/HIGH LAT LEADS- CONSIDER ISCHEMIA BASELINE ARTIFACT- I, II, III, AVR, AVL, AVF, V1, V4-V6 ABNORMAL ECG Electronically Signed On 04-10-2020 12:01:36 CDT by Александр Covarrubias D.O.
[2020-04-10] VITALS (19 sets, daily range): BP systolic 96–154; BP diastolic 65–122; PULSE 72–103; RESP 20–37; TEMP 36.6–37.6; O2SAT 90–93
[2020-04-10 00:21] LABS: Troponin I 0.048 ng/mL (0.000-0.034)
[2020-04-10] MEDS: SODIUM CHLORIDE 0.9% IV 500 ML 100 ML IV CONT (02:23)
[2020-04-10 06:09] LABS: Basophils Percent Auto 0.1 % (0.2-1.2); Hematocrit 39.1 % (42.0-52.0); Hemoglobin 13.1 g/dL (14.0-18.0); Immature Granulocyte Absolute 0.07 K/mm3 (0.00-0.031); Immature Granulocyte Percent A 0.6 % (0-0.5); Lymphocytes Absolute Auto 0.89 K/mm3 (0.9-3.2); Lymphocytes Percent Auto 7.3 % (18.3-44.2); Mean Corpuscular HGB Conc 33.5 g/dl (32-36); Mean Corpuscular Hemoglobin 30.4 pg (26-34); Mean Corpuscular Volume 90.7 fl (80-100); Mean Platelet Volume 10.6 fl (7.4-10.4); Monocytes Absolute Auto 0.8 K/mm3 (0.1-0.6); Monocytes Percent Auto 6.2 % (2.6-8.5); Neutrophils Absolute Auto 10.5 K/mm3 (1.3-6.7); Neutrophils Percent Auto 85.8 % (45.5-73.1); Platelet Count Result 199 k/mm3 (150-375); Red Blood Count 4.31 M/mm3 (4.6-6.20); Red Cell Distribution Width 16.3 % (11.5-14.5); White Blood Count 12.2 K/mm3 (4.5-10.0)
[2020-04-10 06:43] LABS: Alanine Aminotransferase 38 U/L (4-50); Albumin Level 3.6 g/dL (3.5-5.1); Alkaline Phosphatase 73 U/L (38-126); Anion Gap 8 mmol/L (8-16); Aspartate Amino Transferase 34 U/L (17-59); Bilirubin,Total 1.1 mg/dL (0.2-1.3); Blood Urea Nitrogen 23 mg/dL (9-20); Calcium 8.7 mg/dL (8.4-10.2); Carbon Dioxide 23 mmol/L (22-30); Chloride 104 mmol/L (98-107); Estimated CRCL calculation 80 ml/min; Estimated Glomerular Filt Rate > 60; Glucose 135 mg/dL (75-110); Magnesium 1.7 mg/dL (1.6-2.3); Sodium 135 mmol/L (137-145)
[2020-04-10 07:00] LABS: Potassium 3.5 mmol/L (3.4-5.0)
[2020-04-10] MEDS: ALPRAZolam 0.5 MG TABLET PO (07:28)
[2020-04-10] MEDS: ASPIRIN 81 MG ENTERIC TABLET PO (07:30)
[2020-04-10] MEDS: METOCLOPRAMIDE HCL 10 MG TABLET PO (07:30)
[2020-04-10] MEDS: GABAPENTIN 100 MG CAPSULE PO ×3 (07:30→17:55)
[2020-04-10] MEDS: ENOXAPARIN 40 MG/0.4 ML SYRINGE SUB-Q (07:30)
[2020-04-10] MEDS: TAMSULOSIN HCL 0.4 MG CAPSULE PO (07:31)
[2020-04-10] MEDS: ESCITALOPRAM OXALATE 10 MG TABLET PO (07:31)
[2020-04-10] MEDS: POTASSIUM CHLORIDE 20 MEQ TABLET.ER PO (07:31)
[2020-04-10] MEDS: DULoxetine HCL 30 MG CAPSULE.DR 90 MG PO (07:31)
[2020-04-10] MEDS: carvediloL 12.5 MG TABLET PO ×2 (07:31→20:56)
[2020-04-10] MEDS: rOPINIRole HCL 0.5 MG TABLET PO ×2 (07:31→17:55)
[2020-04-10] MEDS: busPIRone HCL 10 MG TABLET PO ×3 (07:31→17:55)
[2020-04-10] MEDS: SOTALOL HCL 80 MG TABLET PO (07:32)
[2020-04-10] MEDS: PANTOPRAZOLE 40 MG TABLET PO (07:32)
[2020-04-10] MEDS: lisinopriL 5 MG TABLET PO (07:32)
[2020-04-10] MEDS: oxyCODONE/ACETAMINOPHEN 5-325 MG TABLET 3 TABLET PO ×2 (08:09→16:34)
[2020-04-10] MEDS: FUROSEMIDE 40 MG TABLET PO ×2 (10:28→17:55)
--- NOTE | 2020-04-10 14:24 | PC.NURSE ---
Patient downgraded to medical with telemetry. Report given to Germaine GRACIA. Patient transported via wheelchair with one assist. Medications and chart given to principal secretary.
--- NOTE | 2020-04-10 14:25 | PC.NURSE ---
This patient, Emil Wallis, was received from ICU on 04/10/20 at 1425.Report received from Karl GRACIA. Patient/family oriented to unit policies and routines
--- NOTE | 2020-04-10 15:08 | PM.IMPN ---
Progress Note: A&P Assessment and Plan (1) Near syncope: Code(s): R55 - Syncope and collapse Status: Acute Assessment and Plan: It sounds as though the patient had a near syncopal episode on the toilet today, possibly vasovagal response. Given reports of bradycardia when trying to eat dinner this evening, he will be monitored on telemetry to rule out cardiac dysrhythmia. Monitor orthostatic vital signs Q shift initiate fall precautions. PT/OT when feeling better. ___04/10/20 15:08 04/10/20 15:08 patient is 69-year-old male recently diagnosed with COVID-19 and with admitted in the hospital patient was started on remdesivir as well as dexamethasone however patient did not complete the course as he was feeling better and was discharged home, since then patient has been tired fatigue and coughing, patient's symptoms were progressive getting worse he has also had overload stool and today while on toilet slumped over and patient was brought to emergency department for further evaluation, patient still is quite tired and fatigue, patient is having loose stool most likely patient is dehydrated and had a syncopal episode, patient blood pressure is soft, will hold patient Lasix, will gently hydrate the will monitor is patient clinical there is also concern the patient has secondary bacterial infection being treated with the Rocephin and doxycycline will continue to monitor, symptoms improve will have a PT OT evaluate the patient patient sitting in the chair I saw the patient outside is his room, call him on the phone but patient did not pick it up, spoke with nursing staff patient is doing little better. will move the patient out of ICU to medical floor on tele. (2) Pneumonia: Code(s): J18.9 - Pneumonia, unspecified organism Status: Acute Assessment and Plan: He was diagnosed with COVID on 03/31/2020, but given increase in white blood cell count and elevated lactic acid level he may have superimposed pneumonia. As such she has been started on ceftriaxone and doxycycline. Consider vancomycin if no improvement. (3) Sepsis: Code(s): A41.9 - Sepsis, unspecified organism Status: Acute Assessment and Plan: Present on admission and supported by leukocytosis and elevated lactic acid level. He received cautious IV fluid rehydration, with improvement in his lactic acid level. Blood cultures have been obtained and are pending. (4) COVID-19: Code(s): U07.1 - COVID-19 Status: Acute Assessment and Plan: He was initially diagnosed with COVID-19 on 03/31/2020. He completed a course of dexamethasone, and received remdesivir during his previous hospitalization but not a full course. At this time he is greater than 10 days out from symptoms, and we will not start any new medications. Continue isolation precautions. (5) Paroxysmal atrial fibrillation: Code(s): I48.0 - Paroxysmal atrial fibrillation Status: Chronic Assessment and Plan: He is currently in a sinus rhythm with occasional atrial ectopy. No longer on long-term anticoagulation for unclear reasons. He is on carvedilol and sotalol, which I will hold at this late hour. 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 Sue. (6) Congestive heart failure: Code(s): I50.9 - Heart failure, unspecified Status: Acute Assessment and Plan: Diastolic congestive heart failure appears clinically compensated, if not a bit dry. Monitor volume status closely with cautiously hydrating. [address]
[2020-04-11] VITALS (17 sets, daily range): BP systolic 103–146; BP diastolic 43–126; PULSE 72–110; RESP 16–20; TEMP 36.6–39.4; O2SAT 70–95
[2020-04-11 06:19] LABS: Hematocrit 38.2 % (42.0-52.0); Hemoglobin 12.6 g/dL (14.0-18.0); Mean Corpuscular Hemoglobin 29.9 pg (26-34); Mean Corpuscular Volume 90.7 fl (80-100); Mean Platelet Volume 11.2 fl (7.4-10.4); Platelet Count Result 184 k/mm3 (150-375); Red Blood Count 4.21 M/mm3 (4.6-6.20); Red Cell Distribution Width 16.4 % (11.5-14.5); White Blood Count 12.3 K/mm3 (4.5-10.0)
[2020-04-11 06:31] LABS: Anion Gap 9 mmol/L (8-16); Blood Urea Nitrogen 26 mg/dL (9-20); Calcium 8.9 mg/dL (8.4-10.2); Carbon Dioxide 23 mmol/L (22-30); Chloride 101 mmol/L (98-107); Estimated CRCL calculation 58 ml/min; Estimated Glomerular Filt Rate 50; Glucose 123 mg/dL (75-110); Potassium 3.4 mmol/L (3.4-5.0); Sodium 133 mmol/L (137-145)
[2020-04-11] MEDS: GABAPENTIN 100 MG CAPSULE PO ×3 (08:27→17:20)
[2020-04-11] MEDS: ESCITALOPRAM OXALATE 10 MG TABLET PO (08:27)
[2020-04-11] MEDS: busPIRone HCL 10 MG TABLET PO ×3 (08:27→17:20)
[2020-04-11] MEDS: ENOXAPARIN 40 MG/0.4 ML SYRINGE SUB-Q (08:27)
[2020-04-11] MEDS: carvediloL 12.5 MG TABLET PO ×2 (08:28→20:06)
[2020-04-11] MEDS: METOCLOPRAMIDE HCL 10 MG TABLET PO (08:32)
[2020-04-11] MEDS: rOPINIRole HCL 0.5 MG TABLET PO ×2 (08:32→17:21)
[2020-04-11] MEDS: TAMSULOSIN HCL 0.4 MG CAPSULE PO (08:32)
[2020-04-11] MEDS: DULoxetine HCL 30 MG CAPSULE.DR 90 MG PO (08:32)
[2020-04-11] MEDS: POTASSIUM CHLORIDE 20 MEQ TABLET.ER PO (08:33)
[2020-04-11] MEDS: PANTOPRAZOLE 40 MG TABLET PO (08:33)
[2020-04-11] MEDS: SOTALOL HCL 80 MG TABLET PO (08:33)
[2020-04-11] MEDS: lisinopriL 5 MG TABLET PO (08:34)
[2020-04-11] MEDS: ASPIRIN 81 MG ENTERIC TABLET PO (08:34)
[2020-04-11] MEDS: oxyCODONE/ACETAMINOPHEN 5-325 MG TABLET 3 TABLET PO ×2 (08:38→14:41)
[2020-04-11] MEDS: polyethylene glycoL 3350 17 GM POWD.PACK PO (10:40)
[2020-04-11] MEDS: FUROSEMIDE 40 MG TABLET PO ×2 (10:40→17:20)
--- NOTE | 2020-04-11 15:16 | P.PNIM_ITS ---
Progress Note: A&P Assessment and Plan (1) Near syncope: Code(s): R55 - Syncope and collapse Status: Resolved Assessment and Plan: * possible secondary to infection (2) Pneumonia: Code(s): J18.9 - Pneumonia, unspecified organism Status: Acute Assessment and Plan: * He was diagnosed with COVID on 03/31/2020, but given increase in white blood cell count and elevated lactic acid level he may have superimposed pneumonia. * As such she has been started on ceftriaxone and doxycycline iv, cxr on 03/31 cf with recent cxr. * recent cxr shows pneumonia (3) Sepsis: Code(s): A41.9 - Sepsis, unspecified organism Status: Acute Assessment and Plan: * Present on admission and supported by leukocytosis and elevated lactic acid level. * Hydrate pt slowly (4) COVID-19: Code(s): U07.1 - COVID-19 Status: Acute Assessment and Plan: * He was initially diagnosed with COVID-19 on 03/31/2020. * He completed a course of dexamethasone, and received remdesivir during his previous hospitalization but not a full course. * on iv doxycycline and iv rocephin * Continue isolation precautions. (5) Paroxysmal atrial fibrillation: Code(s): I48.0 - Paroxysmal atrial fibrillation Status: Chronic Assessment and Plan: * He is currently in a sinus rhythm with occasional atrial ectopy. * No longer on long-term anticoagulation for unclear reasons. * He is on carvedilol and sotalol, continbue telemetry (6) Congestive heart failure: Code(s): I50.9 - Heart failure, unspecified Status: Acute Assessment and Plan: * Diastolic congestive heart failure appears clinically compensated, (7) Elevated troponin: Code(s): R79.89 - Other specified abnormal findings of blood chemistry Status: Acute Assessment and Plan: * He is not having any chest pain (8) Nausea: Code(s): R11.0 - Nausea Status: Acute Assessment and Plan: * Use metoclopramide as needed. * Subjective Date/time seen: 04/11/20 15:16 Interval history: 71-year-old male with coronary artery disease status, congestive heart failure, atrial fibrillation, obstructive sleep apnea, chronic kidney disease, hypertension, and renal cell carcinoma who presented to the emergency department earlier today via EMS from home for evaluation of generalized weakness and confusion. long discussion with patient , pt had surgery mar 14 for renal carcinoma was diagnosed with covid 04/01. was in [place] then. did not feel well at home was dizzy, weak confused having accidents on the floor so was readmitted in apr 04. Pt was in icu yesterday on the floor being monitored pt needing oxygen otherwise his vitals are stable. Pt in NSR now Review of Systems Review of Systems: ROS unobtainable: Yes other (tired, coughing weak sleepy ) Exam Narrative: Exam Narrative: Temp Pulse Resp BP Pulse Ox
--- NOTE | 2020-04-11 15:16 | PM.IMPN ---
Progress Note: A&P Assessment and Plan (1) Near syncope: Code(s): R55 - Syncope and collapse Status: Resolved Assessment and Plan: possible secondary to infection (2) Pneumonia: Code(s): J18.9 - Pneumonia, unspecified organism Status: Acute Assessment and Plan: He was diagnosed with COVID on 03/31/2020, but given increase in white blood cell count and elevated lactic acid level he may have superimposed pneumonia. As such she has been started on ceftriaxone and doxycycline iv, cxr on 03/31 cf with recent cxr. recent cxr shows pneumonia (3) Sepsis: Code(s): A41.9 - Sepsis, unspecified organism Status: Acute Assessment and Plan: Present on admission and supported by leukocytosis and elevated lactic acid level. Hydrate pt slowly (4) COVID-19: Code(s): U07.1 - COVID-19 Status: Acute Assessment and Plan: He was initially diagnosed with COVID-19 on 03/31/2020. He completed a course of dexamethasone, and received remdesivir during his previous hospitalization but not a full course. on iv doxycycline and iv rocephin Continue isolation precautions. (5) Paroxysmal atrial fibrillation: Code(s): I48.0 - Paroxysmal atrial fibrillation Status: Chronic Assessment and Plan: He is currently in a sinus rhythm with occasional atrial ectopy. No longer on long-term anticoagulation for unclear reasons. He is on carvedilol and sotalol, continbue telemetry (6) Congestive heart failure: Code(s): I50.9 - Heart failure, unspecified Status: Acute Assessment and Plan: Diastolic congestive heart failure appears clinically compensated, (7) Elevated troponin: Code(s): R79.89 - Other specified abnormal findings of blood chemistry Status: Acute Assessment and Plan: He is not having any chest pain (8) Nausea: Code(s): R11.0 - Nausea Status: Acute Assessment and Plan: Use metoclopramide as needed. Subjective Date/time seen: 04/11/20 15:16 Interval history: 71-year-old male with coronary artery disease status, congestive heart failure, atrial fibrillation, obstructive sleep apnea, chronic kidney disease, hypertension, and renal cell carcinoma who presented to the emergency department earlier today via EMS from home for evaluation of generalized weakness and confusion. long discussion with patient , pt had surgery mar 14 for renal carcinoma was diagnosed with covid 04/01. was in [place] then. did not feel well at home was dizzy, weak confused having accidents on the floor so was readmitted in apr 04. Pt was in icu yesterday on the floor being monitored pt needing oxygen otherwise his vitals are stable. Pt in NSR now Review of Systems Review of Systems: ROS unobtainable: Yes other (tired, coughing weak sleepy ) Exam Narrative: Exam Narrative: Temp Pulse Resp BP Pulse Ox 36.6 C 75 18 103/43 L 92 04/11/20 17:22 04/11/20 16:00 04/11/20 16:00 04/11/20 16:00 04/11/20 16:00 pt is elderly man chronically ill appearing comfortable on 2 liters of oxygen sleeping in his room Objective Data Vital Signs Vital Signs: Vital Signs - 24 hr 04/10/20 16:00 04/10/20 20:00 04/10/20 20:56 Temperature 37.3 C 37.6 C Pulse Rate 72 96 86 Respiratory Rate 22 H 20 Blood Pressure 139/84 135/85 Pulse Oximetry 93 90
[2020-04-11] MEDS: DOXYCYCLINE HYCLATE 100 MG TABLET PO (20:06)
--- NOTE | 2020-04-11 22:13 | PCRCNOTE ---
Went to check pt O2 pt was on 2L NC spo2 70% increased NC to 6L pt still low in the 80's spo2. Called RN to come and look at pt placed on a NRB still unable to get a true reading of SPO2 got an order for an ABG and placed pt on HHT at 45L flow and 75% spo2.
[2020-04-11 22:19] LABS: Base Excess ABG -3.5 mEq/l (+/-2.0); Carboxyhemoglobin 0.4 % THb (0-2.0); Fractional Inspired Oxygen 75 %; Methemoglobin ABG 0.3 %THb (0-1.5); Oxygen Content ABG 17.6 %vol (16.0-22.0); Oxygen Saturation ABG 98.6 % (95.0-100.0); PCO2 ABG 27.5 mmHg (35.0-45.0); PO2 ABG 122.5 mmHg (80.0-100.0); PO2 FiO2 Ratio Arterial Blood 1.63 %; Reduced Hemoglobin 2.3 %THb (0-5.0); Total Hemoglobin 12.8 g/dL (12.0-18.0); pH ABG 7.458 (7.350-7.450)
[2020-04-11 22:21] LABS: Device HIGH FLOW NASAL CANN; Modified Allen's Test Pass; Site Drawn RIGHT RADIAL
[2020-04-12] VITALS (22 sets, daily range): BP systolic 83–152; BP diastolic 51–108; PULSE 61–107; RESP 16–32; TEMP 37.2–39.5; O2SAT 91–98
[2020-04-12] MEDS: ACETAMINOPHEN 325 MG TABLET 650 MG PO ×2 (00:37→08:10)
[2020-04-12] MEDS: LEVALBUTEROL HFA (*SP) 15 GM INHALER 2 PUFF INHALATION ×2 (02:03→20:19)
[2020-04-12] MEDS: DOXYCYCLINE HYCLATE 100 MG TABLET PO (05:18)
[2020-04-12 06:02] LABS: Hematocrit 34.6 % (42.0-52.0); Hemoglobin 11.4 g/dL (14.0-18.0); Mean Corpuscular HGB Conc 32.9 g/dl (32-36); Mean Corpuscular Hemoglobin 29.8 pg (26-34); Mean Corpuscular Volume 90.6 fl (80-100); Mean Platelet Volume 10.4 fl (7.4-10.4); Platelet Count Result 171 k/mm3 (150-375); Red Blood Count 3.82 M/mm3 (4.6-6.20); Red Cell Distribution Width 16.2 % (11.5-14.5); White Blood Count 11.2 K/mm3 (4.5-10.0)
[2020-04-12 06:14] LABS: Anion Gap 9 mmol/L (8-16); Blood Urea Nitrogen 43 mg/dL (9-20); Calcium 8.6 mg/dL (8.4-10.2); Carbon Dioxide 25 mmol/L (22-30); Chloride 96 mmol/L (98-107); Estimated CRCL calculation 34 ml/min; Estimated Glomerular Filt Rate 27; Glucose 93 mg/dL (75-110); Potassium 3.7 mmol/L (3.4-5.0); Sodium 130 mmol/L (137-145)
--- NOTE | 2020-04-12 07:39 | PM.IMPN ---
Progress Note: A&P Assessment and Plan (1) Acute hypoxemic respiratory failure: Code(s): J96.01 - Acute respiratory failure with hypoxia Status: Acute Assessment and Plan: Due to covid 19 , chest x ray showing patchy infiltrates. On high flow oxygen. (2) Pneumonia: Code(s): J18.9 - Pneumonia, unspecified organism Status: Acute Assessment and Plan: He was diagnosed with COVID on 03/31/2020 He has been started on ceftriaxone and doxycycline for possible superimposed PNA. (3) COVID-19: Code(s): U07.1 - COVID-19 Status: Acute Assessment and Plan: Currently requiring high flow oxygen to sustain saturation above 90%, we will transfer him to ICU, Dw critical care physician. He completed a course of dexamethasone, and received remdesivir during his previous hospitalization but not a full course. Will send inflammatory markers, d dimer to see whether or not he needs a higher dose of lovenox. Continue isolation precautions. (4) Paroxysmal atrial fibrillation: Code(s): I48.0 - Paroxysmal atrial fibrillation Status: Chronic Assessment and Plan: He is currently in a sinus rhythm with occasional atrial ectopy. No longer on long-term anticoagulation for unclear reasons. He is on carvedilol and sotalol, continbue telemetry (5) Congestive heart failure: Code(s): I50.9 - Heart failure, unspecified Status: Acute Assessment and Plan: Diastolic congestive heart failure appears clinically compensated, (6) Elevated troponin: Code(s): R79.89 - Other specified abnormal findings of blood chemistry Status: Acute Assessment and Plan: Mildly elevated on admission likely demand ischemia from PNA, resp distress. Subjective Date/time seen: Pt seen and examined, he was placed on high flow oxygen 60% and feels more comfortable now however he still SOB and gets dyspneic while talking. 04/12/20 07:39 Exam Const: General: no acute distress Neck: Neck: supple and no JVD Resp: Auscultation: crackles and diminished lung sounds Other: Dyspnea when speaking in full sentences. Cardio: Rate: regular rate Rhythm: regular rhythm GI: Auscultation: normal bowel sounds Skin: General skin exam: no rashes or lesions noted Neuro: Speech: normal speech Motor exam (neuro): Normal motor muscle tone present throughout Extrem: General: normal to inspection Other: No edema Objective Data Vital Signs Vital Signs: Vital Signs - 24 hr 04/11/20 08:00 04/11/20 08:25 04/11/20 08:28 Temperature 99.5 F Pulse Rate 99 72 72 Respiratory Rate 16 Blood Pressure 107/95 H Pulse Oximetry 88 L 04/11/20 08:30 04/11/20 08:33 04/11/20 10:16 Temperature Pulse Rate 72 Respiratory Rate Blood Pressure Pulse Oximetry 91 92 04/11/20 12:00 04/11/20 12:50 04/11/20 16:00 Temperature 98.4 F 102.9 F H Pulse Rate 77 77 75 Respiratory Rate 16 18 Blood Pressure 144/126 H 103/43 L Pulse Oximetry 95 92 04/11/20 17:22 04/11/20 20:00 04/11/20 20:06 Temperature 98 F 98.3 F Pulse Rate 72 86 Respiratory Rate 20 Blood Pressure 105/69 Pulse Oximetry 92 04/11/20 22:12 04/11/20 23:15 04/11/20 23:50 Temperature Pulse Rate 81 82 Respiratory Rate Blood Pressure Pulse Oximetry 70 L 95 88 L 04/12/20 00:00 04/12/20 00:37 04/12/20 01:37 Temperature 103.1 F H 103.1 F H 99.5 F Pulse Rate 81 Respiratory Rate 27 H Blood Pressure 123/82 Pulse Oximetry 96 04/12/20 01:51 04/12/20 02:10 04/12/20 02:14 Temperature 99.2 F Pulse Rate 88 75 Respiratory Rate 28 H 28 H Blood Pressure Pulse Oximetry 92 04/12/20
[2020-04-12] MEDS: GABAPENTIN 100 MG CAPSULE PO ×2 (08:04→16:54)
[2020-04-12] MEDS: lisinopriL 10 MG TABLET PO (08:05)
[2020-04-12] MEDS: busPIRone HCL 10 MG TABLET PO ×3 (08:05→16:57)
[2020-04-12] MEDS: ASPIRIN 81 MG ENTERIC TABLET PO (08:05)
[2020-04-12] MEDS: TAMSULOSIN HCL 0.4 MG CAPSULE PO (08:05)
[2020-04-12] MEDS: ESCITALOPRAM OXALATE 10 MG TABLET PO (08:05)
[2020-04-12] MEDS: POTASSIUM CHLORIDE 20 MEQ TABLET.ER PO (08:05)
[2020-04-12] MEDS: FUROSEMIDE 40 MG TABLET PO (08:05)
[2020-04-12] MEDS: rOPINIRole HCL 0.5 MG TABLET PO ×2 (08:05→16:57)
[2020-04-12] MEDS: METOCLOPRAMIDE HCL 10 MG TABLET PO (08:05)
[2020-04-12] MEDS: ALPRAZolam 0.5 MG TABLET PO (08:06)
[2020-04-12] MEDS: PANTOPRAZOLE 40 MG TABLET PO (08:06)
[2020-04-12] MEDS: carvediloL 12.5 MG TABLET PO (08:06)
[2020-04-12] MEDS: DULoxetine HCL 30 MG CAPSULE.DR 90 MG PO (08:06)
[2020-04-12] MEDS: SOTALOL HCL 80 MG TABLET PO (08:07)
[2020-04-12 08:47] LABS: Lactate Dehydrogenase 611 U/L (313-618)
[2020-04-12 09:23] LABS: CRP 35.1 mg/dL (<1.0)
--- NOTE | 2020-04-12 10:17 | PC.NURSE ---
Pt was transferred to ICU 1. Pt was on Air Vo at 40L and 60% humidified. Pt's family has been notified.
--- NOTE | 2020-04-12 11:36 | WPDCNINT ---
Assessment and Plan Assessment and plan (1) Acute hypoxemic respiratory failure: Code(s): J96.01 - Acute respiratory failure with hypoxia Status: Acute Assessment and Plan: acute hypoxic make respiratory failure likely secondary to COVID-19, superimposed bacterial pneumonia given patient is febrile with a T-max of 103.1?, elevated WBC count, significantly elevated CRP - patient with ceftriaxone and doxycycline, will discontinue doxycycline add vancomycin since patient has been recently in the hospital, will obtain repeat blood cultures - obtain sputum culture - continue high-flow therapy and titrate FiO2 to maintain O2 sats greater than 92% - (2) Pneumonia: Code(s): J18.9 - Pneumonia, unspecified organism Status: Acute Assessment and Plan: chest x-ray shows worsening patchy infiltrates bilaterally could be secondary to COVID-19 and/or superimposed bacterial pneumonia - continue treatment as above (3) Congestive heart failure: Code(s): I50.9 - Heart failure, unspecified Status: Acute Assessment and Plan: history of congestive heart failure - patient on carvedilol, furosemide, sotalol, lisinopril. Currently holding as blood pressures are borderline, who will hold lisinopril due to acute on chronic kidney disease - 2D echo on 11/22/2019 1. Left ventricular chamber dimension is normal. 2. Left ventricular systolic function is normal, estimated at 55-60%. 3. Left atrial chamber dimension is moderately enlarged. 4. There is mild aortic valve sclerosis. 5. There is trace mitral valve regurgitation. 6. 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 7. Compared to the prior exam from February of 2019 there is no apparent difference. Mitral valve repair continues to be nicely intact. 8. There is some hypokinesis of the inferior segment. (4) CKD (chronic kidney disease) stage 3, GFR 30-59 ml/min: Code(s): N18.3 - Chronic kidney disease, stage 3 (moderate) Status: Chronic Assessment and Plan: acute on chronic kidney disease with worsening creatinine and since admission - according the records and admission notes, patient had decreased p.o. intake, diarrhea, could be prerenal - will obtain urine lytes, renal ultrasound, patient also had history of renal cell carcinoma with partial right nephrectomy at [facility] on 03/14/2020 - will consult nephrology - continue to monitor urine output, renal function electrolytes (5) COVID-19: Code(s): U07.1 - COVID-19 Status: Acute Assessment and Plan: patient with positive COVID-19 - status post dexamethasone x10 days - patient did get a few doses of Remdesivir before he was discharged on his last admission, did not complete the full 5 day course - infectious disease team has been consulted (6) Essential hypertension: Code(s): I10 - Essential (primary) hypertension Status: Chronic Assessment and Plan: blood pressures have been borderline, patient did receive lisinopril, Coreg, Lasix, sotalol this morning. Will hold medications for now especially lisinopril and Lasix due to acute on chronic kidney disease. (7) DVT prophylaxis: Code(s): Z29.9 - Encounter for prophylactic measures, unspecified Status: Acute Assessment and Plan: DVT prophylaxis; Lovenox Additional Plan discussed with patient updated with his condition and plan of care. Also discussed with patient's and updated he. I answered all questions - PICC line to be inserted as patient has no venous access, bedside RN multiple times to place a peripheral IV, were unsuccessful. code status: Full code critical care time spent: 47 minutes Due to a high probability of clinically significant, life threatening deterioration, the patient required my highest level of preparedness to intervene emergently and I personally spent this critical care time direct
--- NOTE | 2020-04-12 12:52 | WPDINFPN2 ---
Progress Note: A&P Assessment and Plan (1) COVID-19: Code(s): U07.1 - COVID-19 Status: Acute Assessment and Plan: 1. Covid 19 viral pneumonia, treated incompletely but no benefit to resuming remdesivir 2. Worsened lung infiltrates with fever, suspect viral but bacterial cause possible REC Ctx #3, Vanc #1, cultures in process, and get MRSA screen also Subjective Date/time seen: 04/12/20 12:52 Objective Data Vital Signs Vital Signs: Vital Signs - 24 hr 04/11/20 16:00 04/11/20 17:22 04/11/20 20:00 Temperature 39.4 C H 36.6 C 36.8 C Pulse Rate 75 72 Respiratory Rate 18 20 Blood Pressure 103/43 L 105/69 Pulse Oximetry 92 92 04/11/20 20:06 04/11/20 22:12 04/11/20 23:15 Temperature Pulse Rate 86 81 Respiratory Rate Blood Pressure Pulse Oximetry 70 L 95 04/11/20 23:50 04/12/20 00:00 04/12/20 00:37 Temperature 39.5 C H 39.5 C H Pulse Rate 82 81 Respiratory Rate 27 H Blood Pressure 123/82 Pulse Oximetry 88 L 96 04/12/20 01:37 04/12/20 01:51 04/12/20 02:10 Temperature 37.5 C 37.3 C Pulse Rate 88 Respiratory Rate 28 H Blood Pressure Pulse Oximetry 04/12/20 02:14 04/12/20 04:00 04/12/20 08:00 Temperature 37.7 C H 38.9 C H Pulse Rate 75 78 107 H Respiratory Rate 28 H 24 H 18 Blood Pressure 116/62 121/80 Pulse Oximetry 92 98 93 04/12/20 08:10 04/12/20 09:45 04/12/20 09:51 Temperature 38.9 C H 38.0 C H Pulse Rate 78 Respiratory Rate 27 H Blood Pressure 83/62 L Pulse Oximetry 92 91 04/12/20 10:00 04/12/20 10:37 04/12/20 10:51 Temperature Pulse Rate 77 72 74 Respiratory Rate 27 H 24 H 25 H Blood Pressure 84/51 L 146/108 H 111/58 L Pulse Oximetry 95 95 93 Intake/Output Intake/Output: Intake & Output 09/06/20 04/10/20 04/11/20 04/12/20 23:59 23:59 23:59 23:59 Intake Total 600 1090 2200 570 Output Total 542 272 1183 500 Balance 854 189 5223 70 Meds/Results Medications: Active Medications Generic Name Dose Route Start Last Admin Trade Name Freq PRN Reason Stop Dose Admin Acetaminophen 650 mg 04/10/20 00:49 04/12/20 08:10 Tylenol Tablet PO 650 mg Q4H PRN Administration Mild Pain (1-3) Or Fever Alprazolam 0.5 mg 04/10/20 00:49 04/12/20 08:06 Xanax PO 0.5 mg Q8H PRN Administration Anxiety Aspirin 81 mg 04/10/20 09:00 04/12/20 08:05 Aspirin Ec PO 81 mg DAILY JESUS Administration Buspirone HCl 10 mg 04/10/20 09:00 04/12/20 08:05 Buspar PO 10 mg TID JESUS Administration Carvedilol 12.5 mg 04/10/20 09:00 04/12/20 08:06 Coreg PO 12.5 mg Q12HR JESUS Administration Duloxetine HCl 90 mg 04/10/20 09:00 04/12/20 08:06 Cymbalta PO 90 mg DAILY JESUS Administration Enoxaparin Sodium 40 mg 04/12/20 09:00 Lovenox SUB-Q DAILY JESUS Escitalopram Oxalate 10 mg 04/10/20 09:00 04/12/20 08:05 Lexapro PO 10 mg DAILY JESUS Administration Furosemide 40 mg 04/10/20 09:00 04/12/20 08:05 Lasix Tablet PO 40 mg BID JESUS Administration Gabapentin 100 mg 04/10/20 09:00 04/12/20 08:04 Neurontin PO 100 mg TID JESUS Administration Ceftriaxone Sodium/Dextrose 1 gm in 50 mls @ 100 mls/hr 04/10/20 01:10 04/11/20 22:14 Rocephin 1 Gm/D5w 50 Ml IVPB Not Given DAILY@2100 JESUS Vancomycin HCl 2,000 mg in 500 mls @ 250 mls/hr 04/12/20 12:00 Vancomycin 2,000 Mg/D5w 500 Ml IVPB Q36H JESUS Levalbuterol HCl 2 puff 04/10/20 00:47 04/12/20 02:03 Xopenex Hfa INHALATION 2 puff Q6HRT PRN Administration Shortness Of Breath Lisinopril 10 mg 04/12/20 09:00 04/12/20 08:05 Prinivil PO 10 mg DAILY JESUS Administration Metoclopramide HCl 10 mg 04/10/20 00:49 04/12/20 08:05 Reglan PO 10 mg QID PRN Administration Nausea Oxycodone/Acetaminophen 3 tablet 04/10/20 07:43 04/11/20 14:41 Percocet 5-325 Mg PO 3 tablet Q6HR PRN Administration Pain Rated 7-10 Pantoprazole Sodium
--- NOTE | 2020-04-12 14:12 | CONS_ITS ---
DATE OF CONSULTATION: 04/12/2020 REASON FOR CONSULTATION: Viral pneumonia. HISTORY OF PRESENT ILLNESS: The patient is a 69-year-old male who began feeling ill with dyspnea and marked fatigue. His also had symptoms compatible with coronavirus and were both tested and found to be positive. He was admitted to this hospital on April 02 and received 3 days of remdesivir and also started on dexamethasone, which he completed on April 11. At his request, he was discharged after receiving 3 days of remdesivir. While at home, he felt well for 2 days, but then worse once again with fatigue and dyspnea. He denies any subjective fever at home. He was readmitted on April 09 and is on high-flow O2. No chest pain. He has minimal white sputum production. He is able to get out of bed only with much difficulty due to myalgias. He did not require any surgical intervention nor intubation nor positive-pressure ventilation. He has had no previous positive or negative tests for coronavirus. His symptom onset overall is now day #12, beginning the day after his test. ALLERGIES: NONE PERTINENT. PRESENT MEDICATIONS: Ceftriaxone day 3. He was also on doxycycline, now discontinued. Vancomycin has been started today. No immunosuppressants. HABITS: Occasional alcohol. No tobacco. PAST MEDICAL AND SURGICAL HISTORY: Bilateral knee replacements, tonsillectomy, spinal surgery, rotator cuff repair, partial nephrectomy on 03/14/2020 for cancer, mitral valve replacement, hernia repair, CABG, cholecystectomy, thoracic aortic aneurysm, spinal stenosis, PAF, DJD, CHI, hypertension, hyperlipidemia, heart failure, CRI stage III, stroke, BPH, anxiety. REVIEW OF SYSTEMS: Nausea, vomiting. 14-point review otherwise negative. FAMILY HISTORY: Not pertinent to his present illness. SOCIAL HISTORY: He lives locally. He is retired, . No family at the bedside presently. PHYSICAL EXAMINATION: GENERAL: This is an elderly male who appears his actual age, mild respiratory distress at rest. VITAL SIGNS: Since readmission, T-max was early this morning at 39.5. Previous hospitalization, he was afebrile on arrival, up to 38.2 later that day. Currently, 111/58, 74, 25, 93% on high-flow O2 estimated at 60%. SKIN: Warm and dry. No rashes. No necrotic lesions. No petechiae. NODES: No cervical adenopathy. EENT: Conjunctivae are clear. The oropharynx, oral mucosa normal. His paranasal sinuses without erythema, edema or tenderness. NECK: There is no thyromegaly, meningismus, mass, deviation. LUNGS: Diminished breath sounds shelter up both lung [place], clear to percussion. Breath sounds are vesicular. No rales or wheezes. CARDIAC: Distant S1, S2. Regular rate and rhythm. Peripheral pulses are 2+ and equal. ABDOMEN: Obese, nontender. No mass. No organomegaly. : Head catheter in place since yesterday, draining clear yellow urine. EXTREMITIES: Venous stasis changes. No clubbing, cyanosis, or edema. MUSCULOSKELETAL: Both knees have no inflammatory findings. RADIOLOGY: I personally reviewed his chest x-rays in recent weeks. He has progressive diffuse lung infiltrates today, worse since the readmission. His original chest x-ray was normal. LABORATORY DATA: White count 11.4, was normal on last admission, is now 11.2; hemoglobin 11.4; platelets are 171. Differential shows a minimal left shift. His blood gases, 7.59, 28, 123 on noted oxygen. He has hyponatremia at 130, BUN 43, creatinine 2.4 up from 1.2. Lactate 2.3. ALT, AST normal. CRP is 35 up from 7. BNP is 1830. His urinalysis with hematuria. No evidence of infection otherwise. Blood cultures from April 01, final no growth. Repeated on the , no growth so far. Urine culture early on the , no growth final.
[2020-04-12 14:55] LABS: Creatinine Urine 194.7 mg/dL
[2020-04-12 14:57] LABS: Sodium Urine Random 27 meq/L
[2020-04-12] MEDS: SODIUM CHLORIDE 0.9% IV 1,000 ML 75 ML IV CONT (16:54)
--- NOTE | 2020-04-12 18:42 | PM.CNNEP ---
Assessment and Plan Assessment and plan (1) MIRNA (acute kidney injury): Code(s): N17.9 - Acute kidney failure, unspecified Status: Acute Assessment and Plan: likely multifactorial: - ATN from relative hypotension and infection (COVID-19 + pneumonia) - prerenal factors (urine lytes support this) - use of diuretics and KAMILLA-I prior to admission - complicated by recent loss of nephron mass (due to right partial nephrectomy) urine lytes noted renal ultrasound still with right renal mass(?) follow I/Os and repeat labs (2) Chronic kidney disease, stage 2 (mild): Code(s): N18.2 - Chronic kidney disease, stage 2 (mild) Status: Acute Assessment and Plan: baseline creatinine around 1.0 - 1.2mg/dl probably due to HTN, vascular disease, and age-related change (3) Acute hypoxemic respiratory failure: Code(s): J96.01 - Acute respiratory failure with hypoxia Status: Acute Assessment and Plan: thought to be due to #3 and #4 on IV antibiotic therapy Infectious Disease recommendations noted supplemental oxygen as needed (4) Pneumonia: Code(s): J18.9 - Pneumonia, unspecified organism Status: Acute Assessment and Plan: on broad spectrum antibiotics follow culture data respiratory support (5) COVID-19: Code(s): U07.1 - COVID-19 Status: Acute Assessment and Plan: completed course of dexamethasone and partial treatment with remdesivir Infectious Disease recommendations noted Will continue to follow. History of Present Illness Reason for Consult Consult date: 04/12/20 Reason for consult: acute renal failure Chief Complaint Chief complaint: Generalized weakness, confusion. History of Present Illness Narrative: The patient is a 69 y/o male with a past medical history as outlined below who presented to [facility] ER with complains of weakness and confusion. It should be noted that the patient was recently hospitalized (04/01/2020 to 04/04/2020) for weakness and COVID-19 viral infection - he completed a course of dexamethasone and partial course of remdesivir. He was doing quite well and was discharged home. Unfortunately, while at home, he became weak again associated with nausea, poor oral intake, diarrhea. He had a near-syncopal episode at home (slumped over while on the toliet) and was brought back to the ER for further evaluation. Work-up and evaluation in the ER demonstrated the patient to be hemodynamically stable but routine testing found an elevated WBC, lactic acidosis, along with mildly elevated troponins as well as a CXR with patchy infiltrates. He as admitted for ongoing evaluation but his respiratory status quickly deteriorated and he required more and more oxygen for his progressive hypoxia which led to transfer to the ICU for closer monitoring. There is concern for possible superimposed bacterial pneumonia on top of his COVID-19 viral infection given his worsening hypoxia and fever (103.1). Renal consultation was requested due to his acute kidney injury/acute renal failure as noted by his trend labs. On admission, his creatinine was within normal limits but has progressively worsened to a creatinine of 2.4 mg/dL. He has no critical electrolyte abnormalities and his volume status appears to be stable but the trend of his creatinine is somewhat concerning particularly given the events that led to his readmission to the hospital. His history is further complicated by the fact that he had a recent right partial nephrectomy for a malignant renal mass. He apparently tolerated this procedure reasonably well and as already mentioned, his renal function was still relatively normal spite this surgical intervention. Currently, the patient is not appear to be in acute distress but is requiring high-flow oxygen therapy to maintain his oxygen saturations. Review of Systems Review
[2020-04-12] MEDS: oxyCODONE/ACETAMINOPHEN 5-325 MG TABLET 3 TABLET PO (19:54)
[2020-04-13] VITALS (28 sets, daily range): BP systolic 77–132; BP diastolic 31–102; PULSE 63–97; RESP 17–90; TEMP 36.6–38.2; O2SAT 18–100
[2020-04-13] MEDS: NOREPINEPHRINE 8 MG/D5W 250 ML 8 MG/250 ML BAG 9.4 MG IV CONT (00:18)
[2020-04-13] MEDS: LEVALBUTEROL HFA (*SP) 15 GM INHALER 2 PUFF INHALATION (02:16)
[2020-04-13 04:05] LABS: Hematocrit 33.1 % (42.0-52.0); Hemoglobin 11.1 g/dL (14.0-18.0); Mean Corpuscular HGB Conc 33.5 g/dl (32-36); Mean Corpuscular Hemoglobin 30.3 pg (26-34); Mean Corpuscular Volume 90.4 fl (80-100); Mean Platelet Volume 10.5 fl (7.4-10.4); Platelet Count Result 162 k/mm3 (150-375); Red Blood Count 3.66 M/mm3 (4.6-6.20); Red Cell Distribution Width 16.1 % (11.5-14.5); White Blood Count 9.4 K/mm3 (4.5-10.0)
[2020-04-13 04:51] LABS: Alveolar/Arterial O2 Gradient 552.9 mmHg; Base Excess ABG -4.3 mEq/l (+/-2.0); Carboxyhemoglobin 0.2 % THb (0-2.0); Fractional Inspired Oxygen 88 %; HCO3 ABG 19.1 mEq/l (22.0-26.0); Oxygen Content ABG 14.8 %vol (16.0-22.0); Oxyhemoglobin 81.6 % THb (90.0-100.0); PCO2 ABG 30.2 mmHg (35.0-45.0); PO2 FiO2 Ratio Arterial Blood 0.49 %; Reduced Hemoglobin 18.2 %THb (0-5.0); Total Hemoglobin 12.9 g/dL (12.0-18.0); pH ABG 7.419 (7.350-7.450)
[2020-04-13 04:52] LABS: Oxygen Saturation ABG 80.9 % (95.0-100.0); PO2 ABG 43.4 mmHg (80.0-100.0)
[2020-04-13 04:53] LABS: Device HIGH FLOW THERAPY; Modified Allen's Test Pass; Site Drawn RIGHT RADIAL
[2020-04-13] MEDS: SODIUM CHLORIDE 0.9% IV 1,000 ML 75 ML IV CONT ×2 (05:11→20:17)
[2020-04-13] MEDS: ACETAMINOPHEN 325 MG TABLET 650 MG PO (05:12)
[2020-04-13 06:10] LABS: Anion Gap 9 mmol/L (8-16); Blood Urea Nitrogen 48 mg/dL (9-20); Calcium 8.3 mg/dL (8.4-10.2); Carbon Dioxide 22 mmol/L (22-30); Chloride 100 mmol/L (98-107); Estimated CRCL calculation 38 ml/min; Estimated Glomerular Filt Rate 30; Glucose 94 mg/dL (75-110); Magnesium 1.7 mg/dL (1.6-2.3); Phosphorus 4.1 mg/dL (2.5-4.5); Potassium 3.7 mmol/L (3.4-5.0); Sodium 131 mmol/L (137-145)
[2020-04-13] MEDS: PANTOPRAZOLE 40 MG TABLET PO (08:18)
[2020-04-13] MEDS: DULoxetine HCL 30 MG CAPSULE.DR 90 MG PO (08:18)
[2020-04-13] MEDS: TAMSULOSIN HCL 0.4 MG CAPSULE PO (08:19)
[2020-04-13] MEDS: busPIRone HCL 10 MG TABLET PO ×2 (08:19→14:53)
[2020-04-13] MEDS: ESCITALOPRAM OXALATE 10 MG TABLET PO (08:19)
[2020-04-13] MEDS: POTASSIUM CHLORIDE 20 MEQ TABLET.ER PO (08:19)
[2020-04-13] MEDS: rOPINIRole HCL 0.5 MG TABLET PO ×2 (08:19→20:17)
[2020-04-13] MEDS: GABAPENTIN 100 MG CAPSULE PO ×2 (08:19→14:53)
[2020-04-13] MEDS: ENOXAPARIN 40 MG/0.4 ML SYRINGE SUB-Q (08:20)
[2020-04-13] MEDS: ASPIRIN 81 MG ENTERIC TABLET PO (08:20)
[2020-04-13] MEDS: polyethylene glycoL 3350 17 GM POWD.PACK PO (08:21)
[2020-04-13] MEDS: oxyCODONE/ACETAMINOPHEN 5-325 MG TABLET 3 TABLET PO ×2 (10:42→20:16)
--- NOTE | 2020-04-13 13:34 | PM.PNNEP ---
Progress Note: A&P Assessment and Plan (1) MIRNA (acute kidney injury): Code(s): N17.9 - Acute kidney failure, unspecified Status: Acute Assessment and Plan: likely multifactorial: - ATN from relative hypotension and infection (COVID-19 + pneumonia) - prerenal factors (urine lytes support this) - use of diuretics and KAMILLA-I prior to admission - complicated by recent loss of nephron mass (due to right partial nephrectomy) urine lytes noted; renal ultrasound still with right renal mass(?) creatinine relatively stable no critical electrolytes adequate urine output follow I/Os and repeat labs (2) Chronic kidney disease, stage 2 (mild): Code(s): N18.2 - Chronic kidney disease, stage 2 (mild) Status: Acute Assessment and Plan: baseline creatinine around 1.0 - 1.2mg/dl probably due to HTN, vascular disease, and age-related change (3) Acute hypoxemic respiratory failure: Code(s): J96.01 - Acute respiratory failure with hypoxia Status: Acute Assessment and Plan: thought to be due to #3 and #4 on IV antibiotic therapy Infectious Disease recommendations noted supplemental oxygen as needed may require intubation/mechanical ventilation (4) Pneumonia: Qualifiers: Pneumonia type: due to unspecified organism Laterality: bilateral Lung location: unspecified part of lung Qualified Code(s): J18.9 - Pneumonia, unspecified organism Code(s): J18.9 - Pneumonia, unspecified organism Status: Acute Assessment and Plan: on broad spectrum antibiotics follow culture data respiratory support (5) COVID-19: Code(s): U07.1 - COVID-19 Status: Acute Assessment and Plan: completed course of dexamethasone and partial treatment with remdesivir Infectious Disease recommendations noted Will continue to follow. Subjective Date/time seen: 04/13/20 13:34 Requiring significant oxygen requirement to maintain oxygen saturations along with increasing shortness of breath; febrile in the last 24 hours but making reasonable urine output; respiratory status seems rather tenuous at this time. Exam Narrative: Exam Narrative: General: Elderly male with high flow oxygen in place Heart: normal S1 and S2; no rub Lungs: coarse with scattered rhonchi Abdomen: soft, nontender, nondistended, positive bowel sounds Extremities: no cyanosis or clubbing; no edema Skin: warm and dry Objective Data Vital Signs Vital Signs: Vital Signs Temp Pulse Resp BP Pulse Ox 09/10/20 12:00 38.2 C H 78 26 H 100/55 L 100 04/13/20 10:00 84 31 H 126/102 H 99 04/13/20 08:00 38.0 C H 74 22 H 119/64 94 04/13/20 06:04 91 124/81 04/13/20 06:00 36.6 C 91 19 124/81 94 04/13/20 05:14 82 111/97 H 04/13/20 05:12 37.7 C H 04/13/20 05:04 82 24 H 87 L 04/13/20 05:02 79 29 H 83 L 04/13/20 04:30 85 26 H 103/66 95 04/13/20 04:16 87 132/90 04/13/20 04:00 36.7 C 86 25 H 118/96 H 94 04/13/20 03:57 74 114/95 H 04/13/20 02:18 75 31 H 04/13/20 02:14 74 90 H 18 L 04/13/20 02:00 72 24 H 107/76 89 L 04/13/20 00:20 72 85/57 L 04/13/20 00:18 69 80/58 L 04/13/20 00:00 36.6 C 64 20 77/53 L 97 04/12/20 22:00 37.2 C 66 16 94/67 L 95 04/12/20 20:54 37.2 C 04/12/20 20:20 80 32 H 04/12/20 20:17 87 32 H 98 04/12/20 20:00 38.8 C H 77 22 H 115/80 94 04/12/20 18:00 80 25 H 152/89 H 95 04/12/20 16:00 37.4 C 74 20 139/77 94 Intake/Output Intake/Output: Intake & Output 04/10/20 04/11/20 04/12/20 04/13/20 23:59 23:59 23:59 23:59 Intake Total 1090 2200 1340 1403.7 Output Total 950 1050 1100 800 Balance 140 1150 240 603.7 Meds/Results Medications: Active Medications Generic Name Dose Route Start Last Admin Trade Name Freq PRN Reason Stop Dose Admin Acetaminophen 650
--- NOTE | 2020-04-13 14:09 | WPDINTPN ---
Progress Note: A&P Assessment and Plan (1) Acute hypoxemic respiratory failure: Code(s): J96.01 - Acute respiratory failure with hypoxia Status: Acute Assessment and Plan: acute hypoxic make respiratory failure likely secondary to COVID-19, superimposed bacterial pneumonia given patient is febrile with a T-max of 103.1?, elevated WBC count, significantly elevated CRP - patient with ceftriaxone and vancomycin since patient has been recently in the hospital, - blood and sputum cultures are pending - continue high-flow therapy and titrate FiO2 to maintain O2 sats greater than 92% - discussed with patient in the room and the per was on the phone regarding intubation if needed, both were agreeable (2) Pneumonia: Qualifiers: Laterality: bilateral Lung location: unspecified part of lung Pneumonia type: due to unspecified organism Qualified Code(s): J18.9 - Pneumonia, unspecified organism Code(s): J18.9 - Pneumonia, unspecified organism Status: Acute Assessment and Plan: chest x-ray shows worsening patchy infiltrates bilaterally could be secondary to COVID-19 and/or superimposed bacterial pneumonia - continue treatment as above (3) Congestive heart failure: Qualifiers: Heart failure chronicity: unspecified Heart failure type: unspecified Qualified Code(s): I50.9 - Heart failure, unspecified Code(s): I50.9 - Heart failure, unspecified Status: Acute Assessment and Plan: history of congestive heart failure - patient on carvedilol, furosemide, sotalol, lisinopril. Currently holding as blood pressures are borderline, who will hold lisinopril due to acute on chronic kidney disease - 2D echo on 11/22/2019 1. Left ventricular chamber dimension is normal. 2. Left ventricular systolic function is normal, estimated at 55-60%. 3. Left atrial chamber dimension is moderately enlarged. 4. There is mild aortic valve sclerosis. 5. There is trace mitral valve regurgitation. 6. 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 7. Compared to the prior exam from February of 2019 there is no apparent difference. Mitral valve repair continues to be nicely intact. 8. There is some hypokinesis of the inferior segment. (4) CKD (chronic kidney disease) stage 3, GFR 30-59 ml/min: Code(s): N18.3 - Chronic kidney disease, stage 3 (moderate) Status: Chronic Assessment and Plan: acute on chronic kidney disease with worsening creatinine and since admission - according the records and admission notes, patient had decreased p.o. intake, diarrhea, could be prerenal - will obtain urine lytes, renal ultrasound, patient also had history of renal cell carcinoma with partial right nephrectomy at [facility] on 03/14/2020 - will consult nephrology - continue to monitor urine output, renal function electrolytes - renal ultrasound 04/12/2020: Right kidney lower pole mass, consistent with renal cell carcinoma. (5) COVID-19: Code(s): U07.1 - COVID-19 Status: Acute Assessment and Plan: patient with positive COVID-19 - status post dexamethasone x10 days - patient did get a few doses of Remdesivir before he was discharged on his last admission, did not complete the full 5 day course - appreciate infectious disease evaluation and recommendation - will monitor laboratory markers (6) Essential hypertension: Code(s): I10 - Essential (primary) hypertension Status: Chronic Assessment and Plan: blood pressures have been borderline, patient did receive lisinopril, Coreg, Lasix, sotalol this morning. Will hold medications for now especially lisinopril and Lasix due to acute on chronic kidney disease. (7) DVT prophylaxis: Code(s): Z29.9 - Encounter for prophylactic measures, unspecified Status: Acute Assessment and Plan: DVT prophylaxis; Lovenox Additional Plan discussed
--- NOTE | 2020-04-13 14:17 | WPDINFPN2 ---
Progress Note: A&P Assessment and Plan (1) COVID-19: Code(s): U07.1 - COVID-19 Status: Acute Assessment and Plan: 1. Covid 19 viral pneumonia, treated incompletely but no benefit to resuming remdesivir 2. Worsened lung infiltrates with fever, suspect viral but bacterial cause possible, still febrile REC Ctx #4, Vanc #2, cultures in process. Subjective Date/time seen: 04/13/20 14:17 Interval history: shooting pain in R leg. Dyspnea on O2 Exam Narrative: Exam Narrative: t max 38.8 Const: Other: appears acutely ill, no resp distress Neck: Neck: supple Resp: Effort & Inspection: normal respiratory effort Auscultation: clear to auscultation bilaterally and diminished lung sounds Cardio: Rate: regular rate Rhythm: regular rhythm Heart sounds: no murmurs and no rubs GI: Inspection: non-distended GI Palp: Yes Soft to palpation, No Tenderness to palpation present (GI) and No Guarding due to palpation present (GI) Urinary Catheter: Urinary Catheter: patent and draining and urine clear Skin: General skin exam: normal color and no rashes or lesions noted Objective Data Vital Signs Vital Signs: Vital Signs - 24 hr 04/12/20 16:00 04/12/20 18:00 04/12/20 20:00 Temperature 37.4 C 38.8 C H Pulse Rate 74 80 77 Respiratory Rate 20 25 H 22 H Blood Pressure 139/77 152/89 H 115/80 Pulse Oximetry 94 95 94 04/12/20 20:17 04/12/20 20:20 04/12/20 20:54 Temperature 37.2 C Pulse Rate 87 80 Respiratory Rate 32 H 32 H Blood Pressure Pulse Oximetry 98 04/12/20 22:00 04/13/20 00:00 04/13/20 00:18 Temperature 37.2 C 36.6 C Pulse Rate 66 64 69 Respiratory Rate 16 20 Blood Pressure 94/67 L 77/53 L 80/58 L Pulse Oximetry 95 97 04/13/20 00:20 04/13/20 02:00 04/13/20 02:14 Temperature Pulse Rate 72 72 74 Respiratory Rate 24 H 90 H Blood Pressure 85/57 L 107/76 Pulse Oximetry 89 L 18 L 04/13/20 02:18 04/13/20 03:57 04/13/20 04:00 Temperature 36.7 C Pulse Rate 75 74 86 Respiratory Rate 31 H 25 H Blood Pressure 114/95 H 118/96 H Pulse Oximetry 94 04/13/20 04:16 04/13/20 04:30 04/13/20 05:02 Temperature Pulse Rate 87 85 79 Respiratory Rate 26 H 29 H Blood Pressure 132/90 103/66 Pulse Oximetry 95 83 L 04/13/20 05:04 04/13/20 05:12 04/13/20 05:14 Temperature 37.7 C H Pulse Rate 82 82 Respiratory Rate 24 H Blood Pressure 111/97 H Pulse Oximetry 87 L 04/13/20 06:00 04/13/20 06:04 04/13/20 08:00 Temperature 36.6 C 38.0 C H Pulse Rate 91 91 74 Respiratory Rate 19 22 H Blood Pressure 124/81 124/81 119/64 Pulse Oximetry 94 94 04/13/20 10:00 04/13/20 12:00 Temperature 38.2 C H Pulse Rate 84 78 Respiratory Rate 31 H 26 H Blood Pressure 126/102 H 100/55 L Pulse Oximetry 99 100 Intake/Output Intake/Output: Intake & Output 04/10/20 04/11/20 04/12/20 04/13/20 23:59 23:59 23:59 23:59 Intake Total 1090 2200 1340 1403.7 Output Total 950 1050 1100 800 Balance 140 1150 240 603.7 Meds/Results Medications: Active Medications Generic Name Dose Route Start Last Admin Trade Name Freq PRN Reason Stop Dose Admin Acetaminophen 650 mg 04/10/20 00:49 04/13/20 05:12 Tylenol Tablet PO 650 mg Q4H PRN Administration Mild Pain (1-3) Or Fever Alprazolam 0.5 mg 04/10/20 00:49 04/12/20 08:06 Xanax PO 0.5 mg Q8H PRN Administration Anxiety Aspirin 81 mg 04/10/20 09:00 04/13/20 08:20 Aspirin Ec PO 81 mg DAILY JESUS Administration Buspirone HCl 10 mg 04/10/20 09:00 04/13/20 08:19 Buspar PO 10 mg TID JESUS Administration Carvedilol 12.5 mg 04/10/20 09:00 04/12/20 08:06 Coreg PO 12.5 mg Q12HR JESUS Administration Duloxetine HCl 90 mg 04/10/20 09:00 04/13/20 08:18 Cymbalta PO 90 mg DAILY JESUS Administration Enoxaparin Sodium 40 mg 04/12/20 09:00 04/13/20 08:20 Lovenox SUB-Q 40 mg DAILY JESUS Administration Escitalopram Oxalate 10 mg 04/10/20 09:00
--- NOTE | 2020-04-13 15:55 | PM.IMPN ---
Progress Note: A&P Assessment and Plan (1) Acute hypoxemic respiratory failure: Code(s): J96.01 - Acute respiratory failure with hypoxia Status: Acute Assessment and Plan: Due to covid 19 and possible concomitant bacterial PNA. On high flow oxygen. (2) Pneumonia: Qualifiers: Pneumonia type: due to unspecified organism Laterality: bilateral Lung location: unspecified part of lung Qualified Code(s): J18.9 - Pneumonia, unspecified organism Code(s): J18.9 - Pneumonia, unspecified organism Status: Acute Assessment and Plan: He was diagnosed with COVID on 03/31/2020 He has been started on ceftriaxone and vancomycin for possible superimposed PNA. Still spiking fever. (3) COVID-19: Code(s): U07.1 - COVID-19 Status: Acute Assessment and Plan: He completed a course of dexamethasone, and received remdesivir during his previous hospitalization but not a full course. Continue isolation precautions. (4) Paroxysmal atrial fibrillation: Code(s): I48.0 - Paroxysmal atrial fibrillation Status: Chronic Assessment and Plan: He is currently in a sinus rhythm with occasional atrial ectopy. No longer on long-term anticoagulation for unclear reasons. His carvedilol and sotalol are on hold due to low Bp (5) Congestive heart failure: Qualifiers: Heart failure type: unspecified Heart failure chronicity: unspecified Qualified Code(s): I50.9 - Heart failure, unspecified Code(s): I50.9 - Heart failure, unspecified Status: Acute Assessment and Plan: Diastolic congestive heart failure appears clinically compensated, (6) Elevated troponin: Code(s): R79.89 - Other specified abnormal findings of blood chemistry Status: Acute Assessment and Plan: Mildly elevated on admission likely demand ischemia from PNA, resp distress. Subjective Date/time seen: Still febrile with a temp of 103.1 F, he does not look in severe distress. 04/13/20 15:55 Exam Const: General: no acute distress Neck: Neck: supple and no JVD Resp: Auscultation: crackles and diminished lung sounds Other: Dyspnea when speaking in full sentences. Cardio: Rate: regular rate Rhythm: regular rhythm GI: Auscultation: normal bowel sounds Neuro: Speech: normal speech Motor exam (neuro): Normal motor muscle tone present throughout Objective Data Vital Signs Vital Signs: Vital Signs - 24 hr 04/12/20 16:00 04/12/20 18:00 04/12/20 20:00 Temperature 99.4 F 101.8 F H Pulse Rate 74 80 77 Respiratory Rate 20 25 H 22 H Blood Pressure 139/77 152/89 H 115/80 Pulse Oximetry 94 95 94 04/12/20 20:17 04/12/20 20:20 04/12/20 20:54 Temperature 98.9 F Pulse Rate 87 80 Respiratory Rate 32 H 32 H Blood Pressure Pulse Oximetry 98 04/12/20 22:00 04/13/20 00:00 04/13/20 00:18 Temperature 98.9 F 98 F Pulse Rate 66 64 69 Respiratory Rate 16 20 Blood Pressure 94/67 L 77/53 L 80/58 L Pulse Oximetry 95 97 04/13/20 00:20 04/13/20 02:00 04/13/20 02:14 Temperature Pulse Rate 72 72 74 Respiratory Rate 24 H 90 H Blood Pressure 85/57 L 107/76 Pulse Oximetry 89 L 18 L 04/13/20 02:18 04/13/20 03:57 04/13/20 04:00 Temperature 98.1 F Pulse Rate 75 74 86 Respiratory Rate 31 H 25 H Blood Pressure 114/95 H 118/96 H Pulse Oximetry 94 04/13/20 04:16 04/13/20 04:30 04/13/20 05:02 Temperature Pulse Rate 87 85 79 Respiratory Rate 26 H 29 H Blood Pressure 132/90 103/66 Pulse Oximetry 95 83 L 04/13/20 05:04 04/13/20 05:12 04/13/20 05:14 Temperature 99.8 F H Pulse Rate 82 82 Respiratory Rate 24 H Blood Pressure 1
[2020-04-14] VITALS (44 sets, daily range): BP systolic 79–133; BP diastolic 65–85; PULSE 74–98; RESP 20–41; TEMP 35.6–38.2; O2SAT 82–100; BMI 40.8
[2020-04-14 04:24] LABS: Hematocrit 33.9 % (42.0-52.0); Hemoglobin 11.1 g/dL (14.0-18.0); Mean Corpuscular HGB Conc 32.7 g/dl (32-36); Mean Corpuscular Hemoglobin 29.6 pg (26-34); Mean Corpuscular Volume 90.4 fl (80-100); Mean Platelet Volume 10.8 fl (7.4-10.4); Platelet Count Result 179 k/mm3 (150-375); Red Blood Count 3.75 M/mm3 (4.6-6.20); Red Cell Distribution Width 16.1 % (11.5-14.5); White Blood Count 8.9 K/mm3 (4.5-10.0)
[2020-04-14 04:38] LABS: Anion Gap 6 mmol/L (8-16); Blood Urea Nitrogen 41 mg/dL (9-20); Calcium 8.1 mg/dL (8.4-10.2); Carbon Dioxide 23 mmol/L (22-30); Chloride 101 mmol/L (98-107); Estimated CRCL calculation 52 ml/min; Estimated Glomerular Filt Rate 43; Glucose 107 mg/dL (75-110); Magnesium 1.7 mg/dL (1.6-2.3); Phosphorus 3.4 mg/dL (2.5-4.5); Potassium 4.4 mmol/L (3.4-5.0); Sodium 130 mmol/L (137-145)
[2020-04-14 05:05] LABS: Alveolar/Arterial O2 Gradient 528.4 mmHg; Base Excess ABG -3.9 mEq/l (+/-2.0); Carboxyhemoglobin 0.3 % THb (0-2.0); Fractional Inspired Oxygen 86 %; Methemoglobin ABG 0.3 %THb (0-1.5); Oxygen Content ABG 14.7 %vol (16.0-22.0); Oxyhemoglobin 85.6 % THb (90.0-100.0); PCO2 ABG 32.7 mmHg (35.0-45.0); PO2 ABG 50.9 mmHg (80.0-100.0); PO2 FiO2 Ratio Arterial Blood 0.59 %; Reduced Hemoglobin 13.8 %THb (0-5.0); Total Hemoglobin 12.2 g/dL (12.0-18.0); pH ABG 7.404 (7.350-7.450)
[2020-04-14 05:09] LABS: Device HIGH FLOW THERAPY; Modified Allen's Test Pass; Oxygen Saturation ABG 86.7 % (95.0-100.0); Site Drawn RIGHT RADIAL
--- NOTE | 2020-04-14 06:00 | PC.NURSE ---
Dr. Sampson notified of patient feeling like he's sob and cannot catch his breath. Patient has NRB on top of high flow at this time. Patient agreeable to intubation. Orders received from Dr. Sampson. Dr. Araiza notified fo intubation.
--- NOTE | 2020-04-14 06:21 | WPDPROCEDUR ---
Procedures Intubation Intubation Date: 04/14/20 Intubation Time: 06:22 A pre-procedural Time-Out was completed immediately before starting the procedure and confirmed: Patient Identification, Site, Procedure, Patient Position and the Availability of Requisite Equipment: Yes Sedative: etomidate Mg given: 15 Paralytic: succinylcholine Mg given: 150 Laryngoscope: fiber optic video scope ET tube size: 8 Tube secured depth (cm): 26 Tube secured location: teeth Tube placement confirmation: visualized tube passing through cords, equal breath sounds bilaterally, no breath sounds over epigastrium and confirmation by capnometry Patient tolerated procedure: well Intubation complications: none Additional comments: Date of service was 04/14/2020 at 06:00 hrs.
[2020-04-14] MEDS: ROCURONIUM BROMIDE 50 MG/5 ML VIAL IV PUSH (06:54)
[2020-04-14] MEDS: RAPID SEQUENCE INTUBATION KIT 1 EACH (06:55)
[2020-04-14] MEDS: ENOXAPARIN 40 MG/0.4 ML SYRINGE SUB-Q ×2 (08:09→20:26)
[2020-04-14] MEDS: GABAPENTIN 100 MG CAPSULE PO (08:09)
[2020-04-14] MEDS: TAMSULOSIN HCL 0.4 MG CAPSULE PO (08:09)
[2020-04-14] MEDS: busPIRone HCL 10 MG TABLET PO (08:09)
[2020-04-14] MEDS: ASPIRIN 81 MG ENTERIC TABLET PO (08:09)
[2020-04-14] MEDS: ESCITALOPRAM OXALATE 10 MG TABLET PO (08:09)
[2020-04-14] MEDS: DULoxetine HCL 30 MG CAPSULE.DR 90 MG PO (08:10)
[2020-04-14] MEDS: PANTOPRAZOLE 40 MG TABLET PO (08:12)
[2020-04-14] MEDS: polyethylene glycoL 3350 17 GM POWD.PACK PO (08:12)
[2020-04-14] MEDS: rOPINIRole HCL 0.5 MG TABLET PO ×2 (08:33→17:09)
[2020-04-14 08:58] LABS: Alveolar/Arterial O2 Gradient 572.5 mmHg; Base Excess ABG -6.1 mEq/l (+/-2.0); Carboxyhemoglobin 0.2 % THb (0-2.0); Fractional Inspired Oxygen 100 %; HCO3 ABG 20.3 mEq/l (22.0-26.0); Methemoglobin ABG 0.3 %THb (0-1.5); Oxygen Saturation ABG 96.6 % (95.0-100.0); Oxyhemoglobin 95.6 % THb (90.0-100.0); PCO2 ABG 43.4 mmHg (35.0-45.0); PO2 ABG 97.1 mmHg (80.0-100.0); PO2 FiO2 Ratio Arterial Blood 0.97 %; Reduced Hemoglobin 3.9 %THb (0-5.0); Total Hemoglobin 12.6 g/dL (12.0-18.0)
[2020-04-14 08:59] LABS: Device VENTILATOR; Modified Allen's Test Pass; Site Drawn RIGHT RADIAL; pH ABG 7.287 (7.350-7.450)
[2020-04-14 09:00] LABS: Arterial Blood Gas PEEP 16 cmH2O; Arterial Blood Gas Tidal Volume 500 ml; Arterial Blood Gas Vent Mode CMV; Arterial Blood Gas Ventilator rate 24 /MIN
--- NOTE | 2020-04-14 09:19 | WPDINTPN ---
Progress Note: A&P Assessment and Plan (1) Acute hypoxemic respiratory failure: Code(s): J96.01 - Acute respiratory failure with hypoxia Status: Acute Assessment and Plan: acute hypoxic make respiratory failure likely secondary to COVID-19, superimposed bacterial pneumonia given patient is febrile with a T-max of 103.1?, elevated WBC count, significantly elevated CRP - patient intubated 04/14/2020, currently on CMV mode of ventilation, peep of 16, 100% FiO2, rate of 24, I to E ratio 1:2 - will repeat ABGs and adjust ventilator - continue ceftriaxone and vancomycin, MRSA positive in the nares - appreciate infectious disease following the patient - blood and urine cultures are negative - sedated with fentanyl and Versed infusion, paralyzed with Nimbex infusion (2) Pneumonia: Qualifiers: Pneumonia type: due to unspecified organism Laterality: bilateral Lung location: unspecified part of lung Qualified Code(s): J18.9 - Pneumonia, unspecified organism Code(s): J18.9 - Pneumonia, unspecified organism Status: Acute Assessment and Plan: chest x-ray shows worsening patchy infiltrates bilaterally could be secondary to COVID-19 and/or superimposed bacterial pneumonia - continue treatment as above (3) Congestive heart failure: Qualifiers: Heart failure type: unspecified Heart failure chronicity: unspecified Qualified Code(s): I50.9 - Heart failure, unspecified Code(s): I50.9 - Heart failure, unspecified Status: Acute Assessment and Plan: history of congestive heart failure - patient on carvedilol, furosemide, sotalol, lisinopril. Currently holding as blood pressures are borderline, who will hold lisinopril due to acute on chronic kidney disease - 2D echo on 11/22/2019 1. Left ventricular chamber dimension is normal. 2. Left ventricular systolic function is normal, estimated at 55-60%. 3. Left atrial chamber dimension is moderately enlarged. 4. There is mild aortic valve sclerosis. 5. There is trace mitral valve regurgitation. 6. 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 7. Compared to the prior exam from February of 2019 there is no apparent difference. Mitral valve repair continues to be nicely intact. 8. There is some hypokinesis of the inferior segment. (4) CKD (chronic kidney disease) stage 3, GFR 30-59 ml/min: Code(s): N18.3 - Chronic kidney disease, stage 3 (moderate) Status: Chronic Assessment and Plan: acute on chronic kidney disease with worsening creatinine and since admission - according the records and admission notes, patient had decreased p.o. intake, diarrhea, could be prerenal - appreciate Nephrology evaluation and recommendations - continue to monitor urine output, renal function electrolytes - renal ultrasound 04/12/2020: Right kidney lower pole mass, consistent with renal cell carcinoma. - creatinine trending down 1.6 this morning ( 2.4 on admission) (5) COVID-19: Code(s): U07.1 - COVID-19 Status: Acute Assessment and Plan: patient with positive COVID-19 - status post dexamethasone x10 days - patient did get a few doses of Remdesivir before he was discharged on his last admission, did not complete the full 5 day course - appreciate infectious disease evaluation and recommendation - will monitor laboratory markers (6) Essential hypertension: Code(s): I10 - Essential (primary) hypertension Status: Chronic Assessment and Plan: blood pressures have been borderline, patient did receive lisinopril, Coreg, Lasix, sotalol this morning. Will hold medications for now especially lisinopril and Lasix due to acute on chronic kidney disease. (7) DVT prophylaxis: Code(s): Z29.9 - Encounter for prophylactic measures, unspecified Status: Acute Assessment and Plan: DVT prophylaxis; will change Lovenox to 40 mg SC q.12 socorro
[2020-04-14] MEDS: SODIUM CHLORIDE 0.9% IV 1,000 ML 75 ML IV CONT (10:23)
[2020-04-14 11:04] LABS: D Dimer 2.86 ug/mL (<0.48)
[2020-04-14 11:08] LABS: Lactate Dehydrogenase 773 U/L (313-618)
[2020-04-14 11:46] LABS: CRP 30.3 mg/dL (<1.0)
--- NOTE | 2020-04-14 12:40 | P.PNNP_ITS ---
Progress Note: A&P Assessment and Plan (1) MIRNA (acute kidney injury): Code(s): N17.9 - Acute kidney failure, unspecified Status: Acute Assessment and Plan: * likely multifactorial: - ATN from relative hypotension and infection (COVID-19 + pneumonia) - prerenal factors (urine lytes support this) - use of diuretics and KAMILLA-I prior to admission - complicated by recent loss of nephron mass (due to right partial nephrectomy) * urine lytes noted; renal ultrasound still with right renal mass(?) * creatinine doing somewhat better * no critical electrolytes * adequate urine output but has decreased * follow I/Os and repeat labs (2) Chronic kidney disease, stage 2 (mild): Code(s): N18.2 - Chronic kidney disease, stage 2 (mild) Status: Acute Assessment and Plan: * baseline creatinine around 1.0 - 1.2mg/dl * probably due to HTN, vascular disease, and age-related change (3) Acute hypoxemic respiratory failure: Code(s): J96.01 - Acute respiratory failure with hypoxia Status: Acute Assessment and Plan: * thought to be due to #3 and #4 * currently intubated andfel * on IV antibiotic therapy * Infectious Disease recommendations noted * supplemental oxygen as needed (4) Pneumonia: Qualifiers: Laterality: bilateral Lung location: unspecified part of lung Pneumonia type: due to unspecified organism Qualified Code(s): J18.9 - Pneumonia, unspecified organism Code(s): J18.9 - Pneumonia, unspecified organism Status: Acute Assessment and Plan: * on broad spectrum antibiotics * follow culture data * respiratory support (5) COVID-19: Code(s): U07.1 - COVID-19 Status: Acute Assessment and Plan: * completed course of dexamethasone and partial treatment with remdesivir * Infectious Disease recommendations noted Will continue to follow. Subjective Date/time seen: 04/14/20 12:40 Intubated and placed on mechanical ventilation earlier this AM due to impending respiratory failure; appears comfortable at this time; no other acute issu es/events overnight; BP a bit low on my visit. Exam Narrative: Exam Narrative: General: Elderly male intubated/sedated Heart: normal S1 and S2; no rub Lungs: coarse with scattered rhonchi present Abdomen: soft, nontender, nondistended, positive bowel sounds Extremities: no cyanosis or clubbing; no edema Skin: warm and intact Objective Data Vital Signs Vital Signs: Vital Signs Temp Pulse Resp BP Pulse Ox 04/14/20 12:00 36.2 C L 97 24 H 82/67 L 100 04/14/20 10:35 96 100 04/14/20 10:00 97 24 H 109/66 100 04/14/20 08:41 90 100 04/14/20 08:00 36.4 C 93 24 H 96/78 L 93 04/14/20 07:28 94 111/72 04/14/20 07:00 86 24 H 99/73 L 86 L 04/14/20 06:30 95 34 H 90/70 L 84 L 04/14/20 06:29 93 39 H 93/65 L 82 L 04/14/20 06:28 88 36 H 04/14/20 06:23 94 41 H 04/14/20 06:22 98 41 H 04/14/20 05:30 87 34 H 133/78 94 04/14/20 05:18 82 32 H 118/84 95 04/14/20 04:24 79 112/80 04/14/20 04:00 36.4 C L 84 23 H 112/83 93 04/14/20 03:03 87 20 94 04/14/20 03:02 82 21 H 104/71 93 04/14/20 02:00 85 26 H 106/69 91 04/14/20 01:30 84 20 105/68 92
--- NOTE | 2020-04-14 12:40 | PM.PNNEP ---
Progress Note: A&P Assessment and Plan (1) MIRNA (acute kidney injury): Code(s): N17.9 - Acute kidney failure, unspecified Status: Acute Assessment and Plan: likely multifactorial: - ATN from relative hypotension and infection (COVID-19 + pneumonia) - prerenal factors (urine lytes support this) - use of diuretics and KAMILLA-I prior to admission - complicated by recent loss of nephron mass (due to right partial nephrectomy) urine lytes noted; renal ultrasound still with right renal mass(?) creatinine doing somewhat better no critical electrolytes adequate urine output but has decreased follow I/Os and repeat labs (2) Chronic kidney disease, stage 2 (mild): Code(s): N18.2 - Chronic kidney disease, stage 2 (mild) Status: Acute Assessment and Plan: baseline creatinine around 1.0 - 1.2mg/dl probably due to HTN, vascular disease, and age-related change (3) Acute hypoxemic respiratory failure: Code(s): J96.01 - Acute respiratory failure with hypoxia Status: Acute Assessment and Plan: thought to be due to #3 and #4 currently intubated andfel on IV antibiotic therapy Infectious Disease recommendations noted supplemental oxygen as needed (4) Pneumonia: Qualifiers: Laterality: bilateral Lung location: unspecified part of lung Pneumonia type: due to unspecified organism Qualified Code(s): J18.9 - Pneumonia, unspecified organism Code(s): J18.9 - Pneumonia, unspecified organism Status: Acute Assessment and Plan: on broad spectrum antibiotics follow culture data respiratory support (5) COVID-19: Code(s): U07.1 - COVID-19 Status: Acute Assessment and Plan: completed course of dexamethasone and partial treatment with remdesivir Infectious Disease recommendations noted Will continue to follow. Subjective Date/time seen: 04/14/20 12:40 Intubated and placed on mechanical ventilation earlier this AM due to impending respiratory failure; appears comfortable at this time; no other acute issues/events overnight; BP a bit low on my visit. Exam Narrative: Exam Narrative: General: Elderly male intubated/sedated Heart: normal S1 and S2; no rub Lungs: coarse with scattered rhonchi present Abdomen: soft, nontender, nondistended, positive bowel sounds Extremities: no cyanosis or clubbing; no edema Skin: warm and intact Objective Data Vital Signs Vital Signs: Vital Signs Temp Pulse Resp BP Pulse Ox 04/14/20 12:00 36.2 C L 97 24 H 82/67 L 100 04/14/20 10:35 96 100 04/14/20 10:00 97 24 H 109/66 100 04/14/20 08:41 90 100 04/14/20 08:00 36.4 C 93 24 H 96/78 L 93 04/14/20 07:28 94 111/72 04/14/20 07:00 86 24 H 99/73 L 86 L 04/14/20 06:30 95 34 H 90/70 L 84 L 04/14/20 06:29 93 39 H 93/65 L 82 L 04/14/20 06:28 88 36 H 04/14/20 06:23 94 41 H 04/14/20 06:22 98 41 H 04/14/20 05:30 87 34 H 133/78 94 04/14/20 05:18 82 32 H 118/84 95 04/14/20 04:24 79 112/80 04/14/20 04:00 36.4 C L 84 23 H 112/83 93 04/14/20 03:03 87 20 94 04/14/20 03:02 82 21 H 104/71 93 04/14/20 02:00 85 26 H 106/69 91 04/14/20 01:30 84 20 105/68 92 04/14/20 00:33 78 28 H 101/68 92 04/14/20 00:22 76 90/66 L 04/14/20 00:20 36.9 C 83 22 H 90/66 L 89 L 04/14/20 00:00 82 21 H 90 04/13/20 23:40 82 24 H 92 04/13/20 23:02 82 21 H 95/65 L 86 L 04/13/20 22:33 84 26 H 90/46 L 97 04/13/20 22:27 86 80/31 L 04/13/20 22:00 88 25 H 79/54 L 96 04/13/20 20:00 37.9 C H 91 30 H 90/73 L 92 04/13/20 18:00 89 27 H 89/69 L 99 04/13/20 16:00 86 24 H 81/60 L 92 04/13/20 14:00 86 34 H 81/56 L 98 Intake/Output Intake/Output: Intake & Output 04/11/20 04/12/20 04/13/20 04/14/20 23:59 23:59 23:59 23:59 Intake Total
[2020-04-14] MEDS: NOREPINEPHRINE 8 MG/D5W 250 ML 8 MG/250 ML BAG 13.1 MG IV CONT (12:59)
--- NOTE | 2020-04-14 13:41 | WPDINFPN2 ---
Progress Note: A&P Assessment and Plan (1) COVID-19: Code(s): U07.1 - COVID-19 Status: Acute Assessment and Plan: 1. Covid 19 viral pneumonia, treated incompletely but no benefit to resuming remdesivir 2. Worsened lung infiltrates with fever, suspect viral but bacterial cause possible. MRSA screen +. 3. Respiratory failure due to above REC Ctx #5, Vanc #3, continue both. Sputum culture ordered post intubation, no result yet. Subjective Date/time seen: 04/14/20 13:41 Interval history: intubated this AM for resp distress, progressive Exam Narrative: Exam Narrative: t max 37.9 Const: General: no acute distress Resp: Auscultation: clear to auscultation bilaterally Cardio: Rate: regular rate Rhythm: regular rhythm Heart sounds: no murmurs GI: Inspection: non-distended Urinary Catheter: Urinary Catheter: patent and draining and urine clear Skin: General skin exam: no rashes or lesions noted Objective Data Vital Signs Vital Signs: Vital Signs - 24 hr 04/13/20 14:00 04/13/20 16:00 04/13/20 18:00 Temperature Pulse Rate 86 86 89 Respiratory Rate 34 H 24 H 27 H Blood Pressure 81/56 L 81/60 L 89/69 L Pulse Oximetry 98 92 99 04/13/20 20:00 04/13/20 22:00 04/13/20 22:27 Temperature 37.9 C H Pulse Rate 91 88 86 Respiratory Rate 30 H 25 H Blood Pressure 90/73 L 79/54 L 80/31 L Pulse Oximetry 92 96 04/13/20 22:33 04/13/20 23:02 04/13/20 23:40 Temperature Pulse Rate 84 82 82 Respiratory Rate 26 H 21 H 24 H Blood Pressure 90/46 L 95/65 L Pulse Oximetry 97 86 L 92 04/14/20 00:00 04/14/20 00:20 04/14/20 00:22 Temperature 36.9 C Pulse Rate 82 83 76 Respiratory Rate 21 H 22 H Blood Pressure 90/66 L 90/66 L Pulse Oximetry 90 89 L 04/14/20 00:33 04/14/20 01:30 04/14/20 02:00 Temperature Pulse Rate 78 84 85 Respiratory Rate 28 H 20 26 H Blood Pressure 101/68 105/68 106/69 Pulse Oximetry 92 92 91 04/14/20 03:02 04/14/20 03:03 04/14/20 04:00 Temperature 36.4 C L Pulse Rate 82 87 84 Respiratory Rate 21 H 20 23 H Blood Pressure 104/71 112/83 Pulse Oximetry 93 94 93 04/14/20 04:24 04/14/20 05:18 04/14/20 05:30 Temperature Pulse Rate 79 82 87 Respiratory Rate 32 H 34 H Blood Pressure 112/80 118/84 133/78 Pulse Oximetry 95 94 04/14/20 06:22 04/14/20 06:23 04/14/20 06:28 Temperature Pulse Rate 98 94 88 Respiratory Rate 41 H 41 H 36 H Blood Pressure Pulse Oximetry 04/14/20 06:29 04/14/20 06:30 04/14/20 07:00 Temperature Pulse Rate 93 95 86 Respiratory Rate 39 H 34 H 24 H Blood Pressure 93/65 L 90/70 L 99/73 L Pulse Oximetry 82 L 84 L 86 L 04/14/20 07:28 04/14/20 08:00 04/14/20 08:41 Temperature 36.4 C Pulse Rate 94 93 90 Respiratory Rate 24 H Blood Pressure 111/72 96/78 L Pulse Oximetry 93 100 04/14/20 10:00 04/14/20 10:35 04/14/20 12:00 Temperature 36.2 C L Pulse Rate 97 96 97 Respiratory Rate 24 H 24 H Blood Pressure 109/66 82/67 L Pulse Oximetry 100 100 100 Intake/Output Intake/Output: Intake & Output 04/11/20 04/12/20 04/13/20 04/14/20 23:59 23:59 23:59 23:59 Intake Total 2200 1340 2813.7 2096.3 Output Total 1050 1100 1800 775 Balance 9411 331 2221.7 1321.3 Meds/Results Medications: Active Medications Generic Name Dose Route Start Last Admin Trade Name Freq PRN Reason Stop Dose Admin Acetaminophen 650 mg 04/10/20 00:49 04/13/20 05:12 Tylenol Tablet PO 650 mg Q4H PRN Administration Mild Pain (1-3) Or Fever Alprazolam 0.5 mg 04/10/20 00:49 04/12/20 08:06 Xanax PO 0.5 mg Q8H PRN Administration Anxiety Aspirin 81 mg 04/10/20 09:00 04/14/20 08:09 Aspirin Ec PO 81 mg DAILY JESUS Administration Buspirone HCl 10 mg 04/10/20 09:00 04/14/20 12:20 Buspar PO Not Given TID JESUS Carvedilol 12.5 mg 04/10/20 09:00 04/12/20 08:06 Coreg PO 12.5 mg Q12HR JESUS Administration Duloxetine HCl 90 mg 04/10/20 09:00
[2020-04-14 13:52] LABS: Alveolar/Arterial O2 Gradient 495.4 mmHg; Base Excess ABG -7.5 mEq/l (+/-2.0); Fractional Inspired Oxygen 100 %; HCO3 ABG 18.1 mEq/l (22.0-26.0); Oxygen Content ABG 17.6 %vol (16.0-22.0); Oxygen Saturation ABG 99.1 % (95.0-100.0); Oxyhemoglobin 97.8 % THb (90.0-100.0); PCO2 ABG 37.2 mmHg (35.0-45.0); PO2 ABG 180.4 mmHg (80.0-100.0); Total Hemoglobin 12.5 g/dL (12.0-18.0); pH ABG 7.306 (7.350-7.450)
[2020-04-14 13:53] LABS: Arterial Blood Gas PEEP 16 cmH2O; Arterial Blood Gas Tidal Volume 500 ml; Arterial Blood Gas Vent Mode CMV; Arterial Blood Gas Ventilator rate 24 /MIN; Device VENTILATOR; Modified Allen's Test Pass; Site Drawn RIGHT RADIAL
--- NOTE | 2020-04-14 15:20 | PM.IMPN ---
Progress Note: A&P Assessment and Plan (1) Acute hypoxemic respiratory failure: Code(s): J96.01 - Acute respiratory failure with hypoxia Status: Acute Assessment and Plan: Due to covid 19 and possible concomitant bacterial PNA. Intubated now, critical care managing vent. (2) Pneumonia: Qualifiers: Pneumonia type: due to unspecified organism Laterality: bilateral Lung location: unspecified part of lung Qualified Code(s): J18.9 - Pneumonia, unspecified organism Code(s): J18.9 - Pneumonia, unspecified organism Status: Acute Assessment and Plan: He was diagnosed with COVID on 03/31/2020 He has been started on ceftriaxone and vancomycin for possible superimposed PNA. (3) COVID-19: Code(s): U07.1 - COVID-19 Status: Acute Assessment and Plan: He completed a course of dexamethasone, and received remdesivir during his previous hospitalization but not a full course. Continue isolation precautions. (4) Paroxysmal atrial fibrillation: Code(s): I48.0 - Paroxysmal atrial fibrillation Status: Chronic Assessment and Plan: He is currently in a sinus rhythm with occasional atrial ectopy. No longer on long-term anticoagulation for unclear reasons. His carvedilol and sotalol are on hold due to low Bp (5) Congestive heart failure: Qualifiers: Heart failure type: unspecified Heart failure chronicity: unspecified Qualified Code(s): I50.9 - Heart failure, unspecified Code(s): I50.9 - Heart failure, unspecified Status: Acute Assessment and Plan: Diastolic congestive heart failure appears clinically compensated, (6) Elevated troponin: Code(s): R79.89 - Other specified abnormal findings of blood chemistry Status: Acute Assessment and Plan: Mildly elevated on admission likely demand ischemia from PNA, resp distress. Subjective Date/time seen: Pt was intubated. 04/14/20 15:20 Exam Const: Other: Intubated, sedated Neck: Neck: no JVD Resp: Auscultation: crackles, rhonchi and diminished lung sounds Cardio: Rate: regular rate Rhythm: regular rhythm Other: No bradycardia or tachycardia GI: Auscultation: normal bowel sounds Neuro: Other: Sedated Objective Data Vital Signs Vital Signs: Vital Signs - 24 hr 04/13/20 16:00 04/13/20 18:00 04/13/20 20:00 Temperature 100.3 F H Pulse Rate 86 89 91 Respiratory Rate 24 H 27 H 30 H Blood Pressure 81/60 L 89/69 L 90/73 L Pulse Oximetry 92 99 92 04/13/20 22:00 04/13/20 22:27 04/13/20 22:33 Temperature Pulse Rate 88 86 84 Respiratory Rate 25 H 26 H Blood Pressure 79/54 L 80/31 L 90/46 L Pulse Oximetry 96 97 04/13/20 23:02 04/13/20 23:40 04/14/20 00:00 Temperature Pulse Rate 82 82 82 Respiratory Rate 21 H 24 H 21 H Blood Pressure 95/65 L Pulse Oximetry 86 L 92 90 04/14/20 00:20 04/14/20 00:22 04/14/20 00:33 Temperature 98.4 F Pulse Rate 83 76 78 Respiratory Rate 22 H 28 H Blood Pressure 90/66 L 90/66 L 101/68 Pulse Oximetry 89 L 92 04/14/20 01:30 04/14/20 02:00 04/14/20 03:02 Temperature Pulse Rate 84 85 82 Respiratory Rate 20 26 H 21 H Blood Pressure 105/68 106/69 104/71 Pulse Oximetry 92 91 93 04/14/20 03:03 04/14/20 04:00 04/14/20 04:24 Temperature 97.5 F L Pulse Rate 87 84 79 Respiratory Rate 20 23 H Blood Pressure 112/83 112/80 Pulse Oximetry 94 93 04/14/20 05:18 04/14/20 05:30 04/14/20 06:22 Temperature Pulse Rate 82 87 98 Respiratory Rate 32 H 34 H 41 H Blood Pressure 118/84 133/78 Pulse Oximetry 95 94 04/14/20 06:23 04/14/20 06:28 04/14/20 06:29 Temperature Pulse Rate
[2020-04-15] VITALS (63 sets, daily range): BP systolic 83–121; BP diastolic 55–82; PULSE 70–99; RESP 16–24; TEMP 36–36.2; O2SAT 96–100
[2020-04-15] MEDS: SODIUM CHLORIDE 0.9% IV 1,000 ML 75 ML IV CONT ×2 (00:50→14:10)
[2020-04-15 03:52] LABS: Alveolar/Arterial O2 Gradient 458.8 mmHg; Base Excess ABG -7.3 mEq/l (+/-2.0); Carboxyhemoglobin 0.3 % THb (0-2.0); Fractional Inspired Oxygen 100 %; HCO3 ABG 20.2 mEq/l (22.0-26.0); Methemoglobin ABG 0.3 %THb (0-1.5); Oxygen Content ABG 16.5 %vol (16.0-22.0); Oxygen Saturation ABG 99.2 % (95.0-100.0); Oxyhemoglobin 97.8 % THb (90.0-100.0); PCO2 ABG 49.4 mmHg (35.0-45.0); PO2 ABG 204.8 mmHg (80.0-100.0); PO2 FiO2 Ratio Arterial Blood 2.05 %; Reduced Hemoglobin 1.6 %THb (0-5.0); Total Hemoglobin 11.7 g/dL (12.0-18.0)
[2020-04-15 03:54] LABS: Arterial Blood Gas PEEP 16 cmH2O; Arterial Blood Gas Tidal Volume 500 ml; Arterial Blood Gas Vent Mode CMV; Arterial Blood Gas Ventilator rate 16 /MIN; Device VENTILATOR; Modified Allen's Test Pass; Site Drawn RIGHT RADIAL
[2020-04-15] MEDS: EPOPROSTENOL SODIUM 0.5 MG VIAL 1 MG INHALATION ×2 (03:59→08:54)
[2020-04-15] MEDS: NOREPINEPHRINE 8 MG/D5W 250 ML 8 MG/250 ML BAG 28.1 MG IV CONT (03:59)
--- NOTE | 2020-04-15 04:17 | PCRCNOTE ---
CALLED TO BEDSIDE FOR SPO2 IN 50'S. PT VENTILATED VIA BVM TO OBTAIN SPO2 AT 94%. RN CALLED DR STALLWORTH AND VENTILATOR CHANGES MADE AND DOCUMENTED. ABG DRAWN AND VENT CHANGES MADE AGAIN - VT 500 R20 +16 FIO2 80%. FLOLAN INITIATED AT 0359.
[2020-04-15 04:20] LABS: Hematocrit 32.6 % (42.0-52.0); Hemoglobin 10.8 g/dL (14.0-18.0); Mean Corpuscular HGB Conc 33.1 g/dl (32-36); Mean Corpuscular Hemoglobin 30.2 pg (26-34); Mean Corpuscular Volume 91.1 fl (80-100); Mean Platelet Volume 10.5 fl (7.4-10.4); Platelet Count Result 195 k/mm3 (150-375); Red Blood Count 3.58 M/mm3 (4.6-6.20); Red Cell Distribution Width 16.2 % (11.5-14.5); White Blood Count 6.6 K/mm3 (4.5-10.0)
[2020-04-15 04:58] LABS: Anion Gap 7 mmol/L (8-16); Blood Urea Nitrogen 37 mg/dL (9-20); Calcium 8.2 mg/dL (8.4-10.2); Carbon Dioxide 19 mmol/L (22-30); Chloride 102 mmol/L (98-107); Estimated CRCL calculation 59 ml/min; Estimated Glomerular Filt Rate 50; Glucose 123 mg/dL (75-110); Magnesium 1.8 mg/dL (1.6-2.3); Phosphorus 3.8 mg/dL (2.5-4.5); Potassium 4.8 mmol/L (3.4-5.0); Sodium 128 mmol/L (137-145)
[2020-04-15] MEDS: ENOXAPARIN 40 MG/0.4 ML SYRINGE SUB-Q ×2 (07:52→20:29)
[2020-04-15] MEDS: GABAPENTIN 100 MG CAPSULE PO (07:55)
[2020-04-15] MEDS: busPIRone HCL 10 MG TABLET PO (07:56)
[2020-04-15] MEDS: DULoxetine HCL 30 MG CAPSULE.DR 90 MG PO (07:56)
[2020-04-15] MEDS: rOPINIRole HCL 0.5 MG TABLET PO (07:56)
[2020-04-15] MEDS: polyethylene glycoL 3350 17 GM POWD.PACK PO (07:56)
[2020-04-15] MEDS: ASPIRIN 81 MG ENTERIC TABLET PO (07:58)
[2020-04-15] MEDS: ESCITALOPRAM OXALATE 10 MG TABLET PO (07:58)
--- NOTE | 2020-04-15 08:46 | WPDINTPN ---
Progress Note: A&P Assessment and Plan (1) Acute hypoxemic respiratory failure: Code(s): J96.01 - Acute respiratory failure with hypoxia Status: Acute Assessment and Plan: acute hypoxic make respiratory failure likely secondary to COVID-19, superimposed bacterial pneumonia given patient is febrile with a T-max of 103.1?, elevated WBC count, significantly elevated CRP - patient intubated 04/14/2020, currently on CMV mode of ventilation, - will decrease tidal volumes 09/07/2049, increase rate to 24, peep of 16. Low tidal volume /high peep strategy to avoid volu trauma - continue ceftriaxone and vancomycin, MRSA positive in the nares - appreciate infectious disease following the patient - blood and urine cultures are negative, sputum cultures negative so far - sedated with fentanyl and Versed infusion, paralyzed with Nimbex infusion (2) Pneumonia: Qualifiers: Pneumonia type: due to unspecified organism Laterality: bilateral Lung location: unspecified part of lung Qualified Code(s): J18.9 - Pneumonia, unspecified organism Code(s): J18.9 - Pneumonia, unspecified organism Status: Acute Assessment and Plan: chest x-ray shows worsening patchy infiltrates bilaterally could be secondary to COVID-19 and/or superimposed bacterial pneumonia - continue treatment as above (3) Congestive heart failure: Qualifiers: Heart failure type: unspecified Heart failure chronicity: unspecified Qualified Code(s): I50.9 - Heart failure, unspecified Code(s): I50.9 - Heart failure, unspecified Status: Acute Assessment and Plan: history of congestive heart failure - patient on carvedilol, furosemide, sotalol, lisinopril. Currently holding as blood pressures are borderline, who will hold lisinopril due to acute on chronic kidney disease - 2D echo on 11/22/2019 1. Left ventricular chamber dimension is normal. 2. Left ventricular systolic function is normal, estimated at 55-60%. 3. Left atrial chamber dimension is moderately enlarged. 4. There is mild aortic valve sclerosis. 5. There is trace mitral valve regurgitation. 6. 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 7. Compared to the prior exam from February of 2019 there is no apparent difference. Mitral valve repair continues to be nicely intact. 8. There is some hypokinesis of the inferior segment. (4) CKD (chronic kidney disease) stage 3, GFR 30-59 ml/min: Code(s): N18.3 - Chronic kidney disease, stage 3 (moderate) Status: Chronic Assessment and Plan: acute on chronic kidney disease with worsening creatinine and since admission - according the records and admission notes, patient had decreased p.o. intake, diarrhea, could be prerenal - appreciate Nephrology evaluation and recommendations - continue to monitor urine output, renal function electrolytes - renal ultrasound 04/12/2020: Right kidney lower pole mass, consistent with renal cell carcinoma. - creatinine trending down 1.4 this morning ( 2.4 on admission) (5) COVID-19: Code(s): U07.1 - COVID-19 Status: Acute Assessment and Plan: patient with positive COVID-19 - status post dexamethasone x10 days - patient did get a few doses of Remdesivir before he was discharged on his last admission, did not complete the full 5 day course - appreciate infectious disease evaluation and recommendation - LDH, ferritin, CRP, D-dimer all elevated, continue to follow (6) Essential hypertension: Code(s): I10 - Essential (primary) hypertension Status: Chronic Assessment and Plan: blood pressures have been borderline, patient did receive lisinopril, Coreg, Lasix, sotalol this morning. Will hold medications for now especially lisinopril and Lasix due to acute on chronic kidney disease. (7) DVT prophylaxis: Code(s): Z29.9 - Encounter for prophylactic measures, unspecified Sta
[2020-04-15] MEDS: PANTOPRAZOLE SODIUM IV 40 MG VIAL IV PUSH (09:20)
[2020-04-15 09:40] LABS: Lactic Acid Reflex 0.7 mmol/L (0.7-2.1)
[2020-04-15 10:10] LABS: Alveolar/Arterial O2 Gradient 406.5 mmHg; Base Excess ABG -7.5 mEq/l (+/-2.0); Fractional Inspired Oxygen 85 %; Methemoglobin ABG 0.3 %THb (0-1.5); Oxygen Content ABG 16.4 %vol (16.0-22.0); Oxygen Saturation ABG 98.8 % (95.0-100.0); Oxyhemoglobin 97.6 % THb (90.0-100.0); PCO2 ABG 42.1 mmHg (35.0-45.0); PO2 ABG 155.9 mmHg (80.0-100.0); PO2 FiO2 Ratio Arterial Blood 1.83 %; Reduced Hemoglobin 2.1 %THb (0-5.0); Total Hemoglobin 11.7 g/dL (12.0-18.0)
[2020-04-15 10:12] LABS: Device VENTILATOR; Modified Allen's Test Pass; Site Drawn RIGHT RADIAL; pH ABG 7.272 (7.350-7.450)
[2020-04-15 10:13] LABS: Arterial Blood Gas PEEP 16 cmH2O; Arterial Blood Gas Tidal Volume 450 ml; Arterial Blood Gas Vent Mode CMV; Arterial Blood Gas Ventilator rate 24 /MIN
[2020-04-15] MEDS: EPOPROSTENOL SODIUM 0.5 MG VIAL INHALATION (10:54)
[2020-04-15] MEDS: EPOPROSTENOL SODIUM 0.5 MG VIAL 0.25 MG INHALATION (13:07)
[2020-04-15 14:21] LABS: Alveolar/Arterial O2 Gradient 372.4 mmHg; Base Excess ABG -6.8 mEq/l (+/-2.0); Fractional Inspired Oxygen 85 %; HCO3 ABG 20.1 mEq/l (22.0-26.0); Oxygen Content ABG 17.6 %vol (16.0-22.0); Oxygen Saturation ABG 99.1 % (95.0-100.0); PCO2 ABG 45.3 mmHg (35.0-45.0); PO2 ABG 186.7 mmHg (80.0-100.0); Total Hemoglobin 12.5 g/dL (12.0-18.0)
[2020-04-15 14:23] LABS: Arterial Blood Gas PEEP 16 cmH2O; Arterial Blood Gas Tidal Volume 450 ml; Arterial Blood Gas Vent Mode CMV; Arterial Blood Gas Ventilator rate 24 /MIN; Device VENTILATOR; Modified Allen's Test Pass; Site Drawn RIGHT RADIAL; pH ABG 7.264 (7.350-7.450)
--- NOTE | 2020-04-15 15:33 | P.PNIM_ITS ---
Progress Note: A&P Assessment and Plan (1) Acute hypoxemic respiratory failure: Code(s): J96.01 - Acute respiratory failure with hypoxia Status: Acute Assessment and Plan: * Due to covid 19 and possible concomitant bacterial PNA. * Intubated now, critical care managing vent. * * 04/15/20 15:33 patient is 69-year-old male with a hypoxic respiratory failure with COVID-19 pneumonia superimposed with bacterial pneumonia patient is currently intubated being treated with Rocephin and vancomycin, seen by ID and managed by change over, patient on vent unable to provide any review of symptoms, patient is seen outside his glass door (2) Pneumonia: Qualifiers: Pneumonia type: due to unspecified organism Laterality: bilateral Lung location: unspecified part of lung Qualified Code(s): J18.9 - Pneumonia, unspecified organism Code(s): J18.9 - Pneumonia, unspecified organism Status: Acute Assessment and Plan: * He was diagnosed with COVID on 03/31/2020 * He has been started on ceftriaxone and vancomycin for possible superimposed PNA. (3) COVID-19: Code(s): U07.1 - COVID-19 Status: Acute Assessment and Plan: * He completed a course of dexamethasone, and received remdesivir during his previous hospitalization but not a full course. * Continue isolation precautions. (4) Paroxysmal atrial fibrillation: Code(s): I48.0 - Paroxysmal atrial fibrillation Status: Chronic Assessment and Plan: * He is currently in a sinus rhythm with occasional atrial ectopy. * No longer on long-term anticoagulation for unclear reasons. * His carvedilol and sotalol are on hold due to low Bp (5) Congestive heart failure: Qualifiers: Heart failure type: unspecified Heart failure chronicity: unspecified Qualified Code(s): I50.9 - Heart failure, unspecified Code(s): I50.9 - Heart failure, unspecified Status: Acute Assessment and Plan: * Diastolic congestive heart failure appears clinically compensated, (6) Elevated troponin: Code(s): R79.89 - Other specified abnormal findings of blood chemistry Status: Acute Assessment and Plan: * Mildly elevated on admission likely demand ischemia from PNA, resp distress. Subjective Date/time seen: 04/15/20 15:33 patient is 69-year-old male with a hypoxic respiratory failure with COVID-19 pneumonia superimposed with bacterial pneumonia patient is currently intubated being treated with Rocephin and vancomycin, seen by ID and managed by change over, patient on vent unable to provide any review of symptoms, patient is seen outside his glass door Review of Systems Review of Systems: ROS unobtainable: Yes unobtainable due to endotracheal tube Exam Narrative: Exam Narrative: patient is seen but not examined Const: General: comfortable and no acute distress HENMT: General nose exam: Normal nares present Neck: Other: no retraction Resp: Effort & Inspection: normal respiratory effort GI: Other: not distended Skin: General skin exam: normal color Neuro: Other: patient on vent and sedated Extrem: General: normal to inspection
--- NOTE | 2020-04-15 15:33 | PM.IMPN ---
Progress Note: A&P Assessment and Plan (1) Acute hypoxemic respiratory failure: Code(s): J96.01 - Acute respiratory failure with hypoxia Status: Acute Assessment and Plan: Due to covid 19 and possible concomitant bacterial PNA. Intubated now, critical care managing vent. 04/15/20 15:33 patient is 69-year-old male with a hypoxic respiratory failure with COVID-19 pneumonia superimposed with bacterial pneumonia patient is currently intubated being treated with Rocephin and vancomycin, seen by ID and managed by gyroscope repairer, patient on vent unable to provide any review of symptoms, patient is seen outside his glass door (2) Pneumonia: Qualifiers: Pneumonia type: due to unspecified organism Laterality: bilateral Lung location: unspecified part of lung Qualified Code(s): J18.9 - Pneumonia, unspecified organism Code(s): J18.9 - Pneumonia, unspecified organism Status: Acute Assessment and Plan: He was diagnosed with COVID on 03/31/2020 He has been started on ceftriaxone and vancomycin for possible superimposed PNA. (3) COVID-19: Code(s): U07.1 - COVID-19 Status: Acute Assessment and Plan: He completed a course of dexamethasone, and received remdesivir during his previous hospitalization but not a full course. Continue isolation precautions. (4) Paroxysmal atrial fibrillation: Code(s): I48.0 - Paroxysmal atrial fibrillation Status: Chronic Assessment and Plan: He is currently in a sinus rhythm with occasional atrial ectopy. No longer on long-term anticoagulation for unclear reasons. His carvedilol and sotalol are on hold due to low Bp (5) Congestive heart failure: Qualifiers: Heart failure type: unspecified Heart failure chronicity: unspecified Qualified Code(s): I50.9 - Heart failure, unspecified Code(s): I50.9 - Heart failure, unspecified Status: Acute Assessment and Plan: Diastolic congestive heart failure appears clinically compensated, (6) Elevated troponin: Code(s): R79.89 - Other specified abnormal findings of blood chemistry Status: Acute Assessment and Plan: Mildly elevated on admission likely demand ischemia from PNA, resp distress. Subjective Date/time seen: 04/15/20 15:33 patient is 69-year-old male with a hypoxic respiratory failure with COVID-19 pneumonia superimposed with bacterial pneumonia patient is currently intubated being treated with Rocephin and vancomycin, seen by ID and managed by gyroscope repairer, patient on vent unable to provide any review of symptoms, patient is seen outside his glass door Review of Systems Review of Systems: ROS unobtainable: Yes unobtainable due to endotracheal tube Exam Narrative: Exam Narrative: patient is seen but not examined Const: General: comfortable and no acute distress HENMT: General nose exam: Normal nares present Neck: Other: no retraction Resp: Effort & Inspection: normal respiratory effort GI: Other: not distended Skin: General skin exam: normal color Neuro: Other: patient on vent and sedated Extrem: General: normal to inspection Psych: Other: on vent and sedated Objective Data Vital Signs Vital Signs: Vital Signs - 24 hr 04/14/20 16:00 04/14/20 16:30 04/14/20 18:00 Temperature 96.1 F L Pulse Rate 82 89 80 Respiratory Rate 24 H 24 H Blood Pressure 79/66 L 84/70 L Pulse Oximetry 97 99 100 04/14/20 18:07 04/14/20 18:29 04/14/20 20:00 Temperature 96.3 F L Pulse Rate 85 79 87 Respiratory Rate 24 H 24 H 24 H Blood Pressure 100/71 Pulse Oximetry 100 04/14/20 20:20 04/14/20 20:23
--- NOTE | 2020-04-15 15:35 | PM.PNNEP ---
Progress Note: A&P Assessment and Plan (1) MIRNA (acute kidney injury): Code(s): N17.9 - Acute kidney failure, unspecified Status: Acute Assessment and Plan: likely multifactorial: - ATN from relative hypotension and infection (COVID-19 + pneumonia) - prerenal factors (urine lytes support this) - use of diuretics and KAMILLA-I prior to admission - complicated by recent loss of nephron mass (due to right partial nephrectomy) urine lytes noted; renal ultrasound still with right renal mass creatinine doing somewhat better no critical electrolytes although sodium dropping - try to change all carriers and medications to normal saline (rather than D5W) adequate urine output - not opposed to PRN diuretics if neede follow I/Os and repeat labs (2) Chronic kidney disease, stage 2 (mild): Code(s): N18.2 - Chronic kidney disease, stage 2 (mild) Status: Acute Assessment and Plan: baseline creatinine around 1.0 - 1.2mg/dl probably due to HTN, vascular disease, and age-related change (3) Acute hypoxemic respiratory failure: Code(s): J96.01 - Acute respiratory failure with hypoxia Status: Acute Assessment and Plan: thought to be due to #3 and #4 currently intubated and on mechanical ventilation on IV antibiotic therapy Infectious Disease recommendations noted (4) Pneumonia: Qualifiers: Pneumonia type: due to unspecified organism Laterality: bilateral Lung location: unspecified part of lung Qualified Code(s): J18.9 - Pneumonia, unspecified organism Code(s): J18.9 - Pneumonia, unspecified organism Status: Acute Assessment and Plan: on broad spectrum antibiotics follow culture data respiratory support (5) COVID-19: Code(s): U07.1 - COVID-19 Status: Acute Assessment and Plan: completed course of dexamethasone and partial treatment with remdesivir Infectious Disease recommendations noted Will continue to follow. Subjective Date/time seen: 04/15/20 15:35 Events in the last 24 hours noted -- oxygen desaturations to the 80s after he was cleaned requiring bagging and increase in PEEP and FIO2 to compensated; started on Flonan; on pressor therapy to maintain MAP. Exam Narrative: Exam Narrative: General: Elderly male intubated/sedated Heart: normal S1 and S2; no rub Lungs: coarse with scattered rhonchi present Abdomen: soft, nontender, nondistended, positive bowel sounds Extremities: no cyanosis or clubbing; no edema Skin: no nodules Objective Data Vital Signs Vital Signs: Vital Signs Temp Pulse Resp BP Pulse Ox 04/15/20 14:14 91 24 H 100 04/15/20 14:12 91 100 04/15/20 14:00 97 24 H 110/66 100 04/15/20 13:08 85 24 H 100 04/15/20 12:44 96 24 H 109/71 04/15/20 12:15 91 100 04/15/20 12:00 36.1 C L 95 24 H 114/76 100 04/15/20 11:00 92 24 H 106/57 L 04/15/20 10:57 89 24 H 04/15/20 10:55 91 24 H 100 04/15/20 10:00 95 24 H 102/74 99 04/15/20 09:54 99 24 H 100 04/15/20 09:44 88 04/15/20 09:00 92 24 H 99/62 L 04/15/20 08:13 90 24 H 04/15/20 08:07 86 24 H 96 04/15/20 08:04 86 96 04/15/20 08:00 93 24 H 101/62 04/15/20 07:44 36.2 C L 89 20 105/69 99 04/15/20 06:20 80 20 92/70 L 04/15/20 06:19 92/70 L 04/15/20 06:07 90 20 04/15/20 06:06 94 20 04/15/20 05:48 85 20 99 04/15/20 05:18 86 20 103/70 100 04/15/20 04:40 92/70 L 04/15/20 04:24 85 20 96/65 L 04/15/20 04:20 96/65 L 04/15/20 04:19 80 24 H 04/15/20 04:18 82 24 H 04/15/20 04:12 70 100 04/15/20 03:59 109/72 04/15/20 03:50 36.1 C L 76 16 117/69 100 04/15/20 02:18 80 24 H 04/15/20 02:03 80 24 H 83/55 L 04/15/20 02:02 76 24 H 04/15/20 02:01 83/55 L 04/15/20 01:55 82 24 H 94/
[2020-04-15] MEDS: NOREPINEPHRINE 8 MG/D5W 250 ML 8 MG/250 ML BAG 15 MG IV CONT (16:03)
[2020-04-16] VITALS (63 sets, daily range): BP systolic 70–133; BP diastolic 53–85; PULSE 74–112; RESP 14–32; TEMP 35.9–37.4; O2SAT 93–99
[2020-04-16 05:18] LABS: Alveolar/Arterial O2 Gradient 213.2 mmHg; Base Excess ABG -6.9 mEq/l (+/-2.0); Carboxyhemoglobin 0.1 % THb (0-2.0); Fractional Inspired Oxygen 60 %; HCO3 ABG 19.2 mEq/l (22.0-26.0); Methemoglobin ABG 0.3 %THb (0-1.5); Oxygen Content ABG 16.5 %vol (16.0-22.0); Oxyhemoglobin 98.1 % THb (90.0-100.0); PO2 ABG 169.5 mmHg (80.0-100.0); PO2 FiO2 Ratio Arterial Blood 2.83 %; Reduced Hemoglobin 1.5 %THb (0-5.0); Total Hemoglobin 11.7 g/dL (12.0-18.0); pH ABG 7.289 (7.350-7.450)
[2020-04-16 05:19] LABS: Device VENTILATOR; Modified Allen's Test Pass; Site Drawn RIGHT RADIAL
[2020-04-16 05:20] LABS: Arterial Blood Gas PEEP 16 cmH2O; Arterial Blood Gas Tidal Volume 450 ml; Arterial Blood Gas Vent Mode CMV; Arterial Blood Gas Ventilator rate 24 /MIN
[2020-04-16] MEDS: SODIUM CHLORIDE 0.9% IV 1,000 ML 75 ML IV CONT ×2 (05:53→18:34)
[2020-04-16 06:07] LABS: Hematocrit 29.6 % (42.0-52.0); Hemoglobin 9.7 g/dL (14.0-18.0); Mean Corpuscular HGB Conc 32.8 g/dl (32-36); Mean Corpuscular Hemoglobin 30.3 pg (26-34); Mean Corpuscular Volume 92.5 fl (80-100); Mean Platelet Volume 10.8 fl (7.4-10.4); Platelet Count Result 196 k/mm3 (150-375); Red Cell Distribution Width 16.1 % (11.5-14.5); White Blood Count 5.2 K/mm3 (4.5-10.0)
[2020-04-16 06:32] LABS: Anion Gap 7 mmol/L (8-16); Blood Urea Nitrogen 32 mg/dL (9-20); Calcium 8.5 mg/dL (8.4-10.2); Carbon Dioxide 20 mmol/L (22-30); Chloride 101 mmol/L (98-107); Estimated CRCL calculation 59 ml/min; Estimated Glomerular Filt Rate 50; Glucose 120 mg/dL (75-110); Magnesium 1.9 mg/dL (1.6-2.3); Phosphorus 4.1 mg/dL (2.5-4.5); Potassium 4.7 mmol/L (3.4-5.0); Sodium 128 mmol/L (137-145)
[2020-04-16] MEDS: ENOXAPARIN 40 MG/0.4 ML SYRINGE SUB-Q (07:50)
[2020-04-16] MEDS: PANTOPRAZOLE SODIUM IV 40 MG VIAL IV PUSH (07:50)
[2020-04-16] MEDS: ASPIRIN 81 MG ENTERIC TABLET PO (07:51)
--- NOTE | 2020-04-16 08:46 | WPDINTPN ---
Progress Note: A&P Assessment and Plan (1) Acute hypoxemic respiratory failure: Code(s): J96.01 - Acute respiratory failure with hypoxia Status: Acute Assessment and Plan: acute hypoxic make respiratory failure likely secondary to COVID-19, superimposed bacterial pneumonia given patient is febrile with a T-max of 103.1?, elevated WBC count, significantly elevated CRP - patient intubated 04/14/2020, currently on CMV mode of ventilation, - continue low tidal volume strategy, CMV mode of ventilation, FiO2 of 60%, will decrease PEEP to 14 - continue ceftriaxone and vancomycin, MRSA positive in the nares - appreciate infectious disease following the patient - blood and urine cultures are negative, sputum cultures negative so far - sedated with fentanyl and Versed infusion, paralyzed with Nimbex infusion (2) Pneumonia: Qualifiers: Pneumonia type: due to unspecified organism Laterality: bilateral Lung location: unspecified part of lung Qualified Code(s): J18.9 - Pneumonia, unspecified organism Code(s): J18.9 - Pneumonia, unspecified organism Status: Acute Assessment and Plan: chest x-ray shows worsening patchy infiltrates bilaterally could be secondary to COVID-19 and/or superimposed bacterial pneumonia - continue treatment as above (3) Shock: Code(s): R57.9 - Shock, unspecified Status: Acute Assessment and Plan: patient hypotensive requiring Levophed, likely related to sepsis, medication related, positive pressure ventilation related - continue Levophed and maintain mean arterial pressures greater than 65 mmHg - lactic acid was normal - continue antibiotics as above (4) 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 Note that MICHELET may be overestimated if arteries are calcified. - will start heparin infusion (5) Congestive heart failure: Qualifiers: Heart failure type: unspecified Heart failure chronicity: unspecified Qualified Code(s): I50.9 - Heart failure, unspecified Code(s): I50.9 - Heart failure, unspecified Status: Acute Assessment and Plan: history of congestive heart failure - patient on carvedilol, furosemide, sotalol, lisinopril. Currently holding as blood pressures are borderline, who will hold lisinopril due to acute on chronic kidney disease - 2D echo on 11/22/2019 1. Left ventricular chamber dimension is normal. 2. Left ventricular systolic function is normal, estimated at 55-60%. 3. Left atrial chamber dimension is moderately enlarged. 4. There is mild aortic valve sclerosis. 5. There is trace mitral valve regurgitation. 6. 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 7. Compared to the prior exam from February of 2019 there is no apparent difference. Mitral valve repair continues to be nicely intact. 8. There is some hypokinesis of the inferior segment. (6) CKD (chronic kidney disease) stage 3, GFR 30-59 ml/min: Code(s): N18.3 - Chronic kidney disease, stage 3 (moderate) Status: Chronic Assessment and Plan: acute on chronic kidney disease with worsening creatinine and since admission - according the records and admission notes, patient had decreased p.o. intake, diarrhea, could be prerenal - appreciate Nephrology evaluation and recommendations - continue to monitor urine output, renal function electrolytes - renal ultrasound 04/12/2020: Right kidney lower pole mass, consistent with renal cell carcinoma. - creatinine trending down 1.4 this morning ( 2.4 on admission) (7) COVID-19: Code(s): U07.1 - COVID-19 Status
[2020-04-16 09:27] LABS: Basophils Percent Auto 0.2 % (0.2-1.2); Eosinophils Absolute Auto 0.2 K/mm3 (0-0.3); Hematocrit 26.6 % (42.0-52.0); Hemoglobin 8.6 g/dL (14.0-18.0); Immature Granulocyte Absolute 0.03 K/mm3 (0.00-0.031); Immature Granulocyte Percent A 0.6 % (0-0.5); Lymphocytes Absolute Auto 0.48 K/mm3 (0.9-3.2); Lymphocytes Percent Auto 9.5 % (18.3-44.2); Mean Corpuscular HGB Conc 32.3 g/dl (32-36); Mean Corpuscular Hemoglobin 29.9 pg (26-34); Mean Corpuscular Volume 92.4 fl (80-100); Mean Platelet Volume 10.8 fl (7.4-10.4); Monocytes Absolute Auto 0.3 K/mm3 (0.1-0.6); Monocytes Percent Auto 5.3 % (2.6-8.5); Neutrophils Absolute Auto 4.1 K/mm3 (1.3-6.7); Neutrophils Percent Auto 81.4 % (45.5-73.1); Platelet Count Result 174 k/mm3 (150-375); Red Blood Count 2.88 M/mm3 (4.6-6.20); Red Cell Distribution Width 16.3 % (11.5-14.5); White Blood Count 5.1 K/mm3 (4.5-10.0)
[2020-04-16 09:37] LABS: INR 1.2; Prothrombin Time 14.9 Seconds (11.1-14.7)
[2020-04-16 09:38] LABS: Partial Thromboplastin Time 39.5 SECONDS (22.3-36.8)
[2020-04-16] MEDS: HEPARIN SOD/D5W 100 UNITS/ML 25,000 UNITS/250 ML BAG 15 UNITS IV CONT (09:56)
[2020-04-16] MEDS: NOREPINEPHRINE 8 MG/D5W 250 ML 8 MG/250 ML BAG 15 MG IV CONT (12:43)
--- NOTE | 2020-04-16 14:49 | PM.IMPN ---
Progress Note: A&P Assessment and Plan (1) Acute hypoxemic respiratory failure: Code(s): J96.01 - Acute respiratory failure with hypoxia Status: Acute Assessment and Plan: Due to covid 19 and possible concomitant bacterial PNA. Intubated now, critical care managing vent. 04/16/20 14:44 patient is 69-year-old male with a hypoxic respiratory failure with COVID-19 pneumonia superimposed with bacterial pneumonia patient is currently intubated being treated with Rocephin and vancomycin, patient is off flolan, on fentanyl 150mcg and versed 4mg/hr for sedation, patient is on levophed 8mcg/naida and on pyralactic, seen by ID and managed by service agent, patient on vent unable to provide any review of symptoms, family will decided about further care after two or three days if there is no improvement, patient is seen outside his glass door (2) Pneumonia: Qualifiers: Pneumonia type: due to unspecified organism Laterality: bilateral Lung location: unspecified part of lung Qualified Code(s): J18.9 - Pneumonia, unspecified organism Code(s): J18.9 - Pneumonia, unspecified organism Status: Acute Assessment and Plan: He was diagnosed with COVID on 03/31/2020 He has been started on ceftriaxone and vancomycin for possible superimposed PNA. (3) COVID-19: Code(s): U07.1 - COVID-19 Status: Acute Assessment and Plan: He completed a course of dexamethasone, and received remdesivir during his previous hospitalization but not a full course. Continue isolation precautions. (4) Paroxysmal atrial fibrillation: Code(s): I48.0 - Paroxysmal atrial fibrillation Status: Chronic Assessment and Plan: He is currently in a sinus rhythm with occasional atrial ectopy. No longer on long-term anticoagulation for unclear reasons. His carvedilol and sotalol are on hold due to low Bp (5) Congestive heart failure: Qualifiers: Heart failure type: unspecified Heart failure chronicity: unspecified Qualified Code(s): I50.9 - Heart failure, unspecified Code(s): I50.9 - Heart failure, unspecified Status: Acute Assessment and Plan: Diastolic congestive heart failure appears clinically compensated, (6) Elevated troponin: Code(s): R79.89 - Other specified abnormal findings of blood chemistry Status: Acute Assessment and Plan: Mildly elevated on admission likely demand ischemia from PNA, resp distress. Subjective Date/time seen: 04/16/20 14:44 patient is 69-year-old male with a hypoxic respiratory failure with COVID-19 pneumonia superimposed with bacterial pneumonia patient is currently intubated being treated with Rocephin and vancomycin, patient is off flolan, on fentanyl 150mcg and versed 4mg/hr for sedation, patient is on levophed 8mcg/naida and on pyralactic, seen by ID and managed by service agent, patient on vent unable to provide any review of symptoms, family will decided about further care after two or three days if there is no improvement, patient is seen outside his glass door Review of Systems Review of Systems: ROS unobtainable: Yes unobtainable due to endotracheal tube Exam Narrative: Exam Narrative: patient seen outside glass door but not examine Const: General: comfortable and no acute distress HENMT: General nose exam: Normal nares present Other: ET tube in place Neck: Other: no retraction Resp: Effort & Inspection: normal respiratory effort GI: Other: not distant Skin: General skin exam: normal color Neuro: Other: on vent and sedated Extrem: General: normal to inspection Psych: Affect: Anxious affect present
[2020-04-16 16:10] LABS: Partial Thromboplastin Time 60.9 SECONDS (22.3-36.8)
[2020-04-16] MEDS: HEPARIN SODIUM 5,000 UNITS/ML VIAL 4000 UNITS IV PUSH ×2 (16:21→22:59)
--- NOTE | 2020-04-16 16:32 | PM.PNNEP ---
Progress Note: A&P Assessment and Plan (1) MIRNA (acute kidney injury): Code(s): N17.9 - Acute kidney failure, unspecified Status: Acute Assessment and Plan: likely multifactorial: - ATN from relative hypotension and infection (COVID-19 + pneumonia) - prerenal factors (urine lytes support this) - use of diuretics and KAMILLA-I prior to admission - complicated by recent loss of nephron mass (due to right partial nephrectomy) urine lytes noted; renal ultrasound still with right renal mass creatinine doing somewhat better no critical electrolytes although sodium a bit low - try to change all carriers and medications to normal saline (rather than D5W) adequate urine output - not opposed to PRN diuretics if needed follow I/Os and repeat labs (2) Chronic kidney disease, stage 2 (mild): Code(s): N18.2 - Chronic kidney disease, stage 2 (mild) Status: Acute Assessment and Plan: baseline creatinine around 1.0 - 1.2mg/dl probably due to HTN, vascular disease, and age-related change (3) Acute hypoxemic respiratory failure: Code(s): J96.01 - Acute respiratory failure with hypoxia Status: Acute Assessment and Plan: thought to be due to #3 and #4 currently intubated and on mechanical ventilation on IV antibiotic therapy Infectious Disease recommendations noted (4) Pneumonia: Qualifiers: Pneumonia type: due to unspecified organism Laterality: bilateral Lung location: unspecified part of lung Qualified Code(s): J18.9 - Pneumonia, unspecified organism Code(s): J18.9 - Pneumonia, unspecified organism Status: Acute Assessment and Plan: on broad spectrum antibiotics follow culture data respiratory support (5) COVID-19: Code(s): U07.1 - COVID-19 Status: Acute Assessment and Plan: completed course of dexamethasone and partial treatment with remdesivir Infectious Disease recommendations noted Will continue to follow. Subjective Date/time seen: 04/16/20 16:32 No significant changes noted -- remains intubated and sedated as well as on pressor therapy to maintain his MAP; no acute issues/events overnight or this AM; no distress apparent at the time of my visit. Exam Narrative: Exam Narrative: General: Elderly male intubated/sedated Heart: normal S1 and S2; no rub Lungs: coarse with scattered rhonchi present Abdomen: soft, nontender, nondistended, positive bowel sounds Extremities: no cyanosis or clubbing; no edema Skin: warm and intact Objective Data Vital Signs Vital Signs: Vital Signs Temp Pulse Resp BP Pulse Ox 04/16/20 16:27 74 94 04/16/20 16:06 79 77/55 L 04/16/20 16:00 87 14 70/55 L 94 04/16/20 14:14 85 96 04/16/20 14:03 80 85/58 L 04/16/20 14:01 83 24 H 04/16/20 14:00 86 26 H 85/58 L 96 04/16/20 13:38 83 24 H 04/16/20 12:45 82 24 H 93/69 L 04/16/20 12:43 86 93/69 L 04/16/20 12:02 85 24 H 87/65 L 04/16/20 12:00 88 04/16/20 11:59 36.3 C L 85 24 H 87/65 L 97 04/16/20 11:10 90 97 04/16/20 10:42 88 111/68 04/16/20 10:39 90 24 H 111/68 04/16/20 10:00 88 24 H 111/73 97 04/16/20 09:00 85 24 H 95/69 L 04/16/20 08:08 88 99 04/16/20 08:00 83 04/16/20 07:45 89 24 H 87/62 L 04/16/20 07:32 35.9 C L 88 24 H 96/64 L 99 04/16/20 07:30 88 24 H 87/62 L 04/16/20 06:01 88 92/70 L 04/16/20 06:00 83 24 H 04/16/20 05:59 86 24 H 04/16/20 05:54 85 24 H 98/70 L 04/16/20 05:21 81 24 H 92/58 L 99 04/16/20 04:00 36.1 C L 89 24 H 100/65 99 04/16/20 03:50 99 04/16/20 02:57 88 99 04/16/20 02:49 87 97/66 L 04/16/20 02:48 82 24 H 97/66 L 04/16/20 02:47 83 24 H 04/16/20 01:37 89 24 H 95/60 L 99 04/16/20 00:00 36.2 C L 90 24 H 97/68 L 99 04/15/20 23:5
[2020-04-16] MEDS: PROPOFOL IV EMULSION 100 ML 3.9 MG IV CONT (22:54)
[2020-04-16] MEDS: HEPARIN SOD/D5W 100 UNITS/ML 25,000 UNITS/250 ML BAG 19 UNITS IV CONT (23:03)
[2020-04-17] VITALS (55 sets, daily range): BP systolic 82–121; BP diastolic 53–76; PULSE 68–95; RESP 16–29; TEMP 36.1–38; O2SAT 91–100
--- NOTE | 2020-04-17 | ECHO_ITS ---
Patient Info Name: Emil Wallis Age: 69 years : 1950 Gender: Male Ht: 70 in Wt: 298 lbs BSA: 2.65 m2 HR: 70 bpm BP: 104 / 67 mmHg Heart Rhythm: Atrial Fibrillation Technical Quality: Fair Exam Date: 04/17/2020 11:36 AM Exam Location: [facility] Patient Status: Inpatient Admit Date: 04/10/2020 Staff Ordering Physician: Arianna Sampson MD [employer] Generator: Huey Back RDCS Attending Provider: Deena Acosta MD Referring Physician: Adrián COX; Exam Type: CA echo doppler color flow Study Info Indications R65.21 - Severe sepsis with septic shock Complete two-dimensional, color flow and Doppler transthoracic echocardiogram is performed. History/Risk Factors Covid-19+; Septic shock; ARF w/ hypoxia, HoTN, CHF, CKD3, MV Ring. Summary 1. Complete two-dimensional, color flow and Doppler transthoracic echocardiogram is performed. 2. Technically challenging study. 3. Normal left ventricular size and systolic function. 4. Modest aortic valve sclerosis the valve is not stenotic. 5. Dilated left atrium. 6. Mitral valve annular calcium with trivial MR. 7. Previous exams have commented that there appears to be a prior mitral valve annuloplasty. Quality of this exam precludes that comment. Left Ventricle Left ventricular chamber dimension is normal. Left ventricular systolic function is normal, estimated at 60-65%. The left ventricular diastolic function is indeterminate. Right Ventricle Right ventricular chamber dimension is normal. Left Atria Left atrial chamber dimension is moderately enlarged. Aortic Valve The aortic valve is trileaflet. There is mild aortic valve sclerosis. There is no aortic valve stenosis. Pulmonic Valve The pulmonic valve is not well visualized. Mitral Valve The mitral valve has normal leaflets. There is trace mitral valve regurgitation. The mitral valve annulus is mildly calcified. Tricuspid Valve The tricuspid valve leaflets are normal. Pericardium/Pleural The pericardium appears normal. Aorta The aortic root size at the sinus of Valsalva is normal. Left Ventricular Outflow Tract Name Value Normal LVOT 2D LVOT Diameter 2.2 cm LVOT Doppler LVOT Peak Gradient 5 mmHg LVOT Mean Gradient 3 mmHg LVOT VTI 21 cm LVOT VTI/AV VTI Ratio 1.0 LVOT Stroke Volume 79 ml LVOT CO 4.6 l/min LVOT CI 1.7 l/min/m2 Mitral Valve Name Value Normal MV Doppler MV Decel [place] 593 cm/s2 MV PHT 48 ms MV Area (PHT) 4.6 cm2 4.0-5.0 MV Diastolic Function
[2020-04-17 04:30] LABS: Basophils Percent Auto 0.2 % (0.2-1.2); Eosinophils Percent Auto 0.5 % (0-4.4); Hematocrit 28.4 % (42.0-52.0); Hemoglobin 9.4 g/dL (14.0-18.0); Immature Granulocyte Absolute 0.05 K/mm3 (0.00-0.031); Immature Granulocyte Percent A 0.8 % (0-0.5); Lymphocytes Absolute Auto 0.58 K/mm3 (0.9-3.2); Lymphocytes Percent Auto 8.8 % (18.3-44.2); Mean Corpuscular HGB Conc 33.1 g/dl (32-36); Mean Corpuscular Hemoglobin 30.2 pg (26-34); Mean Corpuscular Volume 91.3 fl (80-100); Mean Platelet Volume 10.8 fl (7.4-10.4); Monocytes Absolute Auto 0.3 K/mm3 (0.1-0.6); Monocytes Percent Auto 5.1 % (2.6-8.5); Neutrophils Absolute Auto 5.6 K/mm3 (1.3-6.7); Neutrophils Percent Auto 84.6 % (45.5-73.1); Platelet Count Result 244 k/mm3 (150-375); Red Blood Count 3.11 M/mm3 (4.6-6.20); Red Cell Distribution Width 15.9 % (11.5-14.5); White Blood Count 6.6 K/mm3 (4.5-10.0)
[2020-04-17 04:40] LABS: Partial Thromboplastin Time 72.2 SECONDS (22.3-36.8)
[2020-04-17 04:56] LABS: Anion Gap 7 mmol/L (8-16); Blood Urea Nitrogen 35 mg/dL (9-20); Calcium 8.3 mg/dL (8.4-10.2); Carbon Dioxide 20 mmol/L (22-30); Chloride 103 mmol/L (98-107); Estimated CRCL calculation 53 ml/min; Estimated Glomerular Filt Rate 43; Glucose 141 mg/dL (75-110); Lactate Dehydrogenase 490 U/L (313-618); Magnesium 1.9 mg/dL (1.6-2.3); Phosphorus 3.5 mg/dL (2.5-4.5); Potassium 4.6 mmol/L (3.4-5.0); Sodium 130 mmol/L (137-145)
[2020-04-17 04:59] LABS: CRP 26.7 mg/dL (<1.0)
[2020-04-17 05:03] LABS: D Dimer 3.62 ug/mL (<0.48)
[2020-04-17 05:03] LABS: Base Excess ABG -7.1 mEq/l (+/-2.0); Carboxyhemoglobin 0.5 % THb (0-2.0); Fractional Inspired Oxygen 70 %; HCO3 ABG 18.5 mEq/l (22.0-26.0); Methemoglobin ABG 0.3 %THb (0-1.5); Oxygen Content ABG 19.3 %vol (16.0-22.0); Oxygen Saturation ABG 98.5 % (95.0-100.0); Oxyhemoglobin 96.9 % THb (90.0-100.0); PCO2 ABG 37.6 mmHg (35.0-45.0); PO2 ABG 135.7 mmHg (80.0-100.0); PO2 FiO2 Ratio Arterial Blood 1.94 %; Reduced Hemoglobin 2.3 %THb (0-5.0); pH ABG 7.309 (7.350-7.450)
[2020-04-17 05:04] LABS: Device VENTILATOR; Modified Allen's Test Pass; Site Drawn RIGHT RADIAL
[2020-04-17 05:05] LABS: Arterial Blood Gas PEEP 14 cmH2O; Arterial Blood Gas Tidal Volume 450 ml; Arterial Blood Gas Vent Mode CMV; Arterial Blood Gas Ventilator rate 24 /MIN
[2020-04-17] MEDS: ASPIRIN 81 MG ENTERIC TABLET PO (08:13)
[2020-04-17] MEDS: PANTOPRAZOLE SODIUM IV 40 MG VIAL IV PUSH (08:13)
--- NOTE | 2020-04-17 08:15 | WPDINTPN ---
Progress Note: A&P Assessment and Plan (1) Acute hypoxemic respiratory failure: Code(s): J96.01 - Acute respiratory failure with hypoxia Status: Acute Assessment and Plan: acute hypoxemic respiratory failure likely secondary to COVID-19, superimposed bacterial pneumonia given patient is febrile with a T-max of 103.1?, elevated WBC count, significantly elevated CRP - patient intubated 04/14/2020 - continue low tidal volume strategy, CMV mode of ventilation, decrease FiO2 to 50%, continue PEEP at 14 - continue ceftriaxone and vancomycin, MRSA positive in the nares - appreciate infectious disease following the patient - blood and urine cultures are negative, sputum cultures negative so far - sedated with fentanyl and Versed infusion, paralyzed with Nimbex infusion - will diurese patient today (2) Pneumonia: Qualifiers: Pneumonia type: due to unspecified organism Laterality: bilateral Lung location: unspecified part of lung Qualified Code(s): J18.9 - Pneumonia, unspecified organism Code(s): J18.9 - Pneumonia, unspecified organism Status: Acute Assessment and Plan: chest x-ray shows worsening patchy infiltrates bilaterally could be secondary to COVID-19 and/or superimposed bacterial pneumonia - continue treatment as above (3) Shock: Code(s): R57.9 - Shock, unspecified Status: Acute Assessment and Plan: patient hypotensive requiring Levophed, likely related to sepsis, medication related, positive pressure ventilation related - continue Levophed and maintain mean arterial pressures greater than 65 mmHg - lactic acid was normal - continue antibiotics as above (4) 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 Note that MICHELET may be overestimated if arteries are calcified. - continue heparin infusion - bilateral feet are warm today (5) Congestive heart failure: Qualifiers: Heart failure type: unspecified Heart failure chronicity: unspecified Qualified Code(s): I50.9 - Heart failure, unspecified Code(s): I50.9 - Heart failure, unspecified Status: Acute Assessment and Plan: history of congestive heart failure - patient on carvedilol, furosemide, sotalol, lisinopril. holding all antihypertensive secondary to patient being on pressors - will repeat echocardiogram to evaluate systolic and diastolic function - 2D echo on 11/22/2019 1. Left ventricular chamber dimension is normal. 2. Left ventricular systolic function is normal, estimated at 55-60%. 3. Left atrial chamber dimension is moderately enlarged. 4. There is mild aortic valve sclerosis. 5. There is trace mitral valve regurgitation. 6. 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 7. Compared to the prior exam from February of 2019 there is no apparent difference. Mitral valve repair continues to be nicely intact. 8. There is some hypokinesis of the inferior segment. (6) CKD (chronic kidney disease) stage 3, GFR 30-59 ml/min: Code(s): N18.3 - Chronic kidney disease, stage 3 (moderate) Status: Chronic Assessment and Plan: acute on chronic kidney disease with worsening creatinine and since admission - according the records and admission notes, patient had decreased p.o. intake, diarrhea, could be prerenal - appreciate Nephrology evaluation and recommendations - continue to monitor urine output, renal function electrolytes - renal ultrasound 04/12/2020: Right kidney lower pole mass, consistent with renal cell carcinoma. - creatinine trending down 1.6 this morning ( 2.4 on admission) (7) COVID-
[2020-04-17] MEDS: FUROSEMIDE INJ 40 MG/4 ML VIAL IV PUSH (08:16)
[2020-04-17] MEDS: NOREPINEPHRINE 8 MG/D5W 250 ML 8 MG/250 ML BAG 13.1 MG IV CONT (08:20)
[2020-04-17] MEDS: METOCLOPRAMIDE HCL INJ 10 MG/2 ML VIAL IV PUSH ×2 (11:13→18:45)
--- NOTE | 2020-04-17 11:23 | PCDIET ---
Nutrition Follow-Up Complete: Nutrition Diagnosis: Inadequate oral intake related to oral intubation as evidenced by NPO status. Nutrition Goal: Patient to meet estimated nutritional needs. Goal in progress. Patient tolerating Vital 1.2 at 20mL/hr fairly well with residuals 220mL and below. MD ordering Reglan and advancing tube feedings toward goal of 65mL/hr, as recommended. Last recorded weight is 135.2 kg which is increased from last review. +I/O. Bowel Motility: Last documented BM on 04/12/20. Labs Reviewed: Hgb (9.4), Hct (28.4), Glu (141), BUN (35), Cr (1.6), Na (130), Ca (8.3) Meds Noted: Rocephin, Fentanyl, Lasix, NS at 75mL/hr, Heparin, Vancomycin, Versed, Levophed, Vasopressin, Protonix, Lasix, Reglan, Propofol (rate of 3.9mL/hr provides 103kcal over 24 hour period) Additional Notes: No documented skin breakdown. Will continue to monitor with same goal. Nutrition Monitoring and Evaluation: Follow up every Friday/Friday. Follow daily in ICU rounds.
[2020-04-17 11:42] LABS: Partial Thromboplastin Time 73.6 SECONDS (22.3-36.8)
--- NOTE | 2020-04-17 12:19 | PM.IMPN ---
Progress Note: A&P Assessment and Plan (1) Acute hypoxemic respiratory failure: Code(s): J96.01 - Acute respiratory failure with hypoxia Status: Acute Assessment and Plan: Due to covid 19 and possible concomitant bacterial PNA. Intubated now, critical care managing vent. 04/17/20 12:19 patient is 69-year-old male with a hypoxic respiratory failure with COVID-19 pneumonia superimposed with bacterial pneumonia patient is currently intubated being treated with Rocephin and vancomycin, patient is off flolan, on fentanyl 150mcg and versed 4mg/hr for sedation, patient is on levophed 8mcg/naida and on pyralactic, seen by ID and managed by mobile lounge driver or operator, D/W mobile lounge driver or operator patient still in critical condition planning to wean the patient off ventilator as tolerated and further recommendation to follow, patient on vent unable to provide any review of symptoms, family will decided about further care after two or three days if there is no improvement, patient is seen outside his glass door (2) Pneumonia: Qualifiers: Pneumonia type: due to unspecified organism Laterality: bilateral Lung location: unspecified part of lung Qualified Code(s): J18.9 - Pneumonia, unspecified organism Code(s): J18.9 - Pneumonia, unspecified organism Status: Acute Assessment and Plan: He was diagnosed with COVID on 03/31/2020 He has been started on ceftriaxone and vancomycin for possible superimposed PNA. (3) COVID-19: Code(s): U07.1 - COVID-19 Status: Acute Assessment and Plan: He completed a course of dexamethasone, and received remdesivir during his previous hospitalization but not a full course. Continue isolation precautions. (4) Paroxysmal atrial fibrillation: Code(s): I48.0 - Paroxysmal atrial fibrillation Status: Chronic Assessment and Plan: He is currently in a sinus rhythm with occasional atrial ectopy. No longer on long-term anticoagulation for unclear reasons. His carvedilol and sotalol are on hold due to low Bp (5) Congestive heart failure: Qualifiers: Heart failure type: unspecified Heart failure chronicity: unspecified Qualified Code(s): I50.9 - Heart failure, unspecified Code(s): I50.9 - Heart failure, unspecified Status: Acute Assessment and Plan: Diastolic congestive heart failure appears clinically compensated, (6) Elevated troponin: Code(s): R79.89 - Other specified abnormal findings of blood chemistry Status: Acute Assessment and Plan: Mildly elevated on admission likely demand ischemia from PNA, resp distress. Subjective Date/time seen: 04/17/20 12:19 patient is 69-year-old male with a hypoxic respiratory failure with COVID-19 pneumonia superimposed with bacterial pneumonia patient is currently intubated being treated with Rocephin and vancomycin, patient is off flolan, on fentanyl 150mcg and versed 4mg/hr for sedation, patient is on levophed 8mcg/naida and on pyralactic, seen by ID and managed by mobile lounge driver or operator, D/W mobile lounge driver or operator patient still in critical condition planning to wean the patient off ventilator as tolerated and further recommendation to follow, patient on vent unable to provide any review of symptoms, family will decided about further care after two or three days if there is no improvement, patient is seen outside his glass door Review of Systems Review of Systems: ROS unobtainable: Yes unobtainable due to endotracheal tube Exam Narrative: Exam Narrative: on vent and sedated, patient is seen from outside glass door not examined Const: General: comfortable and no acute distress HENMT: General nose exam:
[2020-04-17] MEDS: PROPOFOL IV EMULSION 100 ML 7.7 MG IV CONT (12:44)
[2020-04-17] MEDS: HEPARIN SOD/D5W 100 UNITS/ML 25,000 UNITS/250 ML BAG 19 UNITS IV CONT (12:51)
--- NOTE | 2020-04-17 14:44 | WPDINFPN2 ---
Progress Note: A&P Assessment and Plan (1) COVID-19: Code(s): U07.1 - COVID-19 Status: Acute Assessment and Plan: 1. Covid 19 viral pneumonia, treated incompletely but no benefit to resuming remdesivir 2. Worsened lung infiltrates with fever, suspect viral but bacterial cause possible. MRSA screen +. Sputum normal sonia 3. Respiratory failure due to above 4. Inferior pole renal mass, suspicious for malignancy from a radiographic standpoint REC Ctx #8, Vanc #6, continue both. Subjective Date/time seen: 04/17/20 14:44 Interval history: sedated not paralyzed. Norepi 7 mcg. Exam Narrative: Exam Narrative: afebrile Const: General: no acute distress Resp: Effort & Inspection: normal respiratory effort Auscultation: clear to auscultation bilaterally, no rales and diminished lung sounds Cardio: Rate: regular rate Rhythm: regular rhythm Heart sounds: no gallops and no murmurs GI: Inspection: distended GI Palp: Yes Soft to palpation, No Tenderness to palpation present (GI) and No Guarding due to palpation present (GI) Auscultation: normal bowel sounds Urinary Catheter: Urinary Catheter: patent and draining and urine clear Extrem: General: edema and pedal edema Objective Data Vital Signs Vital Signs: Vital Signs - 24 hr 04/16/20 16:00 04/16/20 16:06 04/16/20 16:27 Temperature Pulse Rate 80 79 74 Respiratory Rate 14 Blood Pressure 70/55 L 77/55 L Pulse Oximetry 94 94 04/16/20 17:05 04/16/20 18:00 04/16/20 18:30 Temperature Pulse Rate 79 83 79 Respiratory Rate 24 H Blood Pressure 130/85 114/78 117/82 Pulse Oximetry 95 04/16/20 18:39 04/16/20 18:52 04/16/20 20:00 Temperature 37.4 C Pulse Rate 81 85 87 Respiratory Rate 21 H Blood Pressure 108/75 84/53 L 128/75 Pulse Oximetry 95 04/16/20 20:02 04/16/20 20:03 04/16/20 20:15 Temperature Pulse Rate 85 89 84 Respiratory Rate 32 H 31 H Blood Pressure 128/75 Pulse Oximetry 04/16/20 20:25 04/16/20 20:30 04/16/20 20:31 Temperature Pulse Rate 87 93 90 Respiratory Rate 22 H Blood Pressure 133/83 133/83 Pulse Oximetry 95 96 04/16/20 21:00 04/16/20 21:08 04/16/20 21:09 Temperature Pulse Rate 94 93 93 Respiratory Rate 15 28 H 28 H Blood Pressure 130/71 Pulse Oximetry 97 04/16/20 21:11 04/16/20 22:00 04/16/20 22:14 Temperature Pulse Rate 94 94 102 H Respiratory Rate 29 H Blood Pressure 130/71 120/81 120/81 Pulse Oximetry 95 04/16/20 22:34 04/16/20 22:54 04/16/20 22:55 Temperature Pulse Rate 93 96 105 H Respiratory Rate 25 H 28 H 29 H Blood Pressure 109/72 Pulse Oximetry 94 04/16/20 23:01 04/16/20 23:08 04/16/20 23:09 Temperature Pulse Rate 112 H 106 H 106 H Respiratory Rate 26 H 26 H Blood Pressure 90/65 L Pulse Oximetry 04/16/20 23:10 04/16/20 23:19 04/16/20 23:31 Temperature Pulse Rate 105 H 98 98 Respiratory Rate 28 H 26 H Blood Pressure 98/65 L Pulse Oximetry 94 94 93 04/17/20 00:00 04/17/20 00:35 04/17/20 01:04 Temperature 37.1 C Pulse Rate 90 87 84 Respiratory Rate 27 H 25 H Blood Pressure 106/68 91/59 L 84/53 L Pulse Oximetry 95 95 04/17/20 01:05 04/17/20 02:00 04/17/20 02:08 Temperature Pulse Rate 92 84 83 Respiratory Rate 24 H 24 H Blood Pressure 93/69 L Pulse Oximetry 97 97 04/17/20 03:04 04/17/20 03:05 04/17/20 03:08 Temperature Pulse Rate 85 79 84 Respiratory Rate 27 H 25 H 26 H Blood Pressure 98/64 L Pulse Oximetry 97 97 04/17/20 03:35 04/17/20 04:00 04/17/20 04:08 Temperature 36.4 C Pulse Rate 80 80 80 Respiratory Rate 26 H 25 H Blood Pressure 100/63 82/54 L 82/54 L Pulse Oximetry 98 04/17/20 04:09 04/17/20 04:11 04/17/20 04:30 Temperature Pulse Rate 73 74 81 Respiratory Rate 26 H 26 H 27 H Blood Pressure 99/67 L Pulse Oximetry 98 04/17/20 04:54 04/17/20 05:00 04/17/20 05:16 Temperature Pulse Rate 72 75 71 Respiratory Rate 2
--- NOTE | 2020-04-17 17:23 | P.PNNP_ITS ---
Progress Note: A&P Assessment and Plan (1) MIRNA (acute kidney injury): Code(s): N17.9 - Acute kidney failure, unspecified Status: Acute Assessment and Plan: * likely multifactorial: - ATN from relative hypotension and infection (COVID-19 + pneumonia) - prerenal factors (urine lytes support this) - use of diuretics and KAMILLA-I prior to admission - complicated by recent loss of nephron mass (due to right partial nephrectomy) * urine lytes prerenal * renal ultrasound still with right renal mass * creatinine generally trending downwards but not to normal yet. * no critical electrolytes although sodium a bit low * adequate urine output - not opposed to PRN diuretics if needed * follow I/Os and repeat labs (2) Chronic kidney disease, stage 2 (mild): Code(s): N18.2 - Chronic kidney disease, stage 2 (mild) Status: Acute Assessment and Plan: * baseline creatinine around 1.0 - 1.2mg/dl * probably due to HTN, vascular disease, and age-related change (3) Acute hypoxemic respiratory failure: Code(s): J96.01 - Acute respiratory failure with hypoxia Status: Acute Assessment and Plan: * thought to be due to #3 and #4 * currently intubated and on mechanical ventilation * ID on the case * on vanco and ceftrixone (4) Pneumonia: Qualifiers: Laterality: bilateral Lung location: unspecified part of lung Pneumonia type: due to unspecified organism Qualified Code(s): J18.9 - Pneumonia, unspecified organism Code(s): J18.9 - Pneumonia, unspecified organism Status: Acute Assessment and Plan: * on broad spectrum antibiotics * follow culture data * respiratory support (5) COVID-19: Code(s): U07.1 - COVID-19 Status: Acute Assessment and Plan: * completed course of dexamethasone and partial treatment with remdesivir * Infectious Disease recommendations noted * continues on isolation Will continue to follow. Subjective Date/time seen: 04/17/20 17:23 Interval history: patient is on the vent. can't give a history Review of Systems Review of Systems: ROS unobtainable: Yes unobtainable due to medical condition Exam Narrative: Exam Narrative: WDWN male on vent and sedate in NAD skin no rash head ncat lungs coarse bilaterally cor reg no rub abd BS+ nontender and soft ext no edema. Objective Data Vital Signs Vital Signs: Vital Signs - 24 hr 04/16/20 18:00 04/16/20 18:30 04/16/20 18:39 Temperature Pulse Rate 83 79 81 Respiratory Rate 24 H Blood Pressure 114/78 117/82 108/75 Pulse Oximetry 95 04/16/20 18:52 04/16/20 20:00 04/16/20 20:02 Temperature 37.4 C Pulse Rate 85 87 85 Respiratory Rate 21 H 32 H Blood Pressure 84/53 L 128/75 Pulse Oximetry 95 04/16/20 20:03 04/16/20 20:15 04/16/20 20:25 Temperature Pulse Rate 89 84 87 Respiratory Rate 31 H Blood Pressure 128/75 Pulse Oximetry 95 04/16/20 20:30 04/16/20 20:31 04/16/20 21:00 Temperature Pulse Rate 93 90 94 Respiratory Rate 22 H 15 Blood Pressure 133/83 133/83 130/71 Pulse Oximetry 96 97 04/16/20 21:08
--- NOTE | 2020-04-17 17:23 | PM.PNNEP ---
Progress Note: A&P Assessment and Plan (1) MIRNA (acute kidney injury): Code(s): N17.9 - Acute kidney failure, unspecified Status: Acute Assessment and Plan: likely multifactorial: - ATN from relative hypotension and infection (COVID-19 + pneumonia) - prerenal factors (urine lytes support this) - use of diuretics and KAMILLA-I prior to admission - complicated by recent loss of nephron mass (due to right partial nephrectomy) urine lytes prerenal renal ultrasound still with right renal mass creatinine generally trending downwards but not to normal yet. no critical electrolytes although sodium a bit low adequate urine output - not opposed to PRN diuretics if needed follow I/Os and repeat labs (2) Chronic kidney disease, stage 2 (mild): Code(s): N18.2 - Chronic kidney disease, stage 2 (mild) Status: Acute Assessment and Plan: baseline creatinine around 1.0 - 1.2mg/dl probably due to HTN, vascular disease, and age-related change (3) Acute hypoxemic respiratory failure: Code(s): J96.01 - Acute respiratory failure with hypoxia Status: Acute Assessment and Plan: thought to be due to #3 and #4 currently intubated and on mechanical ventilation ID on the case on vanco and ceftrixone (4) Pneumonia: Qualifiers: Laterality: bilateral Lung location: unspecified part of lung Pneumonia type: due to unspecified organism Qualified Code(s): J18.9 - Pneumonia, unspecified organism Code(s): J18.9 - Pneumonia, unspecified organism Status: Acute Assessment and Plan: on broad spectrum antibiotics follow culture data respiratory support (5) COVID-19: Code(s): U07.1 - COVID-19 Status: Acute Assessment and Plan: completed course of dexamethasone and partial treatment with remdesivir Infectious Disease recommendations noted continues on isolation Will continue to follow. Subjective Date/time seen: 04/17/20 17:23 Interval history: patient is on the vent. can't give a history Review of Systems Review of Systems: ROS unobtainable: Yes unobtainable due to medical condition Exam Narrative: Exam Narrative: WDWN male on vent and sedate in NAD skin no rash head ncat lungs coarse bilaterally cor reg no rub abd BS+ nontender and soft ext no edema. Objective Data Vital Signs Vital Signs: Vital Signs - 24 hr 04/16/20 18:00 04/16/20 18:30 04/16/20 18:39 Temperature Pulse Rate 83 79 81 Respiratory Rate 24 H Blood Pressure 114/78 117/82 108/75 Pulse Oximetry 95 04/16/20 18:52 04/16/20 20:00 04/16/20 20:02 Temperature 37.4 C Pulse Rate 85 87 85 Respiratory Rate 21 H 32 H Blood Pressure 84/53 L 128/75 Pulse Oximetry 95 04/16/20 20:03 04/16/20 20:15 04/16/20 20:25 Temperature Pulse Rate 89 84 87 Respiratory Rate 31 H Blood Pressure 128/75 Pulse Oximetry 95 04/16/20 20:30 04/16/20 20:31 04/16/20 21:00 Temperature Pulse Rate 93 90 94 Respiratory Rate 22 H 15 Blood Pressure 133/83 133/83 130/71 Pulse Oximetry 96 97 04/16/20 21:08 04/16/20 21:09 04/16/20 21:11 Temperature Pulse Rate 93 93 94 Respiratory Rate 28 H 28 H Blood Pressure 130/71 Pulse Oximetry 04/16/20 22:00 04/16/20 22:14 04/16/20 22:34 Temperature Pulse Rate 94 102 H 93 Respiratory Rate 29 H 25 H Blood Pressure 120/81 120/81 109/72 Pulse Oximetry 95 94 04/16/20 22:54 04/16/20 22:55 04/16/20 23:01 Temperature Pulse Rate 96 105 H 112 H Respiratory Rate 28 H 29 H Blood Pressure 90/65 L Pulse Oximetry 04/16/20 23:08 04/16/20 23:09 04/16/20 23:10 Temperature Pulse Rate 106 H 106 H 105 H Respiratory Rate 26 H 26 H 28 H Blood Pressure 98/65 L Pulse Oximetry 94 04/16/20 23:19 04/16/20 23:31 04/17/20 00:00 Temperature 37.1 C Pulse Rate 98 98 90 Respiratory Rate 26 H 27 H Blood Pressure 106/
[2020-04-17] MEDS: PROPOFOL IV EMULSION 100 ML 11.6 MG IV CONT (20:15)
[2020-04-17] MEDS: ACETAMINOPHEN 325 MG TABLET 650 MG PO (20:23)
[2020-04-18] VITALS (62 sets, daily range): BP systolic 76–132; BP diastolic 49–79; PULSE 61–94; RESP 24–35; TEMP 36.2–37.3; O2SAT 88–100
[2020-04-18] MEDS: METOCLOPRAMIDE HCL INJ 10 MG/2 ML VIAL IV PUSH ×5 (00:22→23:08)
[2020-04-18] MEDS: HEPARIN SOD/D5W 100 UNITS/ML 25,000 UNITS/250 ML BAG 19 UNITS IV CONT (01:18)
[2020-04-18 04:20] LABS: Alveolar/Arterial O2 Gradient 304.9 mmHg; Base Excess ABG -7.6 mEq/l (+/-2.0); Carboxyhemoglobin 0.2 % THb (0-2.0); Fractional Inspired Oxygen 60 %; HCO3 ABG 17.6 mEq/l (22.0-26.0); Methemoglobin ABG 0.1 %THb (0-1.5); Oxygen Content ABG 16.9 %vol (16.0-22.0); Oxygen Saturation ABG 95.8 % (95.0-100.0); Oxyhemoglobin 94.7 % THb (90.0-100.0); PCO2 ABG 34.7 mmHg (35.0-45.0); PO2 ABG 84.7 mmHg (80.0-100.0); PO2 FiO2 Ratio Arterial Blood 1.41 %; Total Hemoglobin 12.6 g/dL (12.0-18.0); pH ABG 7.322 (7.350-7.450)
[2020-04-18 04:21] LABS: Device VENTILATOR; Modified Allen's Test Pass; Site Drawn RIGHT RADIAL
[2020-04-18 04:22] LABS: Arterial Blood Gas PEEP 14 cmH2O; Arterial Blood Gas Tidal Volume 450 ml; Arterial Blood Gas Vent Mode CMV; Arterial Blood Gas Ventilator rate 24 /MIN
[2020-04-18] MEDS: NOREPINEPHRINE 8 MG/D5W 250 ML 8 MG/250 ML BAG 3.8 MG IV CONT (04:42)
[2020-04-18 04:46] LABS: Hematocrit 26.2 % (42.0-52.0); Hemoglobin 8.9 g/dL (14.0-18.0); Mean Corpuscular Hemoglobin 30.4 pg (26-34); Mean Corpuscular Volume 89.4 fl (80-100); Mean Platelet Volume 10.4 fl (7.4-10.4); Platelet Count Result 254 k/mm3 (150-375); Red Blood Count 2.93 M/mm3 (4.6-6.20); Red Cell Distribution Width 15.8 % (11.5-14.5); White Blood Count 5.7 K/mm3 (4.5-10.0)
[2020-04-18 04:58] LABS: Albumin Level 2.8 g/dL (3.5-5.1); Anion Gap 6 mmol/L (8-16); Blood Urea Nitrogen 43 mg/dL (9-20); Calcium 8.6 mg/dL (8.4-10.2); Carbon Dioxide 20 mmol/L (22-30); Chloride 101 mmol/L (98-107); Estimated CRCL calculation 43 ml/min; Estimated Glomerular Filt Rate 33; Glucose 127 mg/dL (75-110); Magnesium 2.1 mg/dL (1.6-2.3); Phosphorus 4.1 mg/dL (2.5-4.5); Potassium 4.9 mmol/L (3.4-5.0); Sodium 127 mmol/L (137-145)
[2020-04-18 05:05] LABS: Partial Thromboplastin Time 63.6 SECONDS (22.3-36.8)
[2020-04-18] MEDS: HEPARIN SODIUM 5,000 UNITS/ML VIAL 4000 UNITS IV PUSH ×2 (05:15→12:22)
[2020-04-18] MEDS: PROPOFOL IV EMULSION 100 ML 15.5 MG IV CONT (08:00)
[2020-04-18] MEDS: PANTOPRAZOLE SODIUM IV 40 MG VIAL IV PUSH (08:07)
[2020-04-18] MEDS: ASPIRIN 81 MG ENTERIC TABLET PO (08:08)
--- NOTE | 2020-04-18 08:23 | P.PNNP_ITS ---
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 * (2) Chronic kidney disease, stage 2 (mild): Code(s): N18.2 - Chronic kidney disease, stage 2 (mild) Status: Acute Assessment and Plan: * baseline creatinine around 1.0 - 1.2mg/dl * probably due to HTN, vascular disease, and age-related change (3) Acute hypoxemic respiratory failure: Code(s): J96.01 - Acute respiratory failure with hypoxia Status: Acute Assessment and Plan: * thought to be due to #3 and #4 * currently intubated and on mechanical ventilation * oxygenation is worse. (4) Pneumonia: Qualifiers: Pneumonia type: due to unspecified organism Laterality: bilateral Lung location: unspecified part of lung Qualified Code(s): J18.9 - Pneumonia, unspecified organism Code(s): J18.9 - Pneumonia, unspecified organism Status: Acute Assessment and Plan: * on vancomycin and ceftriaxone. * ID on the case. * follow culture data * respiratory support (5) COVID-19: Code(s): U07.1 - COVID-19 Status: Acute Assessment and Plan: * completed course of dexamethasone and partial treatment with remdesivir * Infectious Disease recommendations noted * continues on isolation Subjective Date/time seen: 04/18/20 08:23 Interval history: patient is on the vent. he looks more uncomfortable. he is on 3 sedatives. norepi dose is down to 2. can't give a history Review of Systems Review of Systems: ROS unobtainable: Yes unobtainable due to medical condition Exam Narrative: Exam Narrative: WDWN male on vent and sedate in NAD skin no rash or sq nodules head ncat lungs coarse bilaterally cor reg no rub or gallop abd BS+ nontender and soft ext no edema. Objective Data Vital Signs Vital Signs: Vital Signs - 24 hr 04/17/20 08:44 04/17/20 10:00 04/17/20 11:15 Temperature Pulse Rate 69 73 73 Respiratory Rate 24 H 24 H Blood Pressure 96/63 L Pulse Oximetry 93 95 04/17/20 11:16 04/17/20 11:44 04/17/20 11:52 Temperature Pulse Rate 73 68 73 Respiratory Rate 28 H Blood Pressure 96/63 L Pulse Oximetry 92 04/17/20 12:00 04/17/20 12:44 04/17/20 14:00 Temperature 36.1 C L Pulse Rate 74 73 73 Respiratory Rate 25 H 27 H 24 H Blood Pressure 121/76 110/71 Pulse Oximetry 92 91 04/17/20 14:51 04/17/20 16:00 04/17/20 16:30 Temperature 36.4 C Pulse Rate 76 85 82 Respiratory Rate 26 H Blood Pressure 110/64 117/66 Pulse Oximetry 93 94 04/17/20 16:31
--- NOTE | 2020-04-18 08:23 | PM.PNNEP ---
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 (2) Chronic kidney disease, stage 2 (mild): Code(s): N18.2 - Chronic kidney disease, stage 2 (mild) Status: Acute Assessment and Plan: baseline creatinine around 1.0 - 1.2mg/dl probably due to HTN, vascular disease, and age-related change (3) Acute hypoxemic respiratory failure: Code(s): J96.01 - Acute respiratory failure with hypoxia Status: Acute Assessment and Plan: thought to be due to #3 and #4 currently intubated and on mechanical ventilation oxygenation is worse. (4) Pneumonia: Qualifiers: Pneumonia type: due to unspecified organism Laterality: bilateral Lung location: unspecified part of lung Qualified Code(s): J18.9 - Pneumonia, unspecified organism Code(s): J18.9 - Pneumonia, unspecified organism Status: Acute Assessment and Plan: on vancomycin and ceftriaxone. ID on the case. follow culture data respiratory support (5) COVID-19: Code(s): U07.1 - COVID-19 Status: Acute Assessment and Plan: completed course of dexamethasone and partial treatment with remdesivir Infectious Disease recommendations noted continues on isolation Subjective Date/time seen: 04/18/20 08:23 Interval history: patient is on the vent. he looks more uncomfortable. he is on 3 sedatives. norepi dose is down to 2. can't give a history Review of Systems Review of Systems: ROS unobtainable: Yes unobtainable due to medical condition Exam Narrative: Exam Narrative: WDWN male on vent and sedate in NAD skin no rash or sq nodules head ncat lungs coarse bilaterally cor reg no rub or gallop abd BS+ nontender and soft ext no edema. Objective Data Vital Signs Vital Signs: Vital Signs - 24 hr 04/17/20 08:44 04/17/20 10:00 04/17/20 11:15 Temperature Pulse Rate 69 73 73 Respiratory Rate 24 H 24 H Blood Pressure 96/63 L Pulse Oximetry 93 95 04/17/20 11:16 04/17/20 11:44 04/17/20 11:52 Temperature Pulse Rate 73 68 73 Respiratory Rate 28 H Blood Pressure 96/63 L Pulse Oximetry 92 04/17/20 12:00 04/17/20 12:44 04/17/20 14:00 Temperature 36.1 C L Pulse Rate 74 73 73 Respiratory Rate 25 H 27 H 24 H Blood Pressure 121/76 110/71 Pulse Oximetry 92 91 04/17/20 14:51 04/17/20 16:00 04/17/20 16:30 Temperature 36.4 C Pulse Rate 76 85 82 Respiratory Rate 26 H Blood Pressure 110/64 117/66 Pulse Oximetry 93 94 04/17/20 16:31 04/17/20 17:10 04/17/20 17:31 Temperature Pulse Rate 78 80 79 Respiratory Rate 28 H 26 H Blood Pressure Pulse Oximetry 94 04/17/20 18:00 04/17/20 18:10 04/17/20 18:19 Temperature Pulse Rate 71 88 85 Respiratory Rate 27 H 24 H Blood Pressure 107/59 L Pulse Oximetry 96 91 04/17/20 19:50 04/17/20 20:00 04/17/20 20:09 Temperature 38.0 C H Pulse Rate 90 90 92 Respiratory Rate 16 28 H Blood Pressure 95/60 L 95/60 L Pulse Oximetry 97 96 04/17/20 20:15 04/17/20 20:23 04/17/20 20:30 Temperature 38.0 C H Pulse Rate 88 87 Respiratory Rate 29 H 17 Blood Pressure 100/63 Pulse Oximetry 97 04/17/20 21:00 04/17/20 21:30 04/17/20 22:00 Temperature Pulse Rate 90 90 70 Respiratory Rate 27 H 23 H 27 H Blood Pressure 101/62 104/71 116/72 Pulse Oximetry 98 10
[2020-04-18] MEDS: RAPID SEQUENCE INTUBATION KIT 1 EACH (08:30)
--- NOTE | 2020-04-18 08:36 | PC.NURSE ---
Dr. Santiago to bedside. 50mg Rocuronuim IVP and 50mg Propofol given per
--- NOTE | 2020-04-18 09:03 | WPDINTPN ---
Progress Note: A&P Assessment and Plan (1) Acute hypoxemic respiratory failure: Code(s): J96.01 - Acute respiratory failure with hypoxia Status: Acute Assessment and Plan: acute hypoxemic respiratory failure likely secondary to COVID-19, superimposed bacterial pneumonia - patient intubated 04/14/2020 - continue low tidal volume strategy, CMV mode of ventilation, patient was on FiO2 50%, continue PEEP at 14 but deteriorated this morning likely from the loss of recruitment due to dyssynchrony with the ventilator. Patient was given 50 mg of propofol bolus and 50 mg of rocuronium and FiO2 was increased to 100%. - Peep increased to 16 and since then FiO2 has been decreased to 80% - continue wean FiO2. May need NMB infusion - continue ceftriaxone and vancomycin, MRSA positive in the nares - appreciate infectious disease following the patient - blood and urine cultures are negative, sputum cultures negative so far - sedated with fentanyl, propofol and Versed infusion, - hold diuresis as creatinine has increased. (2) Pneumonia: Qualifiers: Laterality: bilateral Lung location: unspecified part of lung Pneumonia type: due to unspecified organism Qualified Code(s): J18.9 - Pneumonia, unspecified organism Code(s): J18.9 - Pneumonia, unspecified organism Status: Acute Assessment and Plan: chest x-ray shows worsening patchy infiltrates bilaterally could be secondary to COVID-19 and/or superimposed bacterial pneumonia - continue treatment as above (3) Shock: Code(s): R57.9 - Shock, unspecified Status: Acute Assessment and Plan: patient hypotensive requiring Levophed, likely related to sepsis, medication related, positive pressure ventilation related - continue Levophed and maintain mean arterial pressures greater than 65 mmHg - lactic acid was normal - continue antibiotics as above (4) 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 Note that MICHELET may be overestimated if arteries are calcified. - continue heparin infusion (5) Congestive heart failure: Qualifiers: Heart failure chronicity: unspecified Heart failure type: unspecified Qualified Code(s): I50.9 - Heart failure, unspecified Code(s): I50.9 - Heart failure, unspecified Status: Acute Assessment and Plan: history of congestive heart failure - patient on carvedilol, furosemide, sotalol, lisinopril. holding all antihypertensive secondary to patient being on pressors - will repeat echocardiogram to evaluate systolic and diastolic function ECHO 04/17 Summary 1. Complete two-dimensional, color flow and Doppler transthoracic echocardiogram is performed. 2. Technically challenging study. 3. Normal left ventricular size and systolic function. 4. Modest aortic valve sclerosis the valve is not stenotic. 5. Dilated left atrium. 6. Mitral valve annular calcium with trivial MR. 7. Previous exams have commented that there appears to be a prior mitral valve annuloplasty. Quality of this exam precludes that comment. - 2D echo on 11/22/2019 1. Left ventricular chamber dimension is normal. 2. Left ventricular systolic function is normal, estimated at 55-60%. 3. Left atrial chamber dimension is moderately enlarged. 4. There is mild aortic valve sclerosis. 5. There is trace mitral valve regurgitation. 6. 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 7. Compared to the prior exam from February of 2019 there is no apparent sifference. Mitral valve repair continues to be nicely intact. 8. There is some hypokinesis
--- NOTE | 2020-04-18 10:40 | PC.NURSE ---
Updated on plan of care.
--- NOTE | 2020-04-18 10:52 | PCDIET ---
Nutrition Follow-Up Complete: Nutrition Diagnosis: Inadequate oral intake related to oral intubation as evidenced by NPO status. Nutrition Goal: Patient to meet estimated nutritional needs. Goal in progress. Patient receiving Vital 1.2 at 30mL/hr with residuals 250mL and below. MD adding Miralax and continuing Reglan with goal of tube feeding advancement toward goal. Last recorded weight is 138.8kg which is increased from last review. Bowel Motility: Last documented BM on 04/12/20. Labs Reviewed: Hgb (8.9), Hct (26.2), Glu (127), BUN (43), Cr (2.0), Na (127), Alb (2.8) Meds Noted: Rocephin, Fentanyl, Lasix, Heparin, Reglan, Versed, Levophed, Vancomycin, Propofol (rate of 15.5mL/hr provides 409kcal over 24 hour period) Additional Notes: No documented skin breakdown. Will continue to monitor with same goal. Nutrition Monitoring and Evaluation: Follow up every Friday/Friday. Follow daily in ICU rounds.
[2020-04-18] MEDS: CISATRACURIUM BESYLATE 20 MG/10 ML VIAL IV PUSH (11:37)
[2020-04-18] MEDS: PROPOFOL IV EMULSION 100 ML 23.2 MG IV CONT ×3 (11:48→20:16)
[2020-04-18 11:52] LABS: Partial Thromboplastin Time 69.4 SECONDS (22.3-36.8)
--- NOTE | 2020-04-18 11:53 | WPDINFPN2 ---
Progress Note: A&P Assessment and Plan (1) COVID-19: Code(s): U07.1 - COVID-19 Status: Acute Assessment and Plan: 1. Covid 19 viral pneumonia, treated incompletely but no benefit to resuming remdesivir 2. Worsened lung infiltrates with fever, suspect viral but bacterial cause possible. CXR no chnage today. MRSA screen +. New sputum with yeast on smear, I think that this represents a commensal and not pathogenic in this situation 3. Respiratory failure due to above 4. Inferior pole renal mass, suspicious for malignancy from a radiographic standpoint REC Ctx #9, Vanc #7, continue both. Check PCT to help guide length of therapy Subjective Date/time seen: 04/18/20 11:53 Interval history: norepi 3.8 mcg. Lightly sedated Exam Narrative: Exam Narrative: t max 38.0 Const: General: no acute distress Resp: Effort & Inspection: normal respiratory effort Auscultation: clear to auscultation bilaterally and diminished lung sounds Cardio: Rate: regular rate Rhythm: regular rhythm Heart sounds: no murmurs GI: Inspection: distended GI Palp: Yes Soft to palpation, No Tenderness to palpation present (GI) and No Guarding due to palpation present (GI) Urinary Catheter: Urinary Catheter: patent and draining and urine clear Skin: General skin exam: normal color and no rashes or lesions noted Objective Data Vital Signs Vital Signs: Vital Signs - 24 hr 04/17/20 12:00 04/17/20 12:44 04/17/20 14:00 Temperature 36.1 C L Pulse Rate 74 73 73 Respiratory Rate 25 H 27 H 24 H Blood Pressure 121/76 110/71 Pulse Oximetry 92 91 04/17/20 14:51 04/17/20 16:00 04/17/20 16:30 Temperature 36.4 C Pulse Rate 76 85 82 Respiratory Rate 26 H Blood Pressure 110/64 117/66 Pulse Oximetry 93 94 04/17/20 16:31 04/17/20 17:10 04/17/20 17:31 Temperature Pulse Rate 78 80 79 Respiratory Rate 28 H 26 H Blood Pressure Pulse Oximetry 94 04/17/20 18:00 04/17/20 18:10 04/17/20 18:19 Temperature Pulse Rate 71 88 85 Respiratory Rate 27 H 24 H Blood Pressure 107/59 L Pulse Oximetry 96 91 04/17/20 19:50 04/17/20 20:00 04/17/20 20:09 Temperature 38.0 C H Pulse Rate 90 90 92 Respiratory Rate 16 28 H Blood Pressure 95/60 L 95/60 L Pulse Oximetry 97 96 04/17/20 20:15 04/17/20 20:23 04/17/20 20:30 Temperature 38.0 C H Pulse Rate 88 87 Respiratory Rate 29 H 17 Blood Pressure 100/63 Pulse Oximetry 97 04/17/20 21:00 04/17/20 21:30 04/17/20 22:00 Temperature Pulse Rate 90 90 70 Respiratory Rate 27 H 23 H 27 H Blood Pressure 101/62 104/71 116/72 Pulse Oximetry 98 100 95 04/17/20 22:50 04/17/20 22:52 04/17/20 23:00 Temperature Pulse Rate 76 76 73 Respiratory Rate 26 H 25 H Blood Pressure Pulse Oximetry 96 04/17/20 23:14 04/18/20 00:00 04/18/20 01:00 Temperature 36.6 C Pulse Rate 73 72 70 Respiratory Rate 27 H 29 H 27 H Blood Pressure 99/66 L 122/73 Pulse Oximetry 95 96 98 04/18/20 01:21 04/18/20 01:50 04/18/20 02:00 Temperature Pulse Rate 72 71 70 Respiratory Rate 26 H 27 H Blood Pressure 122/73 111/79 Pulse Oximetry 96 93 04/18/20 02:30 04/18/20 03:03 04/18/20 03:04 Temperature Pulse Rate 70 70 68 Respiratory Rate 28 H 26 H Blood Pressure 100/65 100/65 Pulse Oximetry 92 04/18/20 03:05 04/18/20 03:09 04/18/20 04:00 Temperature 36.6 C Pulse Rate 68 66 68 Respiratory Rate 25 H 26 H 27 H Blood Pressure 100/65 109/74 Pulse Oximetry 93 94 94 04/18/20 04:41 04/18/20 04:42 04/18/20 05:08 Temperature Pulse Rate 64 70 65 Respiratory Rate 26 H Blood Pressure 101/68 Pulse Oximetry 97 04/18/20 05:11 04/18/20 05:55 04/18/20 06:00 Temperature Pulse Rate 74 75 73 Respiratory Rate 29 H 28 H Blood Pressure 109/77 Pulse Oximetry 95 04/18/20 06:02 04/18/20 06:04 04/18/20 06:59 Temperature Pulse Rate 66 71 77 Respiratory Rate 30 H 30 H 35 H Blood Pressure Pulse Oximetry
[2020-04-18] MEDS: polyethylene glycoL 3350 17 GM POWD.PACK PO (11:55)
--- NOTE | 2020-04-18 13:34 | PM.EVENT ---
Event Note Event Note Event Note: patient dropped his saturation once rocuronium wore off. I will start patient on NMB infusion.
[2020-04-18] MEDS: HEPARIN SOD/D5W 100 UNITS/ML 25,000 UNITS/250 ML BAG 23 UNITS IV CONT (13:52)
--- NOTE | 2020-04-18 14:44 | PM.IMPN ---
Progress Note: A&P Assessment and Plan (1) Acute hypoxemic respiratory failure: Code(s): J96.01 - Acute respiratory failure with hypoxia Status: Acute Assessment and Plan: Due to covid 19 and possible concomitant bacterial PNA. Intubated now, critical care managing vent. 04/18/20 14:44 patient is 69-year-old male with a hypoxic respiratory failure with COVID-19 pneumonia superimposed with bacterial pneumonia patient is currently intubated being treated with Rocephin and vancomycin, patient is off flolan, on fentanyl 150mcg and versed 4mg/hr for sedation, patient is on levophed 8mcg/naida and on pyralactic, seen by ID and managed by children's court magistrate, D/W children's court magistrate patient still in critical condition planning to wean the patient off ventilator as tolerated and further recommendation to follow, today 04/18 patient on vent unable to provide any review of symptoms, family will decided about further care after two or three days if there is no improvement, toda on 04/[address] Mcgill unable to wean patient of vent and prognosis is poor, patient is seen outside his glass door (2) Pneumonia: Qualifiers: Pneumonia type: due to unspecified organism Laterality: bilateral Lung location: unspecified part of lung Qualified Code(s): J18.9 - Pneumonia, unspecified organism Code(s): J18.9 - Pneumonia, unspecified organism Status: Acute Assessment and Plan: He was diagnosed with COVID on 03/31/2020 He has been started on ceftriaxone and vancomycin for possible superimposed PNA. (3) COVID-19: Code(s): U07.1 - COVID-19 Status: Acute Assessment and Plan: He completed a course of dexamethasone, and received remdesivir during his previous hospitalization but not a full course. Continue isolation precautions. (4) Paroxysmal atrial fibrillation: Code(s): I48.0 - Paroxysmal atrial fibrillation Status: Chronic Assessment and Plan: He is currently in a sinus rhythm with occasional atrial ectopy. No longer on long-term anticoagulation for unclear reasons. His carvedilol and sotalol are on hold due to low Bp (5) Congestive heart failure: Qualifiers: Heart failure type: unspecified Heart failure chronicity: unspecified Qualified Code(s): I50.9 - Heart failure, unspecified Code(s): I50.9 - Heart failure, unspecified Status: Acute Assessment and Plan: Diastolic congestive heart failure appears clinically compensated, (6) Elevated troponin: Code(s): R79.89 - Other specified abnormal findings of blood chemistry Status: Acute Assessment and Plan: Mildly elevated on admission likely demand ischemia from PNA, resp distress. Subjective Date/time seen: 04/18/20 14:44 patient is 69-year-old male with a hypoxic respiratory failure with COVID-19 pneumonia superimposed with bacterial pneumonia patient is currently intubated being treated with Rocephin and vancomycin, patient is off flolan, on fentanyl 150mcg and versed 4mg/hr for sedation, patient is on levophed 8mcg/naida and on pyralactic, seen by ID and managed by children's court magistrate, D/W children's court magistrate patient still in critical condition planning to wean the patient off ventilator as tolerated and further recommendation to follow, today 04/18 patient on vent unable to provide any review of symptoms, family will decided about further care after two or three days if there is no improvement, cristiane on 04/[address] Mcgill unable to wean patient of vent and prognosis is poor, patient is seen outside his glass door Review of Systems Review of Systems: ROS unobtainable: Yes unobtainable due to endotrac
[2020-04-18 19:13] LABS: Partial Thromboplastin Time 93.1 SECONDS (22.3-36.8)
[2020-04-19] VITALS (70 sets, daily range): BP systolic 77–131; BP diastolic 52–86; PULSE 57–85; RESP 21–26; TEMP 36–37.4; O2SAT 92–100
[2020-04-19] MEDS: HEPARIN SOD/D5W 100 UNITS/ML 25,000 UNITS/250 ML BAG 23 UNITS IV CONT (00:24)
[2020-04-19] MEDS: PROPOFOL IV EMULSION 100 ML 23.2 MG IV CONT (00:32)
[2020-04-19 00:41] LABS: Partial Thromboplastin Time 85.1 SECONDS (22.3-36.8)
[2020-04-19 00:44] LABS: Vancomycin Trough 25.2 ug/mL (10.0-20.0)
[2020-04-19] MEDS: NOREPINEPHRINE 8 MG/D5W 250 ML 8 MG/250 ML BAG 15 MG IV CONT (01:40)
[2020-04-19 04:11] LABS: Alveolar/Arterial O2 Gradient 304.9 mmHg; Base Excess ABG -8.5 mEq/l (+/-2.0); Carboxyhemoglobin 0.3 % THb (0-2.0); HCO3 ABG 18.3 mEq/l (22.0-26.0); Methemoglobin ABG 0.2 %THb (0-1.5); Oxygen Content ABG 13.6 %vol (16.0-22.0); Oxygen Saturation ABG 98.5 % (95.0-100.0); Oxyhemoglobin 97.5 % THb (90.0-100.0); PCO2 ABG 43.4 mmHg (35.0-45.0); PO2 ABG 147.6 mmHg (80.0-100.0); PO2 FiO2 Ratio Arterial Blood 2.11 %; Total Hemoglobin 9.7 g/dL (12.0-18.0); pH ABG 7.243 (7.350-7.450)
[2020-04-19 04:12] LABS: Arterial Blood Gas PEEP 16 cmH2O; Arterial Blood Gas Tidal Volume 450 ml; Arterial Blood Gas Vent Mode CMV; Arterial Blood Gas Ventilator rate 24 /MIN; Device VENTILATOR; Modified Allen's Test Unable to perform; Site Drawn LEFT RADIAL
[2020-04-19 04:34] LABS: Fractional Inspired Oxygen 60 %
[2020-04-19] MEDS: SODIUM BICARBONATE 8.4% 50 MEQ/50 ML VIAL 100 MEQ IV PUSH (04:40)
[2020-04-19 04:58] LABS: Hematocrit 24.8 % (42.0-52.0); Hemoglobin 8.2 g/dL (14.0-18.0); Mean Corpuscular HGB Conc 33.1 g/dl (32-36); Mean Corpuscular Hemoglobin 30.6 pg (26-34); Mean Corpuscular Volume 92.5 fl (80-100); Mean Platelet Volume 10.4 fl (7.4-10.4); Platelet Count Result 254 k/mm3 (150-375); Red Blood Count 2.68 M/mm3 (4.6-6.20); Red Cell Distribution Width 15.9 % (11.5-14.5); White Blood Count 5.1 K/mm3 (4.5-10.0)
[2020-04-19] MEDS: METOCLOPRAMIDE HCL INJ 10 MG/2 ML VIAL IV PUSH ×4 (05:14→23:09)
[2020-04-19 05:19] LABS: Albumin Level 2.5 g/dL (3.5-5.1); Anion Gap 7 mmol/L (8-16); Blood Urea Nitrogen 54 mg/dL (9-20); Calcium 8.3 mg/dL (8.4-10.2); Carbon Dioxide 24 mmol/L (22-30); Chloride 96 mmol/L (98-107); Estimated CRCL calculation 28 ml/min; Estimated Glomerular Filt Rate 19; Glucose 98 mg/dL (75-110); Lactate Dehydrogenase 353 U/L (313-618); Potassium 4.6 mmol/L (3.4-5.0); Sodium 127 mmol/L (137-145)
[2020-04-19 05:21] LABS: Partial Thromboplastin Time 90.6 SECONDS (22.3-36.8)
[2020-04-19 05:22] LABS: D Dimer 3.77 ug/mL (<0.48)
[2020-04-19 06:01] LABS: CRP 31.9 mg/dL (<1.0)
[2020-04-19] MEDS: PROPOFOL IV EMULSION 100 ML 11.6 MG IV CONT ×3 (06:17→19:37)
--- NOTE | 2020-04-19 08:00 | WPDINTPN ---
Progress Note: A&P Assessment and Plan (1) Acute hypoxemic respiratory failure: Code(s): J96.01 - Acute respiratory failure with hypoxia Status: Acute Assessment and Plan: acute hypoxemic respiratory failure likely secondary to COVID-19, superimposed bacterial pneumonia - patient intubated 04/14/2020 - continue low tidal volume strategy, CMV mode of ventilation, 04/18 patient deteriorated and PEEP was increased to 16 and FiO2 was back up to 100%. - Despite increased sedation patient maintained dyssynchrony with the ventilator. it improved with 50 mg of rocuronium but patient decided again once dose effect wore off. Patient was started on Nimbex infusion and since then oxygen requirement has improved. - Patient on 16 of PEEP and 50% FiO2 this morning. I have decreased the PEEP to 14 and FiO2 is been weaned down to 40%.. - continue ceftriaxone and vancomycin, MRSA positive in the nares - appreciate infectious disease following the patient - blood and urine cultures are negative, sputum cultures negative so far - sedated with fentanyl, propofol and Versed infusion And paralyzed with Nimbex infusion - diuresis has been held due to worsening creatinine- please see below (2) Pneumonia: Qualifiers: Pneumonia type: due to unspecified organism Laterality: bilateral Lung location: unspecified part of lung Qualified Code(s): J18.9 - Pneumonia, unspecified organism Code(s): J18.9 - Pneumonia, unspecified organism Status: Acute Assessment and Plan: chest x-ray shows worsening patchy infiltrates bilaterally could be secondary to COVID-19 and/or superimposed bacterial pneumonia - continue treatment as above (3) Shock: Code(s): R57.9 - Shock, unspecified Status: Acute Assessment and Plan: patient hypotensive requiring Levophed, likely related to sepsis, medication related, positive pressure ventilation related - continue Levophed and maintain mean arterial pressures greater than 65 mmHg - lactic acid was normal - continue antibiotics as above (4) 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 Note that MICHELET may be overestimated if arteries are calcified. cardiology was consulted US arterial duplex LE BI was done which showed Small amount of scattered atherosclerotic plaque with no hemodynamically significant stenosis on grayscale imaging and with brisk systolic upstrokes throughout the arteries of both lower limbs. - discussed with Dr. Delarosa who recommended discontinuing heparin infusion and maintaining patient on aspirin and Plavix (5) Congestive heart failure: Qualifiers: Heart failure type: unspecified Heart failure chronicity: unspecified Qualified Code(s): I50.9 - Heart failure, unspecified Code(s): I50.9 - Heart failure, unspecified Status: Acute Assessment and Plan: history of congestive heart failure - patient on carvedilol, furosemide, sotalol, lisinopril. holding all antihypertensive secondary to patient being on pressors - will repeat echocardiogram to evaluate systolic and diastolic function ECHO 04/17 Summary 1. Complete two-dimensional, color flow and Doppler transthoracic echocardiogram is performed. 2. Technically challenging study. 3. Normal left ventricular size and systolic function. 4. Modest aortic valve sclerosis the valve is not stenotic. 5. Dilated left atrium. 6. Mitral valve annular calcium with trivial MR. 7. Previous exams have commented that there appears to be a prior mitral valve annuloplasty. Quality of this exam precludes that com
[2020-04-19] MEDS: ASPIRIN 81 MG ENTERIC TABLET PO (08:06)
[2020-04-19] MEDS: polyethylene glycoL 3350 17 GM POWD.PACK PO (08:06)
[2020-04-19] MEDS: PANTOPRAZOLE SODIUM IV 40 MG VIAL IV PUSH (08:06)
--- NOTE | 2020-04-19 09:34 | PM.CNCAR ---
Assessment and Plan Assessment and plan (1) CAD (coronary artery disease): Qualifiers: Coronary Disease-Associated Artery/Lesion type: bypass graft [place] vs. transplanted heart: [place] heart Associated angina: without angina Qualified Code(s): I25.810 - Atherosclerosis of coronary artery bypass graft(s) without angina pectoris Code(s): I25.10 - Atherosclerotic heart disease of [place] coronary artery without angina pectoris Status: Chronic Assessment and Plan: Status post coronary bypass surgery, he has been followed by Dr. Sue, this evaluation is only for peripheral vascular disease, for further cardiac questions please refer to primary purchasing manager/sales Dr. Sue if he needs to be seen by him (2) CKD (chronic kidney disease) stage 3, GFR 30-59 ml/min: Code(s): N18.3 - Chronic kidney disease, stage 3 (moderate) Status: Chronic (3) Acute respiratory failure with hypoxia: Code(s): J96.01 - Acute respiratory failure with hypoxia Status: Acute Assessment and Plan: Currently on the vent, prognosis guarded (4) Paroxysmal atrial fibrillation: Code(s): I48.0 - Paroxysmal atrial fibrillation Status: Chronic (5) Peripheral vascular disease: Code(s): I73.9 - Peripheral vascular disease, unspecified Status: Acute Assessment and Plan: I reviewed the images for the MICHELET and the arterial duplex, he seems to have good flow up to the popliteal, on the right side he has good anterior tibial pulses, even though visualization did not show good flow and the images were not optimal for that, but however he seems to have good flow on the right foot with moderate disease on the posterior tibial. MICHELET revealing decreased left TBI and normal left MICHELET, consistent with left-sided arterial occlusive disease. Note that MICHELET may be overestimated if arteries are calcified. There waveform seems to be appropriate, and the quality of the study seems to be appropriate, we ordered a duplex which revealed patent femoral SFA and popliteal bilaterally, the quality of the study is good, but shows no visualization of right peroneal vessel, possibly is absent or technically impossible to to image, and showed an right-sided posterior tibial proximal disease which is not occlusive. On the left side popliteal is patent, there is no visualization of the peroneal or anterior tibial, possibly due to technical difficulty, but the posterior tibial seems to have good flow and good velocity. The study seems to be fair quality for the upper portion and suboptimal for the distal vessel visualization, the interpretation did not comment on the quality of distal vessel visualization which could mask the abnormality that is seems. But overall there is good flow in the proximal vessels all the way until the popliteal. With that in mind is no indication for anticoagulation at this time nor I see any indication for invasive procedure, he would need continued medical treatment and blood pressure support. I think the he has decreased pulses on occasions and this study was not very optimal for distal flow due to variation of blood pressure and due to medications for blood pressure support. 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
[2020-04-19] MEDS: BISACODYL 10 MG SUPPOSITORY RECTAL (11:00)
--- NOTE | 2020-04-19 11:00 | PCDIET ---
ICU Rounding Note: Tube feedings held for suboptimal tolerance. Residuals up to 350mL, despite addition of Reglan and continued Miralax. MD adding Dulcolax and considering trickle feedings later today. Recommend Nepro at 10-20mL/hr. Last recorded weight is 142.8kg which is increased from last review. Worsening renal function and urine output noted; family deciding re: plan of care; plan for dialysis if aggressive treatment is continued. Bowel Motility: No new BM - Reglan and Miralax continued; Dulcolax added today Labs Reviewed: Hgb (8.2), Hct (24.8), BUN (54), Cr (3.2), Na (127), Alb (2.5), PO4 (7.0) Meds Noted: Rocephin, Nimbex, Fentanyl, Heparin, Reglan, Versed, Levophed, Protonix, Miralax, Vancomycin, Propofol (rate of 11.6mL/hr provides 306kcal per day) Additional Notes: Corrected calcium in normal limits. No documented skin breakdown. Following daily in ICU rounds. Assessing/reassessing every Friday/Friday.
--- NOTE | 2020-04-19 13:22 | WPDINFPN2 ---
Progress Note: A&P Assessment and Plan (1) COVID-19: Code(s): U07.1 - COVID-19 Status: Acute Assessment and Plan: 1. Covid 19 viral pneumonia, treated incompletely 2. Worsened lung infiltrates with fever, suspect viral but bacterial cause possible. CXR no change today. MRSA screen +. New sputum with yeast, representing a commensal and not pathogenic 3. Respiratory failure due to above 4. Inferior pole renal mass, suspicious for malignancy from a radiographic standpoint REC Ctx #10, Vanc #8, continue both. PCT in process to help guide length of therapy Subjective Date/time seen: 04/19/20 13:22 Interval history: paralysis back on, sedated. norepi 6 mcg Exam Narrative: Exam Narrative: afebrile since last visit Const: General: no acute distress Resp: Effort & Inspection: normal respiratory effort Auscultation: clear to auscultation bilaterally Cardio: Rate: regular rate Rhythm: regular rhythm Heart sounds: no gallops and no murmurs GI: Percussion: Yes normal to percussion Auscultation: abnormal bowel sounds Other: no masses Urinary Catheter: Urinary Catheter: patent and draining and urine clear Skin: General skin exam: normal color and no rashes or lesions noted Extrem: General: normal to inspection Objective Data Vital Signs Vital Signs: Vital Signs - 24 hr 04/18/20 13:47 04/18/20 14:00 04/18/20 14:26 Temperature Pulse Rate 94 89 86 Respiratory Rate 24 H 24 H Blood Pressure 76/51 L Pulse Oximetry 100 100 04/18/20 14:30 04/18/20 14:45 04/18/20 15:00 Temperature Pulse Rate 85 85 84 Respiratory Rate 24 H Blood Pressure 80/51 L 86/59 L 85/59 L Pulse Oximetry 04/18/20 16:00 04/18/20 16:32 04/18/20 17:00 Temperature 36.6 C Pulse Rate 80 80 74 Respiratory Rate 24 H 24 H Blood Pressure 84/58 L 132/61 119/67 Pulse Oximetry 98 04/18/20 17:40 04/18/20 18:00 04/18/20 19:38 Temperature Pulse Rate 82 81 81 Respiratory Rate 24 H 24 H Blood Pressure 105/60 114/57 L Pulse Oximetry 100 99 04/18/20 19:43 04/18/20 19:48 04/18/20 19:50 Temperature Pulse Rate 81 82 82 Respiratory Rate 24 H 24 H 24 H Blood Pressure 114/57 L Pulse Oximetry 04/18/20 20:00 04/18/20 20:15 04/18/20 20:16 Temperature 36.6 C Pulse Rate 78 74 74 Respiratory Rate 24 H 24 H 24 H Blood Pressure 128/63 Pulse Oximetry 99 04/18/20 20:17 04/18/20 20:30 04/18/20 21:00 Temperature Pulse Rate 78 76 70 Respiratory Rate 24 H 24 H Blood Pressure 128/63 125/64 123/62 Pulse Oximetry 100 100 04/18/20 21:30 04/18/20 21:31 04/18/20 21:39 Temperature Pulse Rate 74 77 75 Respiratory Rate 24 H Blood Pressure 114/55 L 114/55 L Pulse Oximetry 99 04/18/20 21:40 04/18/20 22:00 04/18/20 23:00 Temperature Pulse Rate 78 78 69 Respiratory Rate 24 H 24 H 24 H Blood Pressure 114/55 L 115/57 L 110/53 L Pulse Oximetry 100 100 100 04/18/20 23:08 04/18/20 23:21 04/18/20 23:56 Temperature Pulse Rate 68 72 61 Respiratory Rate 24 H 24 H Blood Pressure 110/53 L Pulse Oximetry 100 99 04/19/20 00:00 04/19/20 00:20 04/19/20 00:32 Temperature 36.0 C L Pulse Rate 71 65 68 Respiratory Rate 24 H 24 H 24 H Blood Pressure 108/55 L 104/53 L Pulse Oximetry 100 04/19/20 01:30 04/19/20 01:40 04/19/20 01:42 Temperature Pulse Rate 64 66 68 Respiratory Rate 24 H 24 H Blood Pressure 96/57 L 96/57 L Pulse Oximetry 100 04/19/20 01:45 04/19/20 02:00 04/19/20 02:01 Temperature Pulse Rate 66 64 58 L Respiratory Rate 24 H 24 H 24 H Blood Pressure 96/57 L 106/53 L Pulse Oximetry 100 04/19/20 02:30 04/19/20 03:00 04/19/20 03:01 Temperature Pulse Rate 64 60 67 Respiratory Rate 24 H 24 H 24 H Blood Pressure 98/53 L 91/60 L Pulse Oximetry 100 100 04/19/20 03:02 04/19/20 03:04 04/19/20 03:30 Temperature Pulse Rate 66 62 83 Respiratory Rate 24 H 24 H 21 H Blood Pressure 91/60 L 131/75 Pulse Oxime
--- NOTE | 2020-04-19 19:43 | P.PNNP_ITS ---
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 * He made 750cc of urine during the day today. * and son are discussing aggressiveness of care. * In the meantime his creatinine is risen again from 2-3.2. If he starts making more urine than we can wait and watch. Will discuss with Dr. Santiago in the morning concerning the pluses and minuses of initiating dialysis in this patient. Electrolytes okay right now. Fluid removal might be difficult being on the norepinephrine but we give it a try if he thinks that that is important for his pulmonary situation. Right now is on 40% oxygen, his minute volume is 12 and his peak airway pressure is in the 30s. (2) Chronic kidney disease, stage 2 (mild): Code(s): N18.2 - Chronic kidney disease, stage 2 (mild) Status: Acute Assessment and Plan: * baseline creatinine around 1.0 - 1.2mg/dl * probably due to HTN, vascular disease, and age-related change (3) Acute hypoxemic respiratory failure: Code(s): J96.01 - Acute respiratory failure with hypoxia Status: Acute Assessment and Plan: * thought to be due to #3 and #4 * currently intubated and on mechanical ventilation * oxygenation is worse. (4) Pneumonia: Qualifiers: Pneumonia type: due to unspecified organism Laterality: bilateral Lung location: unspecified part of lung Qualified Code(s): J18.9 - Pneumonia, unspecified organism Code(s): J18.9 - Pneumonia, unspecified organism Status: Acute Assessment and Plan: * on vancomycin and ceftriaxone. * ID on the case. * follow culture data * respiratory support (5) COVID-19: Code(s): U07.1 - COVID-19 Status: Acute Assessment and Plan: * completed course of dexamethasone and partial treatment with remdesivir * Infectious Disease recommendations noted * continues on isolation Subjective Date/time seen: 04/19/20 19:43 Interval history: patient is on the vent. he is on 2 sedatives and cisatracurium. Resting comfortably. norepi dose is Up to 6. can't give a history Exam Narrative: Exam Narrative: WDWN male on vent and sedate in NAD skin no rash or sq nodules head ncat lungs coarse bilaterally cor reg no rub or gallop abd BS+ nontender and soft ext no edema. Objective Data Vital Signs Vital Signs: Vital Signs - 24 hr 04/18/20 19:48 04/18/20 19:50 04/18/20 20:00 Temperature 36.6 C Pulse Rate 82 82 78 Respiratory Rate 24 H 24 H 24 H Blood Pressure 128/63 Pulse Oximetry 99 04/18/20 20:15 04/18/20 20:16 04/18/20 20:17 Temperature Pulse Rate 74 74 78 Respiratory Rate 24 H 24 H Blood Pressure 128/63 Pulse Oximetry 04/18/20 20:30 04/18/20 21:00 0
--- NOTE | 2020-04-19 19:43 | PM.PNNEP ---
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 He made 750cc of urine during the day today. and son are discussing aggressiveness of care. In the meantime his creatinine is risen again from 2-3.2. If he starts making more urine than we can wait and watch. Will discuss with Dr. Santiago in the morning concerning the pluses and minuses of initiating dialysis in this patient. Electrolytes okay right now. Fluid removal might be difficult being on the norepinephrine but we give it a try if he thinks that that is important for his pulmonary situation. Right now is on 40% oxygen, his minute volume is 12 and his peak airway pressure is in the 30s. (2) Chronic kidney disease, stage 2 (mild): Code(s): N18.2 - Chronic kidney disease, stage 2 (mild) Status: Acute Assessment and Plan: baseline creatinine around 1.0 - 1.2mg/dl probably due to HTN, vascular disease, and age-related change (3) Acute hypoxemic respiratory failure: Code(s): J96.01 - Acute respiratory failure with hypoxia Status: Acute Assessment and Plan: thought to be due to #3 and #4 currently intubated and on mechanical ventilation oxygenation is worse. (4) Pneumonia: Qualifiers: Pneumonia type: due to unspecified organism Laterality: bilateral Lung location: unspecified part of lung Qualified Code(s): J18.9 - Pneumonia, unspecified organism Code(s): J18.9 - Pneumonia, unspecified organism Status: Acute Assessment and Plan: on vancomycin and ceftriaxone. ID on the case. follow culture data respiratory support (5) COVID-19: Code(s): U07.1 - COVID-19 Status: Acute Assessment and Plan: completed course of dexamethasone and partial treatment with remdesivir Infectious Disease recommendations noted continues on isolation Subjective Date/time seen: 04/19/20 19:43 Interval history: patient is on the vent. he is on 2 sedatives and cisatracurium. Resting comfortably. norepi dose is Up to 6. can't give a history Exam Narrative: Exam Narrative: WDWN male on vent and sedate in NAD skin no rash or sq nodules head ncat lungs coarse bilaterally cor reg no rub or gallop abd BS+ nontender and soft ext no edema. Objective Data Vital Signs Vital Signs: Vital Signs - 24 hr 04/18/20 19:48 04/18/20 19:50 04/18/20 20:00 Temperature 36.6 C Pulse Rate 82 82 78 Respiratory Rate 24 H 24 H 24 H Blood Pressure 128/63 Pulse Oximetry 99 04/18/20 20:15 04/18/20 20:16 04/18/20 20:17 Temperature Pulse Rate 74 74 78 Respiratory Rate 24 H 24 H Blood Pressure 128/63 Pulse Oximetry 04/18/20 20:30 04/18/20 21:00 04/18/20 21:30 Temperature Pulse Rate 76 70 74 Respiratory Rate 24 H 24 H 24 H Blood Pressure 125/64 123/62 114/55 L Pulse Oximetry 100 100 04/18/20 21:31 04/18/20 21:39 04/18/20 21:40 Temperature Pulse Rate 77 75 78 Respiratory Rate 24 H Blood Pressure 114/55 L 114/55 L Pulse Oximetry 99 100 04/18/20 22:00 04/18/20 23:00 04/18/20 23:08 Temperature Pulse Rate 78 69 68 Respiratory Rate 24 H 24 H 24 H Blood Pressure 115/57 L 110/53 L 110/53 L Pulse Oximetry 100 100 04/18/20 23:21 04/18/20 23:56 04/19/20 00:00 Temperature 36.0 C L Pulse Rate 72 61 71 Respiratory Rate 24 H 24 H Bl
[2020-04-19] MEDS: NOREPINEPHRINE 8 MG/D5W 250 ML 8 MG/250 ML BAG 11.3 MG IV CONT (20:38)
[2020-04-19] MEDS: HEPARIN SODIUM 5,000 UNITS/ML VIAL 5000 UNITS SUB-Q (20:43)
[2020-04-20] VITALS (61 sets, daily range): BP systolic 69–128; BP diastolic 53–76; PULSE 50–763; RESP 26–99; TEMP 35.6–37.1; O2SAT 26–100
[2020-04-20] MEDS: PROPOFOL IV EMULSION 100 ML 23.2 MG IV CONT (00:29)
[2020-04-20 04:26] LABS: Hematocrit 25.8 % (42.0-52.0); Hemoglobin 8.6 g/dL (14.0-18.0); Mean Corpuscular HGB Conc 33.3 g/dl (32-36); Mean Corpuscular Hemoglobin 29.9 pg (26-34); Mean Corpuscular Volume 89.6 fl (80-100); Mean Platelet Volume 10.4 fl (7.4-10.4); Platelet Count Result 272 k/mm3 (150-375); Red Blood Count 2.88 M/mm3 (4.6-6.20); Red Cell Distribution Width 15.5 % (11.5-14.5); White Blood Count 6.4 K/mm3 (4.5-10.0)
[2020-04-20 04:42] LABS: Alveolar/Arterial O2 Gradient 305.9 mmHg; Base Excess ABG -6.8 mEq/l (+/-2.0); Carboxyhemoglobin 0.6 % THb (0-2.0); Fractional Inspired Oxygen 60 %; HCO3 ABG 19.9 mEq/l (22.0-26.0); Methemoglobin ABG 0.2 %THb (0-1.5); Oxygen Content ABG 16.8 %vol (16.0-22.0); Oxygen Saturation ABG 92.6 % (95.0-100.0); Oxyhemoglobin 91.6 % THb (90.0-100.0); PCO2 ABG 44.5 mmHg (35.0-45.0); PO2 FiO2 Ratio Arterial Blood 1.22 %; Reduced Hemoglobin 7.6 %THb (0-5.0)
[2020-04-20 04:43] LABS: Device VENTILATOR; Modified Allen's Test Pass; Site Drawn LEFT RADIAL; pH ABG 7.269 (7.350-7.450)
[2020-04-20 04:44] LABS: Arterial Blood Gas PEEP 14 cmH2O; Arterial Blood Gas Tidal Volume 450 ml; Arterial Blood Gas Vent Mode CMV; Arterial Blood Gas Ventilator rate 26 /MIN
[2020-04-20 04:47] LABS: Albumin Level 2.7 g/dL (3.5-5.1); Anion Gap 10 mmol/L (8-16); Blood Urea Nitrogen 62 mg/dL (9-20); Calcium 8.6 mg/dL (8.4-10.2); Carbon Dioxide 19 mmol/L (22-30); Chloride 93 mmol/L (98-107); Glucose 111 mg/dL (75-110); Potassium 4.6 mmol/L (3.4-5.0); Sodium 122 mmol/L (137-145)
[2020-04-20 04:53] LABS: Estimated CRCL calculation 29 ml/min; Estimated Glomerular Filt Rate 20
[2020-04-20] MEDS: PROPOFOL IV EMULSION 100 ML 19.3 MG IV CONT (05:16)
[2020-04-20] MEDS: METOCLOPRAMIDE HCL INJ 10 MG/2 ML VIAL IV PUSH ×2 (05:27→11:32)
[2020-04-20] MEDS: SODIUM BICARBONATE 8.4% 50 MEQ/50 ML VIAL 100 MEQ IV PUSH (05:54)
[2020-04-20] MEDS: PANTOPRAZOLE SODIUM IV 40 MG VIAL IV PUSH (08:20)
[2020-04-20] MEDS: HEPARIN SODIUM 5,000 UNITS/ML VIAL 5000 UNITS SUB-Q (08:20)
[2020-04-20] MEDS: ASPIRIN 81 MG CHEWABLE TABLET FEED TUBE (08:20)
[2020-04-20] MEDS: PROPOFOL IV EMULSION 100 ML 15.5 MG IV CONT (09:14)
[2020-04-20] MEDS: SODIUM BICARBONATE TAB 650 MG TABLET 1300 MG FEED TUBE (09:36)
--- NOTE | 2020-04-20 10:27 | WPDINTPN ---
Progress Note: A&P Assessment and Plan (1) Acute hypoxemic respiratory failure: Code(s): J96.01 - Acute respiratory failure with hypoxia Status: Acute Assessment and Plan: acute hypoxemic respiratory failure likely secondary to COVID-19, superimposed bacterial pneumonia - patient intubated 04/14/2020 - continue low tidal volume strategy, CMV mode of ventilation, 04/18 patient deteriorated and PEEP was increased to 16 and FiO2 was back up to 100%. - Despite increased sedation patient maintained dyssynchrony with the ventilator. it improved with 50 mg of rocuronium but patient decided again once dose effect wore off. Patient was started on Nimbex infusion and since then oxygen requirement has improved. - Patient on 14 of PEEP and 60% FiO2 this morning. continue to wean down FiO2 - continue ceftriaxone and vancomycin, MRSA positive in the nares - appreciate infectious disease following the patient - blood and urine cultures are negative, sputum cultures negative so far - sedated with fentanyl, propofol and Versed infusion And paralyzed with Nimbex infusion - diuresis has been held due to worsening creatinine- please see below (2) Pneumonia: Qualifiers: Pneumonia type: due to unspecified organism Laterality: bilateral Lung location: unspecified part of lung Qualified Code(s): J18.9 - Pneumonia, unspecified organism Code(s): J18.9 - Pneumonia, unspecified organism Status: Acute Assessment and Plan: chest x-ray shows worsening patchy infiltrates bilaterally could be secondary to COVID-19 and/or superimposed bacterial pneumonia - continue treatment as above (3) Shock: Code(s): R57.9 - Shock, unspecified Status: Acute Assessment and Plan: patient hypotensive requiring Levophed, likely related to sepsis, medication related, positive pressure ventilation related - continue Levophed and maintain mean arterial pressures greater than 65 mmHg - lactic acid was normal - continue antibiotics as above (4) 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 Note that MICHELET may be overestimated if arteries are calcified. cardiology was consulted US arterial duplex LE BI was done which showed Small amount of scattered atherosclerotic plaque with no hemodynamically significant stenosis on grayscale imaging and with brisk systolic upstrokes throughout the arteries of both lower limbs. - discussed with Dr. Delarosa who recommended discontinuing heparin infusion and maintaining patient on aspirin and Plavix (5) Congestive heart failure: Qualifiers: Heart failure type: unspecified Heart failure chronicity: unspecified Qualified Code(s): I50.9 - Heart failure, unspecified Code(s): I50.9 - Heart failure, unspecified Status: Acute Assessment and Plan: history of congestive heart failure - patient on carvedilol, furosemide, sotalol, lisinopril. holding all antihypertensive secondary to patient being on pressors - will repeat echocardiogram to evaluate systolic and diastolic function ECHO 04/17 Summary 1. Complete two-dimensional, color flow and Doppler transthoracic echocardiogram is performed. 2. Technically challenging study. 3. Normal left ventricular size and systolic function. 4. Modest aortic valve sclerosis the valve is not stenotic. 5. Dilated left atrium. 6. Mitral valve annular calcium with trivial MR. 7. Previous exams have commented that there appears to be a prior mitral valve annuloplasty. Quality of this exam precludes that comment. - 2D echo on 11/22/2019 1. Left
--- NOTE | 2020-04-20 10:27 | PCDIET ---
Nutrition Follow-Up Complete: Inadequate oral intake related to oral intubation as evidenced by NPO status. Patient to meet estimated nutritional needs. Goal:Unable to progress towards goal. Additional Notes: Plans for extubation and removal of support this evening after arrives. Pt EN on hold. No further nutrition needs at this time.
--- NOTE | 2020-04-20 15:14 | WPDINFPN2 ---
Progress Note: A&P Assessment and Plan (1) COVID-19: Code(s): U07.1 - COVID-19 Status: Acute Assessment and Plan: 1. Covid 19 viral pneumonia, treated incompletely 2. Worsened lung infiltrates with fever, suspect viral but bacterial cause possible. MRSA screen +. New sputum with yeast, representing a commensal and not pathogenic 3. Respiratory failure due to above 4. Inferior pole renal mass, suspicious for malignancy from a radiographic standpoint REC Ctx #11, Vanc #9, continue both. PCT still in process to help guide length of therapy Subjective Date/time seen: 04/20/20 15:14 Interval history: still paralyzed. Norepi 6 mcg Exam Narrative: Exam Narrative: afebrile Const: General: no acute distress Resp: Effort & Inspection: normal respiratory effort Auscultation: clear to auscultation bilaterally Other: tachypneic Cardio: Rate: regular rate Rhythm: regular rhythm GI: Other: no masses, no organ enlargement Urinary Catheter: Urinary Catheter: patent and draining and urine clear Skin: General skin exam: normal color and no rashes or lesions noted Other: picc RUE without phlebitis Extrem: General: normal to inspection Objective Data Vital Signs Vital Signs: Vital Signs - 24 hr 04/19/20 15:52 04/19/20 15:56 04/19/20 15:59 Temperature Pulse Rate 63 63 68 Respiratory Rate 26 H 26 H 26 H Blood Pressure Pulse Oximetry 04/19/20 16:00 04/19/20 16:02 04/19/20 17:08 Temperature 37.4 C Pulse Rate 65 67 72 Respiratory Rate 26 H Blood Pressure 99/56 L 99/56 L Pulse Oximetry 93 92 04/19/20 17:27 04/19/20 17:28 04/19/20 17:29 Temperature Pulse Rate 64 64 64 Respiratory Rate 26 H 26 H 26 H Blood Pressure 95/52 L Pulse Oximetry 04/19/20 17:31 04/19/20 18:00 04/19/20 19:25 Temperature Pulse Rate 64 69 74 Respiratory Rate 26 H 26 H Blood Pressure 95/52 L 95/56 L 116/60 Pulse Oximetry 93 04/19/20 19:32 04/19/20 19:37 04/19/20 20:00 Temperature 37.3 C Pulse Rate 74 75 73 Respiratory Rate 26 H 26 H 26 H Blood Pressure 116/60 122/67 Pulse Oximetry 92 04/19/20 20:30 04/19/20 20:37 04/19/20 20:38 Temperature Pulse Rate 75 76 73 Respiratory Rate 26 H 26 H Blood Pressure 125/62 Pulse Oximetry 04/19/20 21:01 04/19/20 21:39 04/19/20 22:00 Temperature Pulse Rate 75 74 72 Respiratory Rate 26 H 26 H Blood Pressure 102/61 101/57 L Pulse Oximetry 93 92 93 04/19/20 23:15 04/20/20 00:00 04/20/20 00:26 Temperature 37.1 C Pulse Rate 71 74 80 Respiratory Rate 26 H 26 H 26 H Blood Pressure 106/58 L 101/59 L 101/59 L Pulse Oximetry 96 04/20/20 00:27 04/20/20 00:29 04/20/20 00:30 Temperature Pulse Rate 80 67 69 Respiratory Rate 26 H 26 H Blood Pressure 91/55 L 95/63 L Pulse Oximetry 96 04/20/20 02:00 04/20/20 02:50 04/20/20 02:51 Temperature Pulse Rate 68 74 60 Respiratory Rate 26 H 26 H Blood Pressure 107/61 Pulse Oximetry 96 94 04/20/20 02:53 04/20/20 02:54 04/20/20 03:00 Temperature Pulse Rate 66 56 L 65 Respiratory Rate 26 H 26 H 26 H Blood Pressure 107/71 123/74 Pulse Oximetry 94 04/20/20 03:35 04/20/20 04:00 04/20/20 04:15 Temperature 36.8 C Pulse Rate 66 70 71 Respiratory Rate 26 H 26 H Blood Pressure 128/76 128/76 Pulse Oximetry 94 94 04/20/20 04:16 04/20/20 04:17 04/20/20 04:49 Temperature Pulse Rate 763 H 72 72 Respiratory Rate 26 H 26 H Blood Pressure 128/76 Pulse Oximetry 94 04/20/20 05:00 04/20/20 05:11 04/20/20 05:16 Temperature Pulse Rate 73 76 77 Respiratory Rate 26 H 26 H 26 H Blood Pressure 117/68 Pulse Oximetry 04/20/20 05:17 04/20/20 06:00 04/20/20 06:01 Temperature Pulse Rate 74 73 78 Respiratory Rate 26 H 26 H Blood Pressure 117/68 117/68 Pulse Oximetry 94 04/20/20 08:00 04/20/20 08:59 04/20/20 09:13 Temperature 35.7 C L Pulse Rate 72 68 68 Respiratory Rate 26 H 26 H 26 H Blood
--- NOTE | 2020-04-20 16:15 | PM.IMPN ---
Progress Note: A&P Assessment and Plan (1) Acute hypoxemic respiratory failure: Code(s): J96.01 - Acute respiratory failure with hypoxia Status: Acute Assessment and Plan: Due to covid 19 and possible concomitant bacterial PNA. Intubated now, critical care managing vent. 04/20/20 16:15 patient is 69-year-old male with a hypoxic respiratory failure with COVID-19 pneumonia superimposed with bacterial pneumonia patient is currently intubated being treated with Rocephin and vancomycin, patient is off flolan, on fentanyl 150mcg and versed 4mg/hr for sedation, patient is on levophed 8mcg/naida and on pyralactic, seen by ID and managed by schedule checker, D/W schedule checker patient still in critical condition planning to wean the patient off ventilator as tolerated and further recommendation to follow, today 04/20 patient on vent unable to provide any review of symptoms, family has decided to later today on 04/20 withdraw care and patient will be extubated. Patient is seen outside glass door and examined. (2) Pneumonia: Qualifiers: Pneumonia type: due to unspecified organism Laterality: bilateral Lung location: unspecified part of lung Qualified Code(s): J18.9 - Pneumonia, unspecified organism Code(s): J18.9 - Pneumonia, unspecified organism Status: Acute Assessment and Plan: He was diagnosed with COVID on 03/31/2020 He has been started on ceftriaxone and vancomycin for possible superimposed PNA. (3) COVID-19: Code(s): U07.1 - COVID-19 Status: Acute Assessment and Plan: He completed a course of dexamethasone, and received remdesivir during his previous hospitalization but not a full course. Continue isolation precautions. (4) Paroxysmal atrial fibrillation: Code(s): I48.0 - Paroxysmal atrial fibrillation Status: Chronic Assessment and Plan: He is currently in a sinus rhythm with occasional atrial ectopy. No longer on long-term anticoagulation for unclear reasons. His carvedilol and sotalol are on hold due to low Bp (5) Congestive heart failure: Qualifiers: Heart failure type: unspecified Heart failure chronicity: unspecified Qualified Code(s): I50.9 - Heart failure, unspecified Code(s): I50.9 - Heart failure, unspecified Status: Acute Assessment and Plan: Diastolic congestive heart failure appears clinically compensated, (6) Elevated troponin: Code(s): R79.89 - Other specified abnormal findings of blood chemistry Status: Acute Assessment and Plan: Mildly elevated on admission likely demand ischemia from PNA, resp distress. Subjective Date/time seen: 04/20/20 16:15 patient is 69-year-old male with a hypoxic respiratory failure with COVID-19 pneumonia superimposed with bacterial pneumonia patient is currently intubated being treated with Rocephin and vancomycin, patient is off flolan, on fentanyl 150mcg and versed 4mg/hr for sedation, patient is on levophed 8mcg/naida and on pyralactic, seen by ID and managed by schedule checker, D/W schedule checker patient still in critical condition planning to wean the patient off ventilator as tolerated and further recommendation to follow, today 04/20 patient on vent unable to provide any review of symptoms, family has decided to later today on 04/20 withdraw care and patient will be extubated. Patient is seen outside glass door and examined. Review of Systems Review of Systems: All systems reviewed & are unremarkable except as noted in HPI and below Exam Const: General: comfortable and no acute distress HENMT: General nose exam: Normal nares present Other: ET tube in place. Neck:
--- NOTE | 2020-04-20 17:16 | PC.NURSE ---
Family wishes to withdraw care. Will start to wean off paralytic and some sedation prior to withdrawing care, per MD orders.
[2020-04-20] MEDS: LORazepam INJ (*CRX) 2 MG/ML VIAL 4 MG IV PUSH ×4 (19:49→23:00)
[2020-04-21] VITALS: PULSE 70; RESP 20
[2020-04-21 00:47] VITALS: PULSE 0; RESP 0
--- NOTE | 2020-04-21 02:30 | PC.NURSE ---
pt see expiration assessment[facility] both top and bottom [place] [facility] [place] [facility] use with wipes
[2020-04-21 12:18] LABS: Chloride Rand Ur <20 mmol/L (32-290); Creatinine Random Urine 189 mg/dL (20-320)
[2020-04-21 13:11] LABS: Procalcitonin 0.65 ng/mL (<0.10)
--- NOTE | 2020-05-11 09:10 | PM.DDS ---
Discharge Sum: Prov Provider Primary care physician: Deepak Hood DO Admitting provider: Deena Acosta MD Discharge Sum: Summary Date and Time Date of admission: 04/10/20 10:19 Date of : 04/21/20 Time of : 00:20 Summary Details: patient is 69-year-old male with a hypoxic respiratory failure with COVID-19 pneumonia superimposed with bacterial pneumonia patient is currently intubated being treated with Rocephin and vancomycin, patient is off flolan, on fentanyl 150mcg and versed 4mg/hr for sedation, patient is on levophed 8mcg/naida and on pyralactic, seen by ID and managed by lamp inspector, D/W lamp inspector patient still in critical condition planning to wean the patient off ventilator as tolerated and further recommendation to follow, today 04/20 patient on vent unable to provide any review of symptoms, family has decided on 04/20 to withdraw care and patient was extubated. On 04/21/2020 at 00:20 patient . Additional Data Confirmation of as documented by pronouncing clinician: no pulse, no respirations, no heart sounds and pupils fixed and dilated Family: contacted Attending/PCP notified?: Yes Attending physician: Deena Acosta MD Was code activated?: No Autopsy requested?: No eligibility examiner notified?: Yes Organ bank notified?: Yes Advance directives: No Hospice patient?: No
== END 2020-04-21 01:00 | disposition expired | DRG 207 ==
LOC: ANHED 17:47 → ANHICU 17:49 → ANH3MEDSUR 04-10 14:09 → ANHICU 04-12 09:55
PROVIDERS: Emergency Medicine Emergency Medical Services; Family Medicine; Hospitalist; Internal Medicine; Internal Medicine Infectious Disease; Internal Medicine Nephrology; Physician Assistant; Admitting Provider Family Medicine; Emergency Provider Emergency Medicine; PCP Internal Medicine; Visit Provider Family Medicine
DX: U07.1 COVID-19 (principal); J96.01 Acute respiratory failure with hypoxia; J18.9 Pneumonia, unspecified organism; N17.0 Acute kidney failure with tubular necrosis; I50.32 Chronic diastolic (congestive) heart failure; I13.0 Hypertensive heart and chronic kidney disease with heart failure and stage 1 through stage 4 chronic kidney disease, or unspecified chronic kidney disease; C64.1 Malignant neoplasm of right kidney, except renal pelvis; R57.9 Shock, unspecified; I48.0 Paroxysmal atrial fibrillation; I25.10 Atherosclerotic heart disease of native coronary artery without angina pectoris; Z95.5 Presence of coronary angioplasty implant and graft; N18.3 Chronic kidney disease, stage 3 (moderate); Z90.5 Acquired absence of kidney; F41.8 Other specified anxiety disorders; E78.5 Hyperlipidemia, unspecified; G47.33 Obstructive sleep apnea (adult) (pediatric); I34.0 Nonrheumatic mitral (valve) insufficiency; I71.2 Thoracic aortic aneurysm, without rupture; Z95.1 Presence of aortocoronary bypass graft; Z96.651 Presence of right artificial knee joint; Z66 Do not resuscitate; I70.209 Unspecified atherosclerosis of native arteries of extremities, unspecified extremity
CPT/HCPCS: 31500; 36415; 36569; 36600; 70450; 71045; 76775; 80048; 80053; 80061; 80069; 80202; 81001; 82375; 82436; 82570; 82728; 82805; 83050; 83605; 83615; 83690; 83735; 83880; 84100; 84133; 84145; 84300; 84484; 85025; 85027; 85380; 85610; 85730; 85999; 86140; 87040; 87070; 87081; 87086; 87205; 93005; 93306; 93923; 93925; 94002; 94003; 94640; 96361; 96365; 96367; 96372; 96375; 96376; 97110; 97116; 97162; 97165; 97535; 99285; A9270; C1751; C9113; G0378; G0379; J0131; J0330; J0696; J1644; J1650; J1940; J2060; J2250; J2405; J2704; J2765; J3010; J3370; J7030; J7040; J7060